=== PATIENT | male | born 1965 | race Caucasian/White ===

== ENCOUNTER → 2017-05-06 | Outpatient (CLI) | payer OTHER ==
--- NOTE | 2017-05-06 21:33 | MR ---
MR right hip HISTORY: Right hip pain Correlation to plain film 03/30/2017, 04/20/2017 Multiplanar multisequence images of pelvis and small [id number] images obtained through the right hip MRI findings correlate with plain film showing serpiginous linear right femoral head low signal on T1 and T2-weighted sequences at the level of the sclerotic line seen on plain film, intermediate signal on T1, high signal on T2-weighted sequences involves the proximal femur to include intertrochanteric region to the femoral head. There is a right hip joint effusion. Articular cartilage signal is mildl y irregular the medial aspect. IMPRESSION: Osteonecrosis right femoral head with mild collapse. Joint effusion. Bone marrow edema is present.
== END | disposition home or self-care (01) ==
LOC: RADMRIMAIN 14:38
PROVIDERS: ATTEND Orthopaedic Surgery
DX: M87.851 Other osteonecrosis, right femur (principal); M25.451 Effusion, right hip; M89.8X8 Other specified disorders of bone, other site

== ENCOUNTER → 2017-09-06 | Outpatient (CLI) | payer OTHER ==
--- NOTE | 2017-09-06 16:09 | MR ---
EXAMINATION TYPE: MR knee RT wo con DATE OF EXAM: 09/06/2017 COMPARISON: Right knee x-ray March 30, 2017. HISTORY: Rt knee pain TECHNIQUE: Multiplanar, multisequence images of the knee is performed without IV contrast. FINDINGS: LATERAL MENISCUS: Anterior and posterior horns are intact without tear. MEDIAL MENISCUS: Anterior horn is intact without tear. Oblique increased signal posterior horn of lat eral meniscus appears to extend to the central inferior surface on sagittal image 6. CRUCIATE LIGAMENTS: The anterior and posterior cruciate ligaments are intact and unremarkable. COLLATERAL LIGAMENTS: The medial collateral ligament and lateral collateral ligament complex are inta ct. Mild fluid signal surrounds medial collateral ligament. EXTENSOR MECHANISM: Visualized quadriceps and patellar tendons are intact. EFFUSION: There is small to moderate-sized suprapatellar joint effusion. POPLITEAL CYST: No popliteal/martin cyst. TRICOMPARTMENT SPACES: There is mild tricompartment joint space loss. No significant spurring is seen . CARTILAGE: There is no significant chondromalacia patella. There is mild fissuring of articular carti alf medial tibial femoral space coronal image 19. Mild diffuse cartilaginous loss lateral tibiofemor al compartment is seen. BONE MARROW SIGNAL: No focal abnormal marrow signal is appreciated. OTHER: No additional significant abnormality is appreciated. IMPRESSION: 1. Oblique full-thickness tear posterior horn of medial meniscus. 2. Mild MCL sprain injury. 3. Background mild tricompartment degenerative changes as detailed above. 4. Small to moderate-sized suprapatellar joint effusion.
== END | disposition home or self-care (01) ==
LOC: RADMRIMAIN 15:13
PROVIDERS: ATTEND Orthopaedic Surgery
DX: S83.241A Other tear of medial meniscus, current injury, right knee, initial encounter (principal); S83.411A Sprain of medial collateral ligament of right knee, initial encounter; M17.11 Unilateral primary osteoarthritis, right knee

== ENCOUNTER → 2018-01-02 | Outpatient (CLI) | payer OTHER ==
--- NOTE | 2018-01-02 10:32 | XR ---
EXAMINATION TYPE: XR ribs LT w pa chest xray DATE OF EXAM: 01/02/2018 COMPARISON: NONE HISTORY: Pain TECHNIQUE: Single view of the chest views of the ribs are submitted. FINDINGS: The lungs demonstrate diffuse granulomatous change. No Evidence for pneumothorax. No evide nce for focal contusion. Mediastinal structures are midline. Evaluation of the ribs demonstrate non displaced fractures of left ribs 5 through 9. IMPRESSION: 1. Fractures of left ribs 5 through 9. No evidence for pneumothorax. 2. Remote granulomatous disease.
== END | disposition home or self-care (01) ==
LOC: RADXRYALE 09:52
PROVIDERS: ATTEND Family Medicine
DX: S22.42XA Multiple fractures of ribs, left side, initial encounter for closed fracture (principal)

== ENCOUNTER → 2018-01-04 | Outpatient (CLI) | payer OTHER ==
--- NOTE | 2018-01-05 00:38 | CT ---
EXAMINATION TYPE: CT chest w con DATE OF EXAM: 01/04/2018 COMPARISON: 04/09/2014 HISTORY: 52 year-old male shortness of breath, fell 5 days ago. Pain lt upper ribs, multiple rib frac tures. TECHNIQUE: Contiguous axial scanning of the chest after the administration of 100 mL of Isovue 300. Coronal/sagittal reconstructions performed. CT DLP: 661mGycm. Automatic exposure control utilized for a dose reduction. FINDINGS: Heart normal size without pericardial effusion. Coronary vessel calcifications are present. Aorta normal caliber with conventional arch vessel branching anatomy. Numerous scattered small mediastinal lymph nodes are unchanged. Partially calcified precarinal lymph node is stable in size at 1.1 cm but with increasing calcification in the interval. Partially calcifi ed subcarinal lymph node. Innumerable calcified pulmonary nodules are demonstrated. There is mild susy trilobular emphysema and patchy atelectasis or scarring at the peripheral right base. Trace left pleu ral effusion. Pdug-am-[id number] diffuse bronchial wall thickening. Low-attenuation of the liver compatible with fatty infiltration. Visualized upper abdomen otherwise s hows moderate stool burden. Bones: Nondisplaced to mildly displaced fractures of the left lateral fifth, sixth, seventh, ninth, a nd 10th ribs. Especially along the lateral fourth intercostal space, there is moderate soft tissue th ickening with a 8 mm focus of vascular blush, reference axial image 32. Mild endplate spondylosis mid to lower thoracic spine. IMPRESSION: 1. Innumerable calcified pulmonary nodules, increased from 2014 suggest prior granulomatous disease, healed varicella pneumonia, or healed fungal infection. 2. COPD with mild emphysema. Trace left pleural effusion. 3. Nondisplaced to mildly displaced fractures of the left lateral fifth, sixth, seventh, ninth, and 1 0th ribs. There is prominent soft tissue swelling and hematoma in the left fourth intercostal space w ith a small 8mm vascular blush located within the intercostal space suggesting a small area of active bleeding. 4. Hepatic steatosis.
== END | disposition home or self-care (01) ==
LOC: RADCTMAIN 19:12
PROVIDERS: ATTEND Family Medicine
DX: J43.9 Emphysema, unspecified (principal); S22.42XA Multiple fractures of ribs, left side, initial encounter for closed fracture; R91.8 Other nonspecific abnormal finding of lung field
CPT/HCPCS: 71260; Q9967

== ENCOUNTER → 2018-07-11 | Outpatient (CLI) | payer OTHER | END | disposition home or self-care (01) | LOC: LABPAT 13:50 | PROVIDERS: ATTEND Orthopaedic Surgery | DX: Z01.812 Encounter for preprocedural laboratory examination (principal) | CPT/HCPCS: 87070 ==

== ENCOUNTER → 2018-07-20 | Outpatient (CLI) | payer OTHER ==
[2018-07-20 13:56] LABS: Potassium 4.8 mmol/L (3.5-5.1)
[2018-07-20 14:02] LABS: Anisocytosis Slight; Basophils # (A) 0.1 k/uL (0-0.2); Basophils % (A) 1 %; Eosinophils # (A) 0.2 k/uL (0-0.7); Eosinophils % (A) 3 %; HGB 12.8 gm/dL (13.0-17.5); Hypochromasia Slight; Lymphocytes # (A) 1.9 k/uL (1.0-4.8); Lymphocytes % (A) 20 %; MCH 27.6 pg (25.0-35.0); MCHC 30.5 g/dL (31.0-37.0); MCV 90.4 fL (80.0-100.0); Mean Platelet Volume 6.8; Monocytes # (A) 0.7 k/uL (0-1.0); Monocytes % (A) 8 %; Neutrophils # (A) 6.1 k/uL (1.3-7.7); Neutrophils % (A) 66 %; Platelet Count 310 k/uL (150-450); RBC 4.65 m/uL (4.30-5.90); RDW 17.5 % (11.5-15.5); WBC 9.3 k/uL (3.8-10.6)
[2018-07-20 14:19] LABS: INR 0.9 (<1.2); Prothrombin Time 9.9 sec (9.0-12.0)
== END | disposition home or self-care (01) ==
LOC: LABPAT 13:11
PROVIDERS: ATTEND Orthopaedic Surgery
DX: Z01.812 Encounter for preprocedural laboratory examination (principal); M16.11 Unilateral primary osteoarthritis, right hip; I48.91 Unspecified atrial fibrillation; E87.8 Other disorders of electrolyte and fluid balance, not elsewhere classified
CPT/HCPCS: 36415; 80051; 85025; 85610

== ENCOUNTER → 2018-08-29 | Outpatient (CLI) | payer OTHER ==
[2018-08-29 15:41] LABS: Anisocytosis Slight; HCT 40.8 % (39.0-53.0); HGB 12.8 gm/dL (13.0-17.5); Hypochromasia Moderate; MCHC 31.2 g/dL (31.0-37.0); MCV 89.7 fL (80.0-100.0); Mean Platelet Volume 7.1; Platelet Count 389 k/uL (150-450); RBC 4.55 m/uL (4.30-5.90); RDW 18.1 % (11.5-15.5); WBC 8.8 k/uL (3.8-10.6)
[2018-08-29 15:43] LABS: INR 0.9 (<1.2); Prothrombin Time 10.1 sec (9.0-12.0)
[2018-08-29 17:30] LABS: Band Neutrophils % 2 %; Eosinophils # (M) 0.44 k/uL (0-0.7); Lymphocytes # (M) 2.99 k/uL (1.0-4.8); Monocytes # (M) 0.26 k/uL (0-1.0); Neutrophils % (M) 56 %; Nucleated Red Blood Cells 0 /100 WBC (0-0); Total Cells Counted 100
[2018-08-29 17:31] LABS: Poikilocytosis (M) Present; Polychromasia Present; Target Cells Present
[2018-08-29 18:57] LABS: Anion Gap 7.7 mmol/L (4.00-12.00); Carbon Dioxide 23.3 mmol/L (21.6-31.8); Potassium 4.3 mmol/L (3.5-5.5)
== END | disposition home or self-care (01) ==
LOC: LABWHC1 14:34
PROVIDERS: ATTEND Orthopaedic Surgery
DX: Z01.812 Encounter for preprocedural laboratory examination (principal); M16.11 Unilateral primary osteoarthritis, right hip
CPT/HCPCS: 36415; 80051; 85025; 85610; 85730

== ENCOUNTER → 2018-09-01 | Outpatient (CLI) | payer OTHER | END | disposition home or self-care (01) | LOC: LABWHC1 12:58 | PROVIDERS: ATTEND Orthopaedic Surgery | DX: Z53.1 Procedure and treatment not carried out because of patient's decision for reasons of belief and group pressure (principal) ==

== ENCOUNTER 2018-09-04 07:30 | Inpatient (IN) | payer OTHER ==
[2018-08-30 13:46] VITALS: BMI 29.2
--- NOTE | 2018-09-03 18:57 | HP ---
HISTORY AND PHYSICAL REASON FOR ADMISSION: Surgery is scheduled for 09/04/2018 HISTORY OF PRESENT ILLNESS: Renzo Purvis is a 53-year-old patient seen with symptomatic right hip avascular necrosis/osteoarthritis. We discussed options. He elected to proceed with right total hip arthroplasty. Consent was obtained. Preoperative medical clearance had been obtained from Dr. Rice. PAST MEDICAL HISTORY: Hypertension, hyperlipidemia, asthma, COPD. PAST SURGICAL HISTORY: Right knee arthroscopy. DAILY MEDICATIONS: Atorvastatin, Atrovent, Diltiazem, omeprazole. ALLERGIES: None. SOCIAL HISTORY: He smokes 1/4 pack cigarettes daily. PHYSICAL EXAMINATION: Physical evaluation of the right hip: There is diffuse tenderness, very limited range of motion with severe pain. Positive hip impingement sign. Straight leg raise negative. Right lower extremity approximately 1 inch shorter than the left. Distal neurovascular exam is intact. Radiographs of the right hip reveal osteoarthritic changes, evidence of avascular necrosis of the femoral head. IMPRESSION: 1. Right hip avascular necrosis/osteoarthritis. 2. Hypertension. 3. Chronic obstructive pulmonary disease. 4. Tobacco use. PLAN: Right total hip arthroplasty. Surgery is scheduled for 09/04/2018. MMODL / IJN: [id number] /
[~2018-09-04 07:30] MED LIST: HYDROmorphone 0.5 MG/0.5 ML SYRINGE IVP PRN; LACTATED RINGERS 1,000 ML IV SCH; LIDOCAINE 1% 20 ML VIAL (10MG/ML) FOR IV START INTRADERMA PRN; TRANEXAMIC ACID 1,000 MG in SODIUM CHLORIDE 0.9% 100 ML IVPB ONE; ceFAZolin IN SWFI 2 GM/20 ML SYRINGE IVP ONE
[2018-09-04] MEDS: ACETAMINOPHEN TAB 500 MG TAB PO ONE ×2 (11:03→16:31)
[2018-09-04] MEDS: MELOXICAM 7.5 MG TAB PO ONE ×2 (11:03→16:31)
[2018-09-04] MEDS: ONDANSETRON 4 MG/2 ML VIAL IVP ONE ×2 (11:47→16:32)
[2018-09-04] MEDS ORDERED: ROPIVACAINE 246.25 MG, EPINEPHrine 0.5 MG, KETOROLAC 30 MG, WATER FOR INJECTION,STERILE... MISCELLANE ONE ×4 (12:13)
[2018-09-04] MEDS ORDERED: PROPOFOL 10 MG/ML 20 ML VIAL IV ONE (12:51)
[2018-09-04] MEDS ORDERED: TRANEXAMIC ACID 1,000 MG/10 ML VIAL ONE (12:51)
[2018-09-04] MEDS ORDERED: PHENYLEPHRINE-0.9% NACL SYG 1 MG/10 ML SYRINGE ONE (12:51)
[2018-09-04] MEDS ORDERED: SODIUM CHLORIDE 0.9% 100 ML BAG ONE (12:51)
[2018-09-04] MEDS ORDERED: MIDAZOLAM 2 MG/2 ML VIAL ONE (12:51)
[2018-09-04] MEDS ORDERED: ceFAZolin 3,000 MG in SODIUM CHLORIDE 0.9% IRRIGATIO 3,000 ML IRRIGATION ONE (13:40)
[2018-09-04] MEDS ORDERED: traMADol 50 MG TAB PO PRN (15:01)
[2018-09-04] MEDS ORDERED: NALOXONE 0.4 MG/ML 1 ML VIAL IV PRN (15:01)
[2018-09-04] MEDS ORDERED: HYDROcodone/APAP 7.5-325MG 1 EACH TAB PO PRN (15:01)
[2018-09-04] MEDS ORDERED: ONDANSETRON 4 MG/2 ML VIAL IVP PRN (15:01)
[2018-09-04] MEDS ORDERED: HYDROmorphone 0.5 MG/0.5 ML SYRINGE IVP PRN ×2 (15:01)
[2018-09-04] MEDS ORDERED: HYDROmorphone 1 MG/ML 1 ML SYRINGE IVP PRN (15:01)
--- NOTE | 2018-09-04 15:01 | P.OP ---
Date of Procedure: 09/04/18 Preoperative Diagnosis: Right hip avascular necrosis/osteoarthritis Postoperative Diagnosis: Same Procedure(s) Performed: Direct anterior right total hip arthroplasty Implants: 1. Depuy Corail KA with collar size 14 press-fit femoral stem 2. Depuy pinnacle 58 mm press-fit acetabular shell 3. Depuy pinnacle polyethylene acetabular liner +4 neutral 58 mm OD 36 mm ID 4. Biolox delta ceramic femoral head +1.5 36 mm Anesthesia: local, spinal Surgeon: Bob Rock [facility] Chair #1: Sam Montes Estimated Blood Loss (ml): 100 Pathology: other (Femoral head) Condition: stable Disposition: PACU Indications for Procedure: 53-year-old patient seen with symptomatic right hip avascular necrosis/osteoarthritis. After we discussed treatment options, he elected to proceed with total hip arthroplasty. Operative Findings: See description of procedure Description of Procedure: The patient was taken to the operative suite. Patient underwent a spinal anesthetic by the department of anesthesia. Patient was then transferred to the [place] table. Patient was given preoperative IV antibiotics and TXA. Both lower extremities were placed in standard leg spars. The hip was then prepped and draped in the normal sterile orthopedic fashion. A standard anterior incision was made beginning 3 cm lateral and 1 cm distal to the ASIS extending 10 cm. Dissection was then carried down through the subcutaneous soft tissues down to the fascia overlying the tensor fascia mikey. An incision was now made through the fascia. Careful dissection was taken down exposing the tensor fascia mikey muscle. A Cobra retractor was now placed along the medial femoral neck and a second one along the lateral femoral neck. The venous circumflex vessels were now identified, cauterized and clipped. We identified the anterior hip capsule. An incision was made through the hip capsule along the lateral border. I performed a partial anterior capsulectomy. Retractors were now placed around the femoral neck itself. A femoral neck cut was now made with a sagittal saw. It was completed with an osteotome at the lateral neck area. The femoral head was now removed without difficulty. There was obvious significant avascular necrosis of the femoral head as well as osteoarthritic changes. The extremity was now rotated to 45 of external rotation. It was locked in position. Residual labrum was now debrided out. Serial reaming was performed of the acetabulum while Joey PINEDA assisted holding an anterior retractor for exposure. Once we reached the appropriate size and a trial was position and fit nicely. The appropriate size was now chosen opened and made available. It was introduced into the acetabulum without difficulty. The C-arm/fluoroscopy was now brought into the operative field. We made sure we had a true AP pelvic view. We now under direct C-arm/fluoroscopy introduced into the acetabular component with appropriate version and inclination. I held the cup in appropriate position well Joey PINEDA used a mallet to seat the acetabular component. I noted the component now to be well seated and stable. Acetabular cup introduce her was removed. The C-arm was pulled back. An appropriate liner was introduced and clicked into position. It was felt to be stable. At this point retractors were removed. The extremity was now placed into 120 external rotation with no traction. The leg was now dropped to the ground and adducted. Appropriate retractors were now positioned along the proximal femur. We also placed our femoral look into position. Additional capsular releasing was performed to gain access to the proximal femur. We now used a box osteotome. A canal finder was now utilized. Serial broaching was now performed with the assistance of Joey PINEDA tapping the broaches down with a mallet while held the broach in appropriate rotation and position. This was done until we reached the appropriate size with good overall rotational stability. Appropriate calcar planing was performed. A trial head/neck was placed into position. The hip was now reduced. The C-arm/fluoroscopy was brought back into the operative field. A spot film was obtained of the nonoperative hip. A spot film was obtained of the trial components. Overlays were performed, we noted good overall alignment and positioning for determining leg length. The C- arm/fluoroscopy was pulled back. Retractors were repositioned and the hip was dislocated. The leg was again taken down to the ground and adducted. Appropriate retractors were repositioned as well as the femoral hook. All trial components were removed. The femoral implant was opened along with the femoral head. The femoral implant was introduced on the appropriate handle into our pre-broached area. I held the component position well Joey PINEDA used a mallet to seat the femoral component. The femoral component was now noted to be well seated and stable.. The femoral head was introduced with good positioning and fixation noted. Retractors were now removed. The hip was now reduced. There appeared be good positioning of the hip confirmed on intraoperative fluoroscopy. Spot films were obtained to document this. A second gram of TXA was given. The deep and superficial soft tissues were infiltrated with local analgesic. Bipolar cautery had been utilized intermittently through the procedure for hemostasis. The wound was irrigated copiously with pulse lavage mechanical irrigation. The fascia was repaired with Vicryl suture. The subcutaneous soft tissues were repaired in layers with Vicryl suture. The skin was approximated with pernio/Dermabond. Sterile dressings were applied. Patient was then awakened, transferred to a bed and taken to recovery in stable con dition. Joey PINEDA assisted with the complex procedure.
[2018-09-04] MEDS ORDERED: IV FLUID CONTINUATION 1,000 ML IV ONE ×2 (15:18)
--- NOTE | 2018-09-04 15:56 | XR ---
Limited right hip HISTORY: Hip arthroplasty Intraoperative C-arm image documents the procedure.
--- NOTE | 2018-09-04 15:57 | FL ---
Fluoroscopy HISTORY: Hip arthroplasty 34 seconds fluoroscopy time supplied to the referring clinician. 1 intraoperative C-arm images docum ent the procedure. See dictated report from orthopedic surgery.
[2018-09-04] MEDS: LACTATED RINGERS 1,000 ML IV SCH (18:20)
[2018-09-04] MEDS ORDERED: SENNOSIDES-DOCUSATE SODIUM 1 EACH TAB PO SCH (21:00)
[2018-09-04] MEDS ORDERED: CYCLOBENZAPRINE 10 MG TAB PO PRN (21:18)
[2018-09-04] MEDS ORDERED: LORazepam 2 MG/ML INJ IV PRN ×3 (21:18)
[2018-09-04] MEDS ORDERED: IPRATROPIUM-ALBUTEROL 3 ML NEB INHALATION PRN (21:18)
[2018-09-04] MEDS ORDERED: THIAMINE 100 MG/ML 2 ML VIAL IM STA (21:18)
[2018-09-04] MEDS ORDERED: cloNIDine HCL 0.1 MG TAB PO PRN (21:19)
[2018-09-04] MEDS ORDERED: DILTIAZEM CD 120 MG CAP.ER.24H PO SCH (21:30)
[2018-09-04] MEDS: THIAMINE 100 MG TAB PO SCH (22:11)
[2018-09-04] MEDS: NICOTINE 14MG/24HR PATCH TRANSDERM SCH (22:57)
[2018-09-04] MEDS: HYDROcodone/APAP 7.5-325MG 1 EACH TAB PO PRN (22:59)
[2018-09-04] MEDS: ceFAZolin IN SWFI 2 GM/20 ML SYRINGE IVP SCH (23:00)
--- NOTE | 2018-09-04 23:14 | CONS ---
CONSULTATION REASON FOR CONSULTATION: Advice regarding atrial fibrillation and other medical issues requested by Dr. Rock. HISTORY OF PRESENT ILLNESS: This 53-year-old gentleman with a past medical history of multiple medical problems including COPD, DVT, GERD, hypertension, hyperlipidemia, history of liver disease with liver cirrhosis, hemorrhoids, anxiety being followed by Dr. Zander Rice in the outpatient setting. The patient underwent right total knee joint arthroplasty. There is no history of fever, rigors. No history of headache, loss of consciousness or seizures. Patient reports the patient drinks about at least 4 drinks of alcohol per day. PAST MEDICAL HISTORY: History of atrial fibrillation, COPD, DVT, GERD, hyperlipidemia, history of liver cirrhosis, colonoscopy, anxiety. MEDICATIONS: Prior to admission home medications are: 1. Vistaril 50 mg q.h.s. and 25 mg q.a.m. 2. Prilosec 20 mg a.c. b.i.d. 3. Atrovent 2 puffs q.6h p.r.n. 4. Gabapentin 800 mg q.h.s. 5. 1200 mg p.o. daily. 6. Diltiazem 120 mg p.o. q.h.s. 7. Flexeril 10 mg t.i.d. p.r.n. 8. Lipitor 40 mg p.o. daily. ALLERGIES: CIPRO, PENICILLIN, BACTRIM. FAMILY HISTORY: History of cancer in the family. SOCIAL HISTORY: History of smoking, and alcohol. REVIEW OF SYSTEMS: ENT: No diminished vision. No diminished hearing. CARDIOVASCULAR: No angina or palpitations. RESPIRATION: Occasional cough. GI no nausea or vomiting. : No dysuria. NERVOUS SYSTEM: No numbness or weakness. ALLERGY/IMMUNOLOGY: No asthma or hayfever. MUSCULOSKELETAL: As mentioned earlier. HEMATOLOGY/ONCOLOGY: No history of anemia. ENDOCRINE: No history of diabetes or hypothyroidism. CONSTITUTIONAL: As mentioned earlier. DERMATOLOGY: Negative. RHEUMATOLOGY: Negative. PSYCHIATRY: As mentioned earlier. PHYSICAL EXAMINATION: Alert and oriented x3, pulse 97, blood pressure 130/83, respirations 16, temperature 98.2, pulse ox 94% on room air. HEENT is conjunctivae normal. Oral mucosa moist. NECK is no jugular venous distention. No carotid bruit. No lymph node enlargement. CARDIOVASCULAR: S1-S2. No S3, no S4. RESPIRATORY: Breath sounds diminished in the bases. Bilateral scattered rhonchi and crackles. Expiratory wheezing also present. ABDOMEN: Soft, nontender. LEGS: Status post right hip surgery. NERVOUS SYSTEM: Higher functions as mentioned earlier. Moves all four extremities. No focal deficits. LYMPHATICS: No lymph nodes palpable in the neck, axillae or groin. SKIN: No ulcer. No rash. No bleeding. JOINTS: As mentioned earlier. LABS: Which are done prior to admission include a hemoglobin is 12.8 and platelets normal and chemistry was sodium 134. AST/ALT was 15 and 51. Vitamin D was 9.9 2016. ASSESSMENT: 1. Status post right total hip joint arthroplasty. 2. History of ETOH. 3. History of chronic obstructive pulmonary disease. 4. Atrial fibrillation. 5. History of deep vein thrombosis. 6. Gastroesophageal reflux disease. 7. Hyperlipidemia. 8. History of liver disease and liver cirrhosis. 9. History of hemorrhoids. 10.History of anxiety. 11.History of continued ongoing nicotine dependence. 12.History of THC. RECOMMENDATIONS AND DISCUSSION: In this 53-year-old gentleman who presented with multiple complex medical issues, we will monitor the patient closely, continue the current medications, monitoring, management and symptomatic treatment. I would recommend DVT prophylaxis. I would also recommend [facility] protocol for alcohol withdrawal. Resume the home medications. Monitor blood pressure closely. Otherwise, incentive spirometry. I would also recommend a course of bronchodilators also. We will follow the patient closely with you and the patient may be asked to follow up with primary physician closely after discharge. Thank you, Dr. Rock for asking us to participate in the care of this patient. BRENDAL / MITRA: [id number] / ALEXANDER
[2018-09-05] MEDS: LACTATED RINGERS 1,000 ML IV SCH (01:40)
[2018-09-05] MEDS: HYDROcodone/APAP 7.5-325MG 1 EACH TAB PO PRN (04:15)
[2018-09-05] MEDS: ceFAZolin IN SWFI 2 GM/20 ML SYRINGE IVP SCH (04:15)
[2018-09-05] MEDS ORDERED: PANTOPRAZOLE 40 MG TABLET PO SCH (07:30)
[2018-09-05 07:48] VITALS: BP 138/82; RESP 18; TEMP 98.2
[2018-09-05] MEDS: THIAMINE 100 MG TAB PO SCH (07:59)
[2018-09-05] MEDS: NICOTINE 14MG/24HR PATCH TRANSDERM SCH (08:01)
[2018-09-05 08:18] LABS: Anisocytosis Slight; Basophils # (A) 0.1 k/uL (0-0.2); Basophils % (A) 1 %; Eosinophils # (A) 0.2 k/uL (0-0.7); Eosinophils % (A) 2 %; HCT 36.7 % (39.0-53.0); HGB 11.2 gm/dL (13.0-17.5); Hypochromasia Marked; Lymphocytes # (A) 1.1 k/uL (1.0-4.8); Lymphocytes % (A) 14 %; MCH 27.8 pg (25.0-35.0); MCHC 30.4 g/dL (31.0-37.0); MCV 91.2 fL (80.0-100.0); Mean Platelet Volume 7.3; Monocytes # (A) 0.6 k/uL (0-1.0); Monocytes % (A) 8 %; Neutrophils # (A) 5.6 k/uL (1.3-7.7); Neutrophils % (A) 73 %; Platelet Count 308 k/uL (150-450); RBC 4.03 m/uL (4.30-5.90); RDW 16.8 % (11.5-15.5); WBC 7.7 k/uL (3.8-10.6)
[2018-09-05] MEDS ORDERED: ATORVASTATIN 40 MG TAB PO SCH (09:00)
[2018-09-05] MEDS ORDERED: ENOXAPARIN 40 MG/0.4 ML SYRINGE SQ SCH (09:00)
[2018-09-05] MEDS ORDERED: MELOXICAM 7.5 MG TAB PO SCH (09:00)
[2018-09-05] MEDS ORDERED: hydrOXYzine PAMOATE 25 MG CAP PO SCH ×2 (09:00→21:00)
[2018-09-05] MEDS ORDERED: GABAPENTIN 400 MG CAP PO SCH (09:00)
[2018-09-05] MEDS: IPRATROPIUM-ALBUTEROL 3 ML NEB INHALATION SCH ×2 (09:12→13:23)
[2018-09-05 09:37] VITALS: PULSE 93
--- NOTE | 2018-09-05 13:01 | P.PN ---
Subjective Progress Note Date: 09/05/18 Principal diagnosis: Status post direct anterior right total hip arthroplasty Patient evaluated at bedside, is doing very well. No chest pain or shortness of breath. No acute pain involving the hip. No issues with therapy. Objective - Vital Signs Vital signs: Vital Signs Temp 98.2 F 09/05/18 07:00 Pulse 90 09/05/18 09:22 Resp 18 09/05/18 08:07 BP 138/82 09/05/18 07:00 Pulse Ox 99 09/05/18 07:00 Intake & Output 09/04/18 09/05/18 09/05/18 18:59 06:59 18:59 Intake Total 1126 180 Output Total 100 1050 Balance 1026 -870 Intake: IV 1126 Oral 180 Output: Urine 1050 Estimated Blood Loss 100 Other: Voiding Method Urinal # Voids 1 - Exam Right lower extremity: Incision is clean, dry, and intact. The exofin fusion tape is in good condition. There is minimal soft tissue swelling and ecchymosis surrounding the medial and lateral aspects of the incision. Calf is soft, no tenderness with palpation. Plantar flexion, dorsiflexion, EHL, FHL are intact. Sensory exam to light touch throughout the extremity is intact, dorsal pedis pulses 2+. - Labs CBC & Chem 7: 09/05/18 07:23 Labs: Abnormal Lab Results - Last 24 Hours (Table) 09/05/18 Range/Units 07:23 RBC 4.03 L (4.30-5.90) m/uL Hgb 11.2 L (13.0-17.5) gm/dL Hct 36.7 L (39.0-53.0) % MCHC 30.4 L (31.0-37.0) g/dL RDW 16.8 H (11.5-15.5) % Assessment and Plan Plan: Assessment: 1. Postop day 1 status post right anterior right total hip arthroplasty Plan: Pain control, we'll discharge home on oral medication GI and DVT prophylaxis, aspirin 81 mg twice a day Wound care instructions discussed Home physical therapy and nursing after discharge Medical recommendations Patient will be discharged home today Time with Patient: Less than 30
--- NOTE | 2018-09-05 13:04 | P.DS ---
Providers Date of admission: 09/04/18 10:48 Expected date of discharge: 09/05/18 Attending physician: Bob Rock Consults: 09/04/18 15:01 Consult Physician Routine Consulting Provider: Michelle iWld Consult Reason/Comments: Medical management Do you want consulting provider notified?: Yes [facility] [place] [facility] Course: Date of admission: 09/04/2018 Date of discharge: 09/05/2018 Admission diagnosis: Status post direct anterior right total hip arthroplasty Discharge diagnosis: Same Attending physician: Dr. Rock Surgical procedures: Direct anterior right total hip arthroplasty Brief history: Patient is a 53-year-old male with a history of avascular necrosis/arthritis right hip. At this point patient has failed conservative treatment measures and has opted to proceed with a elective elective direct anterior right total hip arthroplasty. Hospital course: Details of patient's surgery can be found in operative report. Patient tolerated the procedure well and was subsequently transported to orthopedic floor. Patient's orthopeidc and medical care was provided daily. Patient had daily laboratory tests performed for evaluation of overall blood counts. Patient had daily physical therapy to include strengthening range of motion as well as education with walker ambulation. Patient was treated with Lovenox for their postoperative DVT prophylaxis during their inpatient stay. Patient was noted to have a relatively uneventful postoperative course. Patient reported satisfactory pain control with oral pain medications by postoperative day 0. Patient showed satisfactory progress with physical therapy. Patient moved steadily through the program and had no difficulty meeting the goals by postoperative day 1. Given patient's otherwise satisfactory course and having met physical therapy goals, plan is to discharge patient home on postoperative day 1. Discharge condition/disposition: Patient will be discharged home in stable condition. Discharge medications: Instructions are given on resumption of patient's normal daily medications per primary care recommendation, in addition patient will be prescribed Bosler 7.5 mg/325 mg, aspirin 81 mg. Discharge instructions: 1. Wound care and infection precautions, keep incision dry and covered while showering, no lotions, creams, moisturizers. No soaking, tubs, pools, hottubs. Do not scrub over the incision. 2. Weight-bear as tolerated with walker / cane until follow-up. 3. Ice and elevate when necessary. Do not exceed 20 minutes per hour with ice pack. 4. Utilize compression sleeve until seen at first follow up appointment. 5. Visiting nursing care. 6. Home physical therapy. 7. Pain meds and anticoagulants per prescription. 8. Pain medication has potential to cause constipation. Increase oral fluid and fiber intake. Contact primary care provider if you have not had a bowel movement within 48 hours after discharge 9. No anti-inflammatory medication until discussed at first post operative visit, this including Motrin, Aleve, Mobic, Diclofenac. 10. Follow up in office at 2 weeks postop with Joey Montes PA-C 11. Follow up with your primary care doctor 7-10 days after discharge. 12. Contact [facility] with any questions, . Procedures: Direct anterior right total hip arthroplasty Patient Condition at Discharge: Good Plan - Discharge Summary Discharge Rx Participant: Yes New Discharge Prescriptions: New Aspirin [Adult Low Dose Aspirin EC] 81 mg PO BID #60 tablet. HYDROcodone/APAP 7.5-325MG [Bosler 7.5] 1 - 2 each PO Q6HR PRN #40 tab PRN Reason: Pain No Action hydrOXYzine PAMOATE [Vistaril] 25 mg PO QAM Gabapentin 1,200 mg PO DAILY Cyclobenzaprine [Flexeril] 10 mg PO TID PRN PRN Reason: Spasms Ipratropium [place] [Atrovent Hfa] 2 puff INHALATION RT-Q6H PRN PRN Reason: Shortness Of Breath Diltiazem HCl [Diltiazem 24Hr CD] 120 mg PO HS Omeprazole [PriLOSEC] 20 mg PO AC-BID Atorvastatin [Lipitor] 40 mg PO DAILY hydrOXYzine PAMOATE [Vistaril] 50 mg PO HS Gabapentin 1,800 mg PO HS Discharge Medication List Cyclobenzaprine [Flexeril] 10 mg PO TID PRN 09/04/13 [History] Gabapentin 1,200 mg PO DAILY 09/04/13 [History] Ipratropium [place] [Atrovent Hfa] 2 puff INHALATION RT-Q6H PRN 09/04/13 [History] hydrOXYzine PAMOATE [Vistaril] 25 mg PO QAM 09/04/13 [History] Diltiazem HCl [Diltiazem 24Hr CD] 120 mg PO HS 10/17/17 [History] Atorvastatin [Lipitor] 40 mg PO DAILY 06/26/18 [History] Omeprazole [PriLOSEC] 20 mg PO AC-BID 10/18/17 [History] hydrOXYzine PAMOATE [Vistaril] 50 mg PO HS 07/19/18 [History] Gabapentin 1,800 mg PO HS 08/30/18 [History] Aspirin [Adult Low Dose Aspirin EC] 81 mg PO BID #60 tablet. 09/05/18 [Rx] HYDROcodone/APAP 7.5-325MG [Bosler 7.5] 1 - 2 each PO Q6HR PRN #40 tab 09/05/18 [Rx] Follow up Appointment(s)/Referral(s): [facility], [NON-STAFF] - Sam Montes PAC [PHYSICIAN CASER] - 09/20/18 1:50 pm Zander Rice DO [Primary Care Provider] - 09/12/18 1:20 pm (With [place]) Patient Instructions/Handouts: Anterior Hip Replacement (DC) Activity/Diet/Wound Care/Special Instructions: Orthopedic Discharge Instructions: 1. Wound care and infection precautions, keep incision dry and covered while showering, no lotions, creams, moisturizers. No soaking, pools, hot tubs. Do not scrub over incision. 2. Weight-bear as tolerated with walker / cane until follow-up. 3. Ice and elevate when necessary. 4. Utilize compression sleeve until seen at first follow up appointment. 5. Pain meds and anticoagulants per prescription. 6. Pain medication has potential to cause constipation. Increase oral fluid and fiber intake. Contact primary care provider if you have not had a bowel movement within 48 hours after discharge. 7. No anti-inflammatory medication until discussed at first post operative visit, this including Motrin, Aleve, Mobic, Diclofenac. 8. Follow up in office at 2 weeks postop with Joey Montes PA-C 9. Follow up with your primary care doctor 7-10 days after discharge. 10. Contact [facility] with any questions, . Discharge Disposition: HOME WITH HOME HEALTH SERVICES
[2018-09-05] MEDS ORDERED: GABAPENTIN 300 MG CAP PO SCH (21:00)
--- NOTE | 2018-09-07 00:05 | PN ---
PROGRESS NOTE DATE OF SERVICE: 09/05/2018 This 53-year-old gentleman presented was admitted to the hospital after right total hip joint arthroplasty. Improving significantly. No chest pain. No palpitations. No fever. EXAM: Alert and oreinted times three. Pulse is 90. Blood pressure 138/82, respiration 18, temperature 98.2, pulse ox 98% on room air. HEENT: Conjunctivae normal. NECK: No JVD. CARDIOVASCULAR: S1, S2. RESPIRATIONS: Breath sounds diminished in the bases. A few scattered rhonchi. Abdomen soft, nontender. central nervous system: No focal deficits. LABS: WBC 7.7, hemoglobin 11.2. ASSESSMENT: 1. Status post right total hip joint arthroplasty. 2. History of ETOH. 3. History of chronic obstructive pulmonary disease. 4. Atrial fibrillation. 5. History of deep vein thrombosis. 6. Gastroesophageal reflux disease. 7. Hyperlipidemia. 8. History of liver disease and liver cirrhosis. 9. History of hemorrhoids. 10.History of anxiety. 11.History of continued ongoing nicotine dependence. 12.History of THC use. RECOMMENDATIONS AND MANAGEMENT: Current management and medications. Otherwise, at this time, I recommend continue with home medications. Closely follow with primary physician in the outpatient setting. . MMODL / IJN: [id number] /
== END 2018-09-05 14:32 | disposition home health service (06) | DRG 470 ==
LOC: 2ORMAIN 10:48 → 4SSUR 14:55
PROVIDERS: ADMIT Orthopaedic Surgery; ATTEND Orthopaedic Surgery
PROC: 0SR904A Replacement of Right Hip Joint with Ceramic on Polyethylene Synthetic Substitute, Uncemented, Open Approach (ICD-10-PCS; principal; 2018-09-04 12:40)
DX: M16.11 Unilateral primary osteoarthritis, right hip (principal); M87.9 Osteonecrosis, unspecified; I48.2 Chronic atrial fibrillation; M89.751 Major osseous defect, right pelvic region and thigh; E78.2 Mixed hyperlipidemia; I10 Essential (primary) hypertension; J44.9 Chronic obstructive pulmonary disease, unspecified; F41.9 Anxiety disorder, unspecified; K64.9 Unspecified hemorrhoids; F17.210 Nicotine dependence, cigarettes, uncomplicated; K21.9 Gastro-esophageal reflux disease without esophagitis; K74.60 Unspecified cirrhosis of liver; Z79.899 Other long term (current) drug therapy; Z96.651 Presence of right artificial knee joint; Z86.718 Personal history of other venous thrombosis and embolism; Z88.1 Allergy status to other antibiotic agents; Z88.0 Allergy status to penicillin; Z88.2 Allergy status to sulfonamides; Z80.9 Family history of malignant neoplasm, unspecified
CPT/HCPCS: 73501; 85025; 86850; 86900; 86901; 94640

== ENCOUNTER 2018-09-20 16:21 | Emergency (ER) | payer OTHER ==
--- NOTE | 2018-09-20 16:43 | US ---
EXAMINATION TYPE: US venous doppler duplex LE RT DATE OF EXAM: 09/20/2018 4:13 PM COMPARISON: NONE CLINICAL HISTORY: M79.661 Pain, R22.41 Swelling. pain and swelling in right leg 2 weeks post total hi p, h/o dvt in rt leg 2011 SIDE PERFORMED: right TECHNIQUE: The lower extremity deep venous system is examined utilizing real time linear array sonog leatha with graded compression, doppler sonography and color-flow sonography. VESSELS IMAGED: External Iliac Vein (EIV) Common Femoral Vein Deep Femoral Vein Greater Saphenous Vein * Femoral Vein Popliteal Vein Small Saphenous Vein * Proximal Calf Veins (* superficial vessels) DESCRIPTION: Grayscale, color doppler, spectral doppler imaging performed of the deep veins of the lo wer extremities. There is normal flow, compressibility, and vascular waveforms throughout the deep v enous system from the external iliac vein contiguously through the mid popliteal vein. However, the d istalmost popliteal vein and proximal posterior tibial vein show filling defects with only minimal Do ppler flow, consistent with near occlusive thrombus. *Tech impression called to office, referred him to our EC. IMPRESSION: Positive for venous thrombosis of the distal most popliteal vein and proximal posterior tibial vein. This impression was called to the ordering clinician's office, who referred the patient to the [facility] Emergency Department.
[2018-09-20 16:46] VITALS: RESP 18
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
[2018-09-20] MEDS ORDERED: SODIUM CHLORIDE 0.9% 500 ML 500 ML IV ONE (18:30)
[2018-09-20 18:52] LABS: Anisocytosis Slight; Basophils # (A) 0.1 k/uL (0-0.2); Basophils % (A) 1 %; Eosinophils # (A) 0.4 k/uL (0-0.7); Eosinophils % (A) 4 %; HCT 34.7 % (39.0-53.0); HGB 10.7 gm/dL (13.0-17.5); Hypochromasia Marked; Lymphocytes # (A) 1.7 k/uL (1.0-4.8); Lymphocytes % (A) 19 %; MCH 26.9 pg (25.0-35.0); MCV 86.9 fL (80.0-100.0); Mean Platelet Volume 7.6; Monocytes # (A) 0.8 k/uL (0-1.0); Monocytes % (A) 9 %; Neutrophils # (A) 5.8 k/uL (1.3-7.7); Neutrophils % (A) 64 %; Platelet Count 590 k/uL (150-450); Poikilocytosis Slight; RBC 3.99 m/uL (4.30-5.90); RDW 16.7 % (11.5-15.5); WBC 9.1 k/uL (3.8-10.6)
[2018-09-20 19:00] LABS: ALT 25 U/L (21-72); AST 31 U/L (17-59); Albumin 3.8 g/dL (3.5-5.0); Alkaline Phosphatase 98 U/L (38-126); Anion Gap 6 mmol/L; Blood Urea Nitrogen 10 mg/dL (9-20); Calcium 9.8 mg/dL (8.4-10.2); Carbon Dioxide 29 mmol/L (22-30); Chloride 104 mmol/L (98-107); Glucose 92 mg/dL (74-99); Potassium 4.8 mmol/L (3.5-5.1); Sodium 139 mmol/L (137-145); Total Bilirubin 0.4 mg/dL (0.2-1.3)
[2018-09-20 19:07] LABS: INR 0.9 (<1.2); Prothrombin Time 9.7 sec (9.0-12.0)
[2018-09-20 19:16] LABS: Partial Thromboplastin Time 21.9 sec (22.0-30.0)
--- NOTE | 2018-09-20 19:28 | CT ---
EXAMINATION TYPE: CT chest angio for PE with contrast and with 3-D reconstruction renderings DATE OF EXAM: 09/20/2018 COMPARISON: CT 01/04/2018 HISTORY: 2 weeks post op total hip, right leg swelling and redness CT DLP: 479.3 mGycm Automated exposure control for dose reduction was used. CONTRAST: CT Chest for pulmonary embolism performed with with IV Contrast, patient injected with 100 mL of Isovue 370. 3-D reconstructions. FINDINGS: LUNGS/PLEURAL SPACES/AIRWAYS: There is no pulmonary edema or atelectasis or pneumonia. There is redem onstration of the innumerable 1 mm, 2 mm and 3 mm pulmonary calcifications symmetrically in all lobes of the right and left lung. There is no pleural effusion or pneumothorax seen. The tracheobronchial tree is patent. MEDIASTINUM: There is mild/moderate enhancement of the pulmonary artery and its branches, without CT evidence for pulmonary embolism. There is no cardiomegaly or pericardial effusion, but prominent cor onary calcifications noted. No acute aortic findings. No adenopathy. OTHER: Bilateral remote rib fractures noted. IMPRESSION: No acute process.
[2018-09-20 20:16] VITALS: BP 133/80; PULSE 102; TEMP 98
== END 2018-09-20 20:16 | disposition home or self-care (01) ==
LOC: EC 16:21
DX: I82.431 Acute embolism and thrombosis of right popliteal vein (principal); I82.441 Acute embolism and thrombosis of right tibial vein; R00.0 Tachycardia, unspecified; R91.8 Other nonspecific abnormal finding of lung field; R06.2 Wheezing; I48.91 Unspecified atrial fibrillation; J44.9 Chronic obstructive pulmonary disease, unspecified; K21.9 Gastro-esophageal reflux disease without esophagitis; E78.5 Hyperlipidemia, unspecified; M19.90 Unspecified osteoarthritis, unspecified site; F41.9 Anxiety disorder, unspecified; F17.200 Nicotine dependence, unspecified, uncomplicated; Z88.0 Allergy status to penicillin; Z88.1 Allergy status to other antibiotic agents; Z88.2 Allergy status to sulfonamides; Z88.5 Allergy status to narcotic agent; Z79.899 Other long term (current) drug therapy; Z96.641 Presence of right artificial hip joint
CPT/HCPCS: 99284; 96360; 36415; 80053; 85025; 85610; 85730; 93971; 71275; Q9967

== ENCOUNTER 2019-03-04 15:21 | Inpatient (IN) | payer OTHER ==
[2019-03-04] MEDS ORDERED: SODIUM CHLORIDE 0.9% 1,000 ML IV STA (15:46)
[2019-03-04 16:38] LABS: ALT 66 U/L (21-72); AST 60 U/L (17-59); African American GFR (CKD) >90 (>60 ml/min/1.73 sqM); Albumin 3.9 g/dL (3.5-5.0); Alkaline Phosphatase 131 U/L (38-126); Anion Gap 11 mmol/L; Blood Urea Nitrogen 11 mg/dL (9-20); Calcium 9.2 mg/dL (8.4-10.2); Carbon Dioxide 24 mmol/L (22-30); Chloride 100 mmol/L (98-107); Glucose 88 mg/dL (74-99); Magnesium 1.3 mg/dL (1.6-2.3); Potassium 4.9 mmol/L (3.5-5.1); Sodium 135 mmol/L (137-145); Total Bilirubin 0.9 mg/dL (0.2-1.3); Total Protein 7.5 g/dL (6.3-8.2)
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
[2019-03-04 16:43] LABS: Partial Thromboplastin Time 23.5 sec (22.0-30.0); Prothrombin Time 11.1 sec (9.0-12.0)
[2019-03-04 16:55] LABS: Alcohol 109 mg/dL
--- NOTE | 2019-03-04 16:55 | CT ---
EXAMINATION TYPE: CT brain elena faustin DATE OF EXAM: 03/04/2019 COMPARISON: None HISTORY: Syncope w/fall, weakness, anemia. CT DLP: 1723.9 mGycm, Automated exposure control for dose reduction was used. CONTRAST: Patient injected with 0 mL of Isovue 300. CT of the brain is performed utilizing 3 mm thick sections through the posterior fossa and 3 mm thick sections through the remaining calvarium. Study is performed within 24 hours of arrival to the hospital. No abnormal hyperdensity is present to suggest an acute intracranial hemorrhage. No mass lesion is evident. No acute infarcts are evident. Very subtle periventricular white matter hypodensity may be present, likely on the basis of chronic white matter ischemic change. Ventricles and sulci are appropriate for the patient age. There is some minimal mucosal thickening within ethmoid air cells. Remaining paranasal sinuses and ma stoid air cells are clear. IMPRESSIONS: 1. Essentially normal CT brain. Some very subtle periventricular white matter changes may be present. CT cervical spine. COMPARISON: None CT of the cervical spine is performed in the axial plane at 2 mm thick sections. Reconstructed image s in the coronal, and sagittal plane are reviewed on the computer. No acute fractures are evident. There is mild kyphosis through the cervical spine. This can be positional. Disc heights are preserved. Vertebral body heights are preserved. No spinal canal stenosis is evident. No neural foraminal stenosis is evident. IMPRESSIONS: 1. No acute osseous abnormality cervical spine
[2019-03-04 16:59] LABS: Anisocytosis Slight; HCT 26.4 % (39.0-53.0); HGB 7.2 gm/dL (13.0-17.5); Hypochromasia Marked; MCH 21.2 pg (25.0-35.0); MCHC 27.4 g/dL (31.0-37.0); MCV 77.3 fL (80.0-100.0); Mean Platelet Volume 5.9; Microcytosis Slight; Platelet Count 397 k/uL (150-450); Poikilocytosis Slight; RBC 3.41 m/uL (4.30-5.90); RDW 19.3 % (11.5-15.5)
--- NOTE | 2019-03-04 17:11 | CT ---
EXAMINATION TYPE: CT chest abdomen pelvis w con DATE OF EXAM: 03/04/2019 INDICATION: Syncope w/fall, weakness, anemia. COMPARISON: CTA 09/20/2018 CT DLP: 2018.8 mGycm CONTRAST: Performed without Oral Contrast and with IV Contrast, patient injected with 100 mL of Isovue 300. TECHNIQUE: Axial images at 5 mm thick sections. Reconstructed images in the coronal plane. Delayed images through the kidneys. FINDINGS: CT CHEST: Portion of the thyroid visualized is normal. Numerous nodules scattered throughout the bilateral lungs. Majority appear calcified. There are some additional nodules which are noncalcified cannot be classified as a granuloma. Reference lesions include a 0.5 cm posterior left apex peripheral nodule. Series 401 image 15. There is an area of thickening measuring 1.1 cm in the lingula. Series 401 image 47. Multiple small lymph nodes are within the mediastinum. The ascending aorta diameter at the level of the main pulmonary artery is 3.4 cm. The main pulmonary artery diameter at the bifurcation is 3.6 cm. Correlate for pulmonary hypertension. There is mild co ronary artery calcification present. There multiple calcified granuloma within the bilateral lung fie lds CT ABDOMEN: Liver: There is moderate fatty infiltration throughout the liver. No discrete masses are evident. Spleen: Normal Pancreas: Normal Adrenal glands: The adrenal glands are normal. Gallbladder: Normal Kidneys: No masses are evident. No hydronephrosis is present. No cysts are present. Delayed images were obtained through the kidneys, which remain unremarkable. Aorta: Vascular calcification is within the aorta. Inferior vena cava: Normal. CT PELVIS: In the subcutaneous tissues posterior to the lumbar spine there is increased density diffu sely. Swelling and subcutaneous hemorrhage could be considered within the differential. Loops of bowel within the abdomen and pelvis are normal. Studies performed without oral contrast limiting bowel evaluation There is a small amount of free fluid within the pelvis. This is abnormal in a male. This measures ap proximately 8 Hounsfield units more typical for fluid. Hemorrhage is considered less likely. There is a periumbilical fat-containing hernia. Appendix: Normal as visualized. Urinary bladder: Normal. Genitourinary structures: Prostate appears normal Osseous structures: No suspicious lytic or sclerotic lesions. There is a right hip prosthesis. Pelvis appears intact without evidence of fractures. Vertebral body heights are preserved. Alignment appear s normal. There appear to be old nonunion fractures of the right lateral ribs including 6, 7 and 8. Left anteri or and lateral rib fractures are present 5,6,7 old rib fracture of the ninth lateral rib is likely pr esent. Nonunion of the 10th lateral rib is evident IMPRESSIONS: 1. There may be subcutaneous edema or bruising along the posterior subcutaneous tissues at the level lumbar spine. 2. Acute displaced fractures are not identified. There appear to be multiple bilateral nondisplaced i ncompletely union old fractures of the ribs discussed above. No pneumothorax is evident. 3. Extensive punctate calcified granuloma within the bilateral lung moore. There are some nodules wh ich are noncalcified in these cannot be classified as benign. Correlate with the patient's history, t hese were present on the CTA of 09/20/2018. 4. Small amount of free fluid within the pelvis is nonspecific. However, this is considered abnormal in a male. Volume appears low.
[2019-03-04] MEDS ORDERED: DILTIAZEM DRIP BOLUS FROM BAG 1 MG SOLN IV ONE (17:22)
[2019-03-04] MEDS ORDERED: DILTIAZEM 125 MG in SODIUM CHLORIDE 0.9% 100 ML IV SCH ×2 (17:30→18:45)
[2019-03-04 17:33] LABS: Band Neutrophils % 2 %; Eosinophils # (M) 0.14 k/uL (0-0.7); Neutrophils % (M) 63 %; Nucleated Red Blood Cells 3 /100 WBC (0-0); Total Cells Counted 200
[2019-03-04 17:34] LABS: Anisocytosis (M) Present; Hypochromasia (M) Present; Lymphocytes # (M) 1.29 k/uL (1.0-4.8); Monocytes # (M) 1.02 k/uL (0-1.0); Ovalocytes Present; Polychromasia Present; Target Cells Present; Tear Drop Cells Present; WBC 6.8 k/uL (3.8-10.6)
[2019-03-04] MEDS: MAGNESIUM SULFATE-D5W PMX 1 GM in DEXTROSE/WATER 1 100ML.BAG IVPB SCH ×2 (18:14→19:32)
[2019-03-04 18:22] LABS: T4, Free (Free Thyroxine) 0.68 ng/dL (0.78-2.19)
[2019-03-04] MEDS ORDERED: NALOXONE 0.4 MG/ML 1 ML VIAL IV PRN (19:02)
[2019-03-04] MEDS ORDERED: THIAMINE 100 MG/ML 2 ML VIAL IM STA (19:11)
[2019-03-04] MEDS ORDERED: LORazepam 2 MG/ML INJ IV PRN ×3 (19:11)
[2019-03-04] MEDS: SODIUM CHLORIDE 0.9% 1,000 ML IV SCH (19:37)
--- NOTE | 2019-03-04 20:45 | US ---
EXAMINATION TYPE: US venous doppler duplex LE DATE OF EXAM: 03/04/2019 8:34 PM COMPARISON: US Right leg CLINICAL HISTORY: hx DVT, tachycardia. SOB, Swelling, h/o DVT right leg, pt currently not on blood th inners SIDE PERFORMED: Bilateral TECHNIQUE: The lower extremity deep venous system is examined utilizing real time linear array sonog leatha with graded compression, doppler sonography and color-flow sonography. VESSELS IMAGED: External Iliac Vein (EIV) Common Femoral Vein Deep Femoral Vein Greater Saphenous Vein * Femoral Vein Popliteal Vein Small Saphenous Vein * Proximal Calf Veins (* superficial vessels) Right Leg: Negative for acute DVT, probable non-occluding chronic thrombus within right pop veins an d proximal calf veins Left Leg: Negative for DVT, difficult to visualize distal femoral vein due to extensive swelling/mir ma IMPRESSION: 1. There is nonoccluding thrombus within the right lower extremity popliteal vein and proximal calf v eins this appears to correspond to the previous ultrasound dated 09/20/2018. 2. There is limitation on visualization of the left lower extremity venous system due to extensive so ft tissue swelling
[2019-03-04] MEDS: IPRATROPIUM-ALBUTEROL 3 ML NEB INHALATION SCH (21:14)
--- NOTE | 2019-03-04 22:01 | NM ---
EXAMINATION TYPE: NM pul vent and perfuse DATE OF EXAM: 03/04/2019 COMPARISON: NONE HISTORY: Tachycardia history of DVT TECHNIQUE: Utilizing inhalation of 69.6 mCi Tc 99m DTPA aerosol and intravenous injection of 5.1 mCi of Tc 99m MAA, ventilation and perfusion images are acquired post injection in multiple projections. FINDINGS: Some mild central deposition of radiotracer is present on ventilation suggesting some underlying COPD . No suspicious moderate or large mismatched defects are evident. IMPRESSION: Low probability for pulmonary embolism.
[2019-03-04 22:22] VITALS: BMI 31.4
[2019-03-04] MEDS ORDERED: CYCLOBENZAPRINE 10 MG TAB PO PRN (23:04)
[2019-03-04] MEDS: PANTOPRAZOLE 40 MG/10 ML VIAL IVP SCH (23:16)
[2019-03-04] MEDS: GABAPENTIN 400 MG CAP PO SCH (23:16)
[2019-03-04 23:17] LABS: Anisocytosis Slight; HCT 24.8 % (39.0-53.0); Hypochromasia Marked; MCH 21.6 pg (25.0-35.0); MCHC 27.6 g/dL (31.0-37.0); MCV 78.3 fL (80.0-100.0); Mean Platelet Volume 5.8; Microcytosis Slight; Platelet Count 393 k/uL (150-450); Poikilocytosis Slight; RBC 3.17 m/uL (4.30-5.90); RDW 19.3 % (11.5-15.5)
[2019-03-04] MEDS: NICOTINE 21MG/24HR PATCH TRANSDERM SCH (23:17)
[2019-03-04 23:23] LABS: HGB 6.9 gm/dL (13.0-17.5)
[2019-03-05] MEDS: IPRATROPIUM-ALBUTEROL 3 ML NEB INHALATION SCH ×7 (00:31→23:52)
[2019-03-05] MEDS: DILTIAZEM 125 MG in SODIUM CHLORIDE 0.9% 100 ML IV SCH ×2 (01:24→17:34)
[2019-03-05] MEDS: THIAMINE 100 MG TAB PO SCH ×2 (06:19→17:35)
[2019-03-05] MEDS: SODIUM CHLORIDE 0.9% 1,000 ML IV SCH (06:20)
[2019-03-05 08:52] LABS: Anisocytosis Slight; Basophils # (A) 0.1 k/uL (0-0.2); Basophils % (A) 1 %; Eosinophils # (A) 0.1 k/uL (0-0.7); Eosinophils % (A) 2 %; HCT 27.2 % (39.0-53.0); HGB 7.6 gm/dL (13.0-17.5); Hypochromasia Marked; Lymphocytes # (A) 0.9 k/uL (1.0-4.8); Lymphocytes % (A) 13 %; MCH 22.1 pg (25.0-35.0); MCHC 27.8 g/dL (31.0-37.0); MCV 79.5 fL (80.0-100.0); Mean Platelet Volume 6.1; Microcytosis Slight; Monocytes # (A) 0.7 k/uL (0-1.0); Monocytes % (A) 11 %; Neutrophils # (A) 4.7 k/uL (1.3-7.7); Neutrophils % (A) 70 %; Platelet Count 346 k/uL (150-450); Poikilocytosis Moderate; RBC 3.42 m/uL (4.30-5.90); RDW 19.1 % (11.5-15.5); WBC 6.7 k/uL (3.8-10.6)
[2019-03-05 08:54] LABS: African American GFR (CKD) >90 (>60 ml/min/1.73 sqM); Anion Gap 6 mmol/L; Blood Urea Nitrogen 11 mg/dL (9-20); Calcium 8.8 mg/dL (8.4-10.2); Carbon Dioxide 26 mmol/L (22-30); Chloride 103 mmol/L (98-107); Glucose 129 mg/dL (74-99); Sodium 135 mmol/L (137-145)
[2019-03-05 09:04] LABS: Magnesium 1.7 mg/dL (1.6-2.3); Potassium 5.4 mmol/L (3.5-5.1)
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
[2019-03-05] MEDS: ATORVASTATIN 40 MG TAB PO SCH (10:09)
[2019-03-05] MEDS: GABAPENTIN 400 MG CAP PO SCH ×2 (10:09→21:07)
[2019-03-05] MEDS: NICOTINE 21MG/24HR PATCH TRANSDERM SCH (10:10)
[2019-03-05] MEDS: PANTOPRAZOLE 40 MG/10 ML VIAL IVP SCH ×2 (10:10→21:08)
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
[2019-03-05] MEDS: FUROSEMIDE 10 MG/ML 2 ML VIAL IV SCH ×2 (11:40→21:07)
[2019-03-05] MEDS: METOPROLOL TARTRATE 50 MG TAB PO SCH ×2 (11:40→21:07)
[2019-03-05] MEDS: DILTIAZEM CD 240 MG CAP.ER.24H PO SCH (11:48)
--- NOTE | 2019-03-05 12:01 | ECHOF ---
Referral Reason:atrial flutter MEASUREMENTS -------- HEIGHT: 182.9 cm WEIGHT: 110.7 kg BP: IVSd: 0.9 cm (0.6 - 1.1) LVIDd: 5.2 cm (3.9 - 5.3) LVPWd: 0.8 cm (0.6 - 1.1) IVSs: 1.4 cm LVIDs: 3.7 cm LVPWs: 1.5 cm RVIDd: 4.1 cm (< 3.3) LAESV Index (A-L): 33.74 ml/m Ao Diam: 2.5 cm (2.0 - 3.7) LA Diam: 3.4 cm (2.7 - 3.8) AV Cusp: 1.5 cm (1.5 - 2.6) EPSS: 1.2 cm MV E Dorian: 1.52 m/s MV DecT: 218 ms MV A Dorian: 0.60 m/s MV E/A Ratio: 2.54 AR PHT: 597 ms RAP: 5.00 mmHg RVSP: 49.47 mmHg %FS: 29.19 % EDV(Teich): 210.07 ml EF(Teich): 54.91 % ESV(Teich): 94.71 ml IVSd: 0.76 cm (0.6 - 1.1) IVSs: 0.90 cm LVIDd: 6.42 cm (3.9 - 5.3) LVIDs: 4.55 cm LVPWd: 0.69 cm (0.6 - 1.1) LVPWs: 1.63 cm MV EF SLOPE: 62.33 mm/s (70 - 150) MV EXCURSION: 8.68 mm (> 18.000) SV(Teich): 115.36 ml TAPSE: 24.21 mm FINDINGS -------- The rhythm appears to be atrial flutter. This was a technically adequate study. The left ventricular size is normal. Left ventricular wall thickness is normal. Overall left vent ricular systolic function is low-normal with, an EF between 50 - 55 %. The right ventricle is moderately enlarged. LA is moderately dilated 34-39 ml/m2 The right atrial size is normal. Aortic valve is trileaflet and is mildly thickened. There is mild aortic regurgitation. The mitral valve is normal. The mitral valve leaflets are mildly thickened. Moderate mitral regur gitation is present. The tricuspid valve appears structurally normal. [id number] tricuspid regurgitation present. There is moderate pulmonary hypertension. The right ventricular systolic pressure, as measured by Doppler, is 49.47mmHg. There is no pulmonic regurgitation present. The aortic root size is normal. IVC Not well visulized. There is no pericardial effusion. CONCLUSIONS -------- 1. The rhythm appears to be atrial flutter. 2. This was a technically adequate study. 3. The left ventricular size is normal. 4. Left ventricular wall thickness is normal. 5. Overall left ventricular systolic function is low-normal with, an EF between 50 - 55 %. 6. The right ventricle is moderately enlarged. 7. LA is moderately dilated 34-39 ml/m2 8. The right atrial size is normal. 9. Aortic valve is trileaflet and is mildly thickened. 10. There is mild aortic regurgitation. 11. The mitral valve is normal. 12. The mitral valve leaflets are mildly thickened. 13. Moderate mitral regurgitation is present. 14. The tricuspid valve appears structurally normal. 15. [id number] tricuspid regurgitation present. 16. There is moderate pulmonary hypertension. 17. The right ventricular systolic pressure, as measured by Doppler, is 49.47mmHg. 18. There is no pulmonic regurgitation present. 19. The aortic root size is normal. 20. IVC Not well visulized. 21. There is no pericardial effusion. [employer] PRINTER: Lizett Arreaga RDCS
[2019-03-05 16:27] LABS: Anisocytosis Slight; HCT 27.9 % (39.0-53.0); HGB 7.8 gm/dL (13.0-17.5); Hypochromasia Marked; MCH 22.4 pg (25.0-35.0); MCV 80.1 fL (80.0-100.0); Mean Platelet Volume 6.4; Microcytosis Slight; Platelet Count 437 k/uL (150-450); Poikilocytosis Moderate; RBC 3.49 m/uL (4.30-5.90); WBC 7.8 k/uL (3.8-10.6)
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
[2019-03-05] MEDS: HEPARIN SODIUM,PORCINE 5,000 UNIT/ML 1 ML VIAL SQ SCH ×2 (17:35→23:39)
[2019-03-05] MEDS: BUDESONIDE 0.5 MG/2 ML NEBU INHALATION SCH (20:40)
[2019-03-06 01:50] LABS: % Iron Saturation 4.28 (15.00-50.00)
[2019-03-06] MEDS: IPRATROPIUM-ALBUTEROL 3 ML NEB INHALATION SCH ×6 (04:17→23:07)
[2019-03-06] MEDS: THIAMINE 100 MG TAB PO SCH ×2 (06:07→17:26)
[2019-03-06 06:22] LABS: Anisocytosis Slight; HCT 26.3 % (39.0-53.0); HGB 7.3 gm/dL (13.0-17.5); Hypochromasia Marked; MCH 22.3 pg (25.0-35.0); MCHC 27.8 g/dL (31.0-37.0); MCV 80.3 fL (80.0-100.0); Mean Platelet Volume 6.3; Microcytosis Slight; Platelet Count 376 k/uL (150-450); Poikilocytosis Moderate; RBC 3.27 m/uL (4.30-5.90); RDW 18.8 % (11.5-15.5)
[2019-03-06 06:34] LABS: African American GFR (CKD) >90 (>60 ml/min/1.73 sqM); Anion Gap 4 mmol/L; Blood Urea Nitrogen 15 mg/dL (9-20); Calcium 9.1 mg/dL (8.4-10.2); Carbon Dioxide 30 mmol/L (22-30); Chloride 102 mmol/L (98-107); Glucose 81 mg/dL (74-99); Potassium 4.5 mmol/L (3.5-5.1); Sodium 136 mmol/L (137-145)
[2019-03-06] MEDS: BUDESONIDE 0.5 MG/2 ML NEBU INHALATION SCH ×2 (08:07→19:08)
[2019-03-06] MEDS: NICOTINE 21MG/24HR PATCH TRANSDERM SCH (08:39)
[2019-03-06] MEDS: PANTOPRAZOLE 40 MG/10 ML VIAL IVP SCH (08:39)
[2019-03-06] MEDS: FUROSEMIDE 10 MG/ML 2 ML VIAL IV SCH (08:40)
[2019-03-06] MEDS: HEPARIN SODIUM,PORCINE 5,000 UNIT/ML 1 ML VIAL SQ SCH ×3 (08:42→20:58)
[2019-03-06] MEDS: GABAPENTIN 400 MG CAP PO SCH ×2 (08:43→20:58)
[2019-03-06] MEDS: DILTIAZEM CD 240 MG CAP.ER.24H PO SCH (08:43)
[2019-03-06] MEDS: METOPROLOL TARTRATE 50 MG TAB PO SCH ×2 (08:43→20:58)
[2019-03-06] MEDS: ATORVASTATIN 40 MG TAB PO SCH (08:43)
--- NOTE | 2019-03-06 08:51 | P.PN ---
Subjective Progress Note Date: 03/06/19 Principal diagnosis: Paroxysmal atrial fibrillation This is a pleasant 53-year-old gentleman with a past medical history significant for paroxysmal atrial fibrillation, chronic anemia, alcohol use, and history of smoking, was admitted to the hospital with generalized weakness and was found to be severe lead anemic as well as in atrial flutter with RVR. On follow-up with him today, he is feeling overall better. The hemoglobin continues to be about 7. He received one unit of packed RBC. He continues to be in atrial flutter with controlled heart rate. The blood pressure has been marginally low but it above 90 mmHg. He is not a candidate to receive oral anticoagulation at this point until we rule out any GI bleeding. The echo revealed normal LV function with mild valvular abnormalities. Objective - Vital Signs Vital signs: Vital Signs Temp 97.7 F 03/06/19 04:00 Pulse 88 03/06/19 08:24 Resp 20 03/06/19 04:00 BP 98/61 03/06/19 04:00 Pulse Ox 96 03/06/19 04:00 Intake & Output 03/05/19 03/06/19 03/06/19 18:59 06:59 18:59 Intake Total 1118 240 240 Output Total 400 200 Balance 718 40 240 Weight 113.1 kg Intake: Oral 1118 240 240 Output: Urine 400 200 Other: Voiding Method Urinal Toilet Urinal # Voids 2 - Constitutional General appearance: Present: no acute distress - Respiratory Respiratory: bilateral: diminished - Cardiovascular Rhythm: irregularly irregular Heart sounds: normal: S1, S2 - Labs CBC & Chem 7: 03/06/19 05:36 03/06/19 05:36 Labs: Abnormal Lab Results - Last 24 Hours (Table) 03/05/19 03/05/19 03/05/19 Range/Units 08:06 08:06 16:07 RBC 3.42 L 3.49 L (4.30-5.90) m/uL Hgb 7.6 L 7.8 L (13.0-17.5) gm/dL Hct 27.2 L 27.9 L (39.0-53.0) % MCV 79.5 L (80.0-100.0) fL MCH 22.1 L 22.4 L (25.0-35.0) pg MCHC 27.8 L 28.0 L (31.0-37.0) g/dL RDW 19.1 H 19.0 H (11.5-15.5) % Lymphocytes # 0.9 L (1.0-4.8) k/uL Sodium 135 L (137-145) mmol/L Potassium 5.4 H (3.5-5.1) mmol/L Glucose 129 H (74-99) mg/dL Iron (65-175) ug/dL % Saturation (15.00-50.00) 03/05/19 03/06/19 03/06/19 Range/Units 16:07 05:36 05:36 RBC 3.27 L (4.30-5.90) m/uL Hgb 7.3 L (13.0-17.5) gm/dL Hct 26.3 L (39.0-53.0) % MCV (80.0-100.0) fL MCH 22.3 L (25.0-35.0) pg MCHC 27.8 L (31.0-37.0) g/dL RDW 18.8 H (11.5-15.5) % Lymphocytes # (1.0-4.8) k/uL Sodium 136 L (137-145) mmol/L Potassium (3.5-5.1) mmol/L Glucose (74-99) mg/dL Iron 17 L (65-175) ug/dL % Saturation 4.28 L (15.00-50.00) Assessment and Plan Assessment: Assessment #1 atrial flutter was controlled heart rate #2 anemia of unknown etiology at this point #3 history of alcohol abuse #4 history of smoking #5 multiple comorbid conditions Plan #1 continue the current medical regimen #2 the echo was reviewed and showed normal LV function #3 follow-up with the patient
--- NOTE | 2019-03-06 10:19 | P.PN ---
Subjective 51-year-old male was admitted for new-onset atrial flutter and fibrillation, patient may have had persistent A. fib. Patient is rate controlled at this time patient is on now Cardizem and lower metoprolol. Patient blood pressure is low may be probably we need to increase his metoprolol and Discontinue Cardizem as his blood pressure is low. Patient is on Lasix for pedal edema and ascites, we'll switch the Lasix to oral because of his low blood pressure patient still has some edema in the legs which improved compared to yesterday continues to have significant ascites from cirrhosis alcoholic. Patient can use to drink alcohol is not having any withdrawals patient is on alcohol withdrawal protocol at this time. Patient has multiple other medical issues including that clot in the leg which is recent but it's nonocclusive and patient had a recent GI bleed and severely anemic because of which the patient was not started on any anti-correlation patient had DVT years ago. Hematology evaluate the patient. Patient doesn't have any signs or symptoms of acute GI bleed there is no benefit in consulting gastroenterology here in the hospital gastroenterology consultation will be discontinued. But patient will benefit from follow-up as an outpatient. Patient's ferritin level is extremely low and patient will be given a IV iron supplementation and patient will need oral iron supplementation. His anemia is multifactorial including alcoholism and iron deficiency anemia. Patient is feeling much better still remains on 3 L of oxygen will obtain PT and OT consultation patient does have COPD wheezing improved patient may end up needing oxygen upon discharge and we may need placement to subacute rehabilitation. Constitutional: Denied any fatigue denied any fever. Cardio vascular: denied any chest pain, palpitations Gastrointestinal denied any nausea vomiting Pulmonary: Denied any shortness of breath cough Neurologic denied any new focal deficits All inpatient medications were reviewed and appropriate changes in these medications as dictated in the interval history and assessment and plan. Objective - Vital Signs Vital signs: Vital Signs Temp 96.9 F L 03/06/19 08:30 Pulse 73 03/06/19 08:30 Resp 18 03/06/19 08:30 BP 98/54 03/06/19 08:30 Pulse Ox 99 03/06/19 08:30 Intake & Output 03/05/19 03/06/19 03/06/19 18:59 06:59 18:59 Intake Total 1118 240 240 Output Total 400 200 300 Balance 718 40 -60 Weight 113.1 kg Intake: Oral 1118 240 240 Output: Urine 400 200 300 Other: Voiding Method Urinal Toilet Urinal # Voids 2 1 # Bowel Movements 0 - Exam PHYSICAL EXAMINATION: GENERAL: The patient is alert and oriented x3, not in any acute distress. Well developed, well nourished. HEENT: Pupils are round and equally reacting to light. EOMI. No scleral icterus. No conjunctival pallor. Normocephalic, atraumatic. No pharyngeal erythema. No th yromegaly. CARDIOVASCULAR: S1 and S2 present. No murmurs, rubs, or gallops. Tachycardic regular rhythm no JVD PULMONARY: Wheezing improved compared to yesterday still has some wheeze ABDOMEN: Soft, nontender, distended with positive sift shifting dullness, normoactive bowel sounds. No palpable organomegaly. MUSCULOSKELETAL: No joint swelling or deformity. EXTREMITIES: No cyanosis, clubbing, extensive bilateral non- pitting pedal edema which improved NEUROLOGICAL: Gross neurological examination did not reveal any focal deficits. SKIN: No rashes. - Labs CBC & Chem 7: 03/06/19 05:36 03/06/19 05:36 Labs: Abnormal Lab Results - Last 24 Hours (Table) 03/05/19 03/05/19 03/06/19 Range/Units 16:07 16:07 05:36 RBC 3.49 L (4.30-5.90) m/uL Hgb 7.8 L (13.0-17.5) gm/dL Hct 27.9 L (39.0-53.0) % MCH 22.4 L (25.0-35.0) pg MCHC 28.0 L (31.0-37.0) g/dL RDW 19.0 H (11.5-15.5) % Sodium 136 L (137-145) mmol/L Iron 17 L (65-175) ug/dL % Saturation 4.28 L (15.00-50.00) 03/06/19 Range/Units 05:36 RBC 3.27 L (4.30-5.90) m/uL Hgb 7.3 L (13.0-17.5) gm/dL Hct 26.3 L (39.0-53.0) % MCH 22.3 L (25.0-35.0) pg MCHC 27.8 L (31.0-37.0) g/dL RDW 18.8 H (11.5-15.5) % Sodium (137-145) mmol/L Iron (65-175) ug/dL % Saturation (15.00-50.00) Assessment and Plan Plan: -Anemia without any signs or symptoms of acute blood loss patient had a recent blood loss contributed to an deficiency and may have combined iron deficiency and B12 folate deficiency as well because of his low MCV a lot of B12 and folate as well as ferritin levels. Peripheral levels are extremely low IV and transfusion as mentioned above -Atrial flutter with rapid ventricular rate: Presently rate controlled still in A. fib patient is on oral Cardizem and the metoprolol. -COPD: With mild acute exacerbation patient was started on inhaled steroids and inhalational treatments. Improving -Probably alcoholic cirrhosis leading to volume overload and pedal edema along with ascites patient will be switched to oral Lasix because of her low blood pressure still volume overloaded -Recent light lower limb DVT not on anticoagulation as patient thrombosis nonocclusive didn't have a PE patient had a recent GI bleed chest on aspirin -Recent right hip replacement complicated by right lower limb DVT. -Alcohol withdrawal: Patient had history of withdrawal in the past and drinks about 4-5 beers a day does have alcoholic cirrhosis patient was counseled regarding this and the patient will be on alcohol withdrawal protocol with Ativan. No withdrawal so far patient is severely deconditioned. OT consultat ion -Nicotine abuse: Counseling was provided -Hyperkalemia secondary to hemolysis -Mild hyponatremia probably hypovolemic hyponatremia from cirrhosis expected to improve with Lasix -Hyperlipidemia -DVT prophylaxis with subcutaneous heparin 3 times a day
[2019-03-06] MEDS: SODIUM FERRIC GLUCONAT-SUCROSE 125 MG in SODIUM CHLORIDE 0.9% 100 ML IVPB SCH (10:22)
--- NOTE | 2019-03-06 11:38 | P.PN ---
Subjective Progress Note Date: 03/06/19 Principal diagnosis: Iron deficient anemia, non-occlusive RLE DVT In f/u today pt has c/o cough, no hemoptysis or bleeding to report, his legs bother him because they are "tight", tolerating diet, no acute pain to report. Objective - Vital Signs Vital signs: Vital Signs Temp 96.9 F L 03/06/19 08:30 Pulse 73 03/06/19 08:30 Resp 18 03/06/19 08:30 BP 98/54 03/06/19 08:30 Pulse Ox 99 03/06/19 08:30 Intake & Output 03/05/19 03/06/19 03/06/19 18:59 06:59 18:59 Intake Total 1118 240 240 Output Total 400 200 300 Balance 718 40 -60 Weight 113.1 kg Intake: Oral 1118 240 240 Output: Urine 400 200 300 Other: Voiding Method Urinal Toilet Urinal # Voids 2 1 # Bowel Movements 0 - Constitutional General appearance: Present: average body habitus, cooperative, no acute distress - EENT Eyes: Present: anicteric sclerae, EOMI, poor dentition ENT: Present: hearing grossly normal - Respiratory Respiratory: bilateral: rhonchi (expiratory) - Cardiovascular Heart sounds: normal: S1, S2 - Peripheral edema leg Peripheral Edema: bilateral: 2+, Pitting - Gastrointestinal General gastrointestinal: Present: distended, normal bowel sounds, soft - Neurologic Neurologic: Present: CNII-XII intact - Musculoskeletal Musculoskeletal: Present: strength equal bilaterally - Psychiatric Psychiatric: Present: A&O x's 3, appropriate affect, intact judgment & insight - Labs CBC & Chem 7: 03/06/19 05:36 03/06/19 05:36 Labs: Abnormal Lab Results - Last 24 Hours (Table) 03/05/19 03/05/19 03/06/19 Range/Units 16:07 16:07 05:36 RBC 3.49 L (4.30-5.90) m/uL Hgb 7.8 L (13.0-17.5) gm/dL Hct 27.9 L (39.0-53.0) % MCH 22.4 L (25.0-35.0) pg MCHC 28.0 L (31.0-37.0) g/dL RDW 19.0 H (11.5-15.5) % Sodium 136 L (137-145) mmol/L Iron 17 L (65-175) ug/dL % Saturation 4.28 L (15.00-50.00) 03/06/19 Range/Units 05:36 RBC 3.27 L (4.30-5.90) m/uL Hgb 7.3 L (13.0-17.5) gm/dL Hct 26.3 L (39.0-53.0) % MCH 22.3 L (25.0-35.0) pg MCHC 27.8 L (31.0-37.0) g/dL RDW 18.8 H (11.5-15.5) % Sodium (137-145) mmol/L Iron (65-175) ug/dL % Saturation (15.00-50.00) Assessment and Plan (1) Microcytic hypochromic anemia Narrative/Plan: Suspect acute blood loss and, to a degree, chronic as well. EtOH abuse-likely poor oral intake and marrow damage. Anemia workup showing iron deficiency, parenteral iron was ordered. Patient states a history and EGD and colonoscopy, we will attempt to find these reports. GI consulted, may need new endoscopy to evaluate for varices. Current Visit: Yes Status: Acute Priority: Medium Code(s): D50.9 - IRON DEFICIENCY ANEMIA, UNSPECIFIED SNOMED Code(s): 38052292 (2) DVT (deep venous thrombosis) Narrative/Plan: Most recent Doppler of the right lower extremity reporting chronic blood clot, nonocclusive. Patient has a remote history of blood clot in right lower extremity status post thrombectomy and anticoagulation for nearly 5-1/2 years. Back in August 2018, status post right hip replacement, patient was found to have RLE popliteal/proximal calf vein thrombus. Pt states today the he WAS prescribed anticoagulation back in August, then HE stopped it and started 81 asa then stopped that due to BRBPR. Pt has a brother recently diagnosed with PE, unsure of the circumstances. Due to acute bleeding and recent bleeding on asa no anticoagulation can be recommended at this time. Current circumstances (lower leg DVT, no PE) IVC filter not suggested at this time. GI work up to see if there is a correctable source of bleeding. Hypercoaguable work up outpt. Current Visit: Yes Status: Acute Priority: Medium Code(s): I82.409 - ACUTE EMBOLISM AND THOMBOS UNSP DEEP VN UNSP LOWER EXTREMITY SNOMED Code(s): 915825386
[2019-03-06 11:52] LABS: Ferritin 23.3 ng/mL (22.0-322.0)
[2019-03-06] MEDS: FUROSEMIDE 20 MG TAB PO SCH (15:15)
[2019-03-06] MEDS: PANTOPRAZOLE 40 MG TABLET PO SCH (17:26)
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
[2019-03-07] MEDS: IPRATROPIUM-ALBUTEROL 3 ML NEB INHALATION SCH ×3 (03:29→12:01)
[2019-03-07] MEDS: PANTOPRAZOLE 40 MG TABLET PO SCH (05:11)
[2019-03-07] MEDS: THIAMINE 100 MG TAB PO SCH (05:11)
[2019-03-07 06:32] LABS: Calcium 9.1 mg/dL (8.4-10.2); Potassium 4.6 mmol/L (3.5-5.1)
[2019-03-07 07:36] VITALS: BP 97/54; RESP 18; TEMP 98
[2019-03-07] MEDS: HEPARIN SODIUM,PORCINE 5,000 UNIT/ML 1 ML VIAL SQ SCH (07:37)
[2019-03-07] MEDS: GABAPENTIN 400 MG CAP PO SCH (07:38)
[2019-03-07] MEDS: DILTIAZEM CD 240 MG CAP.ER.24H PO SCH (07:38)
[2019-03-07] MEDS: METOPROLOL TARTRATE 50 MG TAB PO SCH (07:38)
[2019-03-07] MEDS: FUROSEMIDE 20 MG TAB PO SCH (07:38)
[2019-03-07] MEDS: NICOTINE 21MG/24HR PATCH TRANSDERM SCH (07:38)
[2019-03-07] MEDS: ATORVASTATIN 40 MG TAB PO SCH (07:38)
[2019-03-07 07:56] LABS: Methylmalonic Acid 0.37 umol/L (<0.40)
[2019-03-07 08:31] LABS: Anisocytosis Slight; HCT 25.5 % (39.0-53.0); HGB 7.1 gm/dL (13.0-17.5); Hypochromasia Marked; MCH 21.8 pg (25.0-35.0); MCHC 27.7 g/dL (31.0-37.0); Mean Platelet Volume 6.9; Microcytosis Slight; Platelet Count 379 k/uL (150-450); Poikilocytosis Moderate; RBC 3.23 m/uL (4.30-5.90); WBC 6.9 k/uL (3.8-10.6)
[2019-03-07] MEDS: BUDESONIDE 0.5 MG/2 ML NEBU INHALATION SCH (08:35)
[2019-03-07 08:52] VITALS: PULSE 76
[2019-03-07 08:52] LABS: Basophils # (M) 0.07 k/uL (0-0.2); Eosinophils # (M) 0.55 k/uL (0-0.7); Lymphocytes # (M) 1.38 k/uL (1.0-4.8); Monocytes # (M) 0.41 k/uL (0-1.0); Neutrophils % (M) 65 %; Nucleated Red Blood Cells 0 /100 WBC (0-0); Total Cells Counted 100
[2019-03-07 08:53] LABS: Polychromasia Present
[2019-03-07] MEDS: SODIUM FERRIC GLUCONAT-SUCROSE 125 MG in SODIUM CHLORIDE 0.9% 100 ML IVPB SCH (10:00)
--- NOTE | 2019-03-07 10:11 | P.PN ---
Subjective Progress Note Date: 03/07/19 Principal diagnosis: Iron deficient anemia, non-occlusive RLE DVT needing anticoagulation, Hx of BRBPR In f/u today pt cough is better, no hemoptysis or bleeding to report, his legs are less "tight" today, tolerating diet, no acute pain to report. Objective - Vital Signs Vital signs: Vital Signs Temp 98.0 F 03/07/19 07:35 Pulse 76 03/07/19 08:52 Resp 18 03/07/19 08:00 BP 97/54 03/07/19 07:35 Pulse Ox 90 L 03/07/19 07:35 Intake & Output 03/06/19 03/07/19 03/07/19 18:59 06:59 18:59 Intake Total 562 Output Total 300 200 Balance 262 -200 Weight 114.2 kg Intake: Intake, IV Titration 100 Amount Sodium Ferric Gluconat- 100 Sucrose 125 mg In Sodium Chloride 0.9% 100 ml @ 100 mls/hr IVPB DAILY [facility] Rx#:[id number] Oral 462 Output: Urine 300 200 Other: Voiding Method Toilet Urinal # Voids 1 1 1 # Bowel Movements 0 - Constitutional General appearance: Present: average body habitus, cooperative, no acute distress - EENT Eyes: Present: anicteric sclerae, EOMI - Respiratory Respiratory: bilateral: diminished, wheezing - Cardiovascular Heart sounds: normal: S1, S2 - Peripheral edema leg Peripheral Edema: right: 1+, left: Trace - Gastrointestinal General gastrointestinal: Present: distended, soft - Neurologic Neurologic Comment(s): generalized upper extremity tremor Neurologic: Present: CNII-XII intact - Musculoskeletal Musculoskeletal: Present: strength equal bilaterally - Psychiatric Psychiatric: Present: A&O x's 3, appropriate affect, intact judgment & insight - Labs CBC & Chem 7: 03/07/19 05:29 03/07/19 05:29 Labs: Abnormal Lab Results - Last 24 Hours (Table) 03/05/19 03/07/19 Range/Units 16:07 05:29 RBC 3.23 L (4.30-5.90) m/uL Hgb 7.1 L (13.0-17.5) gm/dL Hct 25.5 L (39.0-53.0) % MCV 79.0 L (80.0-100.0) fL MCH 21.8 L (25.0-35.0) pg MCHC 27.7 L (31.0-37.0) g/dL RDW 20.0 H (11.5-15.5) % RBC Folate 1,169 H (280 - 791) ng/mL Assessment and Plan (1) Microcytic hypochromic anemia Narrative/Plan: Suspect acute blood loss and, to a degree, chronic as well. EtOH abuse-likely poor oral intake and marrow damage. Anemia workup showing iron deficiency, parenteral iron was ordered. GI consulted, with plans for endoscopy Current Visit: Yes Status: Acute Priority: Medium Code(s): D50.9 - IRON DEFICIENCY ANEMIA, UNSPECIFIED SNOMED Code(s): 96875090 (2) DVT (deep venous thrombosis) Narrative/Plan: Most recent Doppler of the right lower extremity reporting chronic blood clot, nonocclusive. Patient has a remote history of blood clot in right lower extremity status post thrombectomy and anticoagulation for nearly 5-1/2 years. Back in August 2018, status post right hip replacement, patient was found to have RLE popliteal/proximal calf vein thrombus. Pt states today the he WAS prescribed anticoagulation back in August, then HE stopped it and started 81 asa, then stopped that due to BRBPR. Pt has a brother recently diagnosed with PE, unsure of the circumstances. Dr. Rubio has reviewed case and due to acute bleeding and recent bleeding on asa no anticoagulation can be safely be recommended at this time. Current circumstances (lower leg DVT, no PE) IVC filter not suggested at this time. He agrees with GI work up to see if there is a correctable source of bleeding. If correctable source found then trial of anticoagulation will be considered with close monitoring of Hgb and for bleeding. If stable on anticoagulation, would continue for 3-6 months then recheck doppler prior to considering discontinuation. Hypercoaguable work up is planned outpt. Current Visit: Yes Status: Acute Priority: Medium Code(s): I82.409 - ACUTE EMBOLISM AND THOMBOS UNSP DEEP VN UNSP LOWER EXTREMITY SNOMED Code(s): 751937954 Plan: Doctor attests: I performed a history and physical examination of this patient, developed impression and plan of care, discussed with dictator. I agree with dictators note, documented as a scribe.
--- NOTE | 2019-03-07 10:29 | P.PN ---
Subjective Progress Note Date: 03/07/19 Principal diagnosis: Paroxysmal atrial fibrillation This is a pleasant 53-year-old gentleman with a past medical history significant for paroxysmal atrial fibrillation, chronic anemia, alcohol use, and history of smoking, was admitted to the hospital with generalized weakness and was found to be severe lead anemic as well as in atrial flutter with RVR. The patient was seen today March 072018, overall he is feeling better. He remains in atrial flutter was controlled heart rate. We are holding all kind of anticoagulation on him regarding the atrial fibrillation because of possible GI bleeding and anemia. Hemoglobin this morning is 7.1. The echo showed normal FUNCTION without any significant valvular abnormalities. He scheduled to undergo an upper and lower endoscopy tomorrow morning. Objective - Vital Signs Vital signs: Vital Signs Temp 98.0 F 03/07/19 07:35 Pulse 76 03/07/19 08:52 Resp 18 03/07/19 08:00 BP 97/54 03/07/19 07:35 Pulse Ox 90 L 03/07/19 07:35 Intake & Output 03/06/19 03/07/19 03/07/19 18:59 06:59 18:59 Intake Total 562 Output Total 300 200 Balance 262 -200 Weight 114.2 kg Intake: Intake, IV Titration 100 Amount Sodium Ferric Gluconat- 100 Sucrose 125 mg In Sodium Chloride 0.9% 100 ml @ 100 mls/hr IVPB DAILY [facility] Rx#:[id number] Oral 462 Output: Urine 300 200 Other: Voiding Method Toilet Urinal # Voids 1 1 1 # Bowel Movements 0 - Constitutional General appearance: Present: no acute distress - Respiratory Respiratory: bilateral: diminished - Cardiovascular Rhythm: regular Heart sounds: normal: S1, S2 - Labs CBC & Chem 7: 03/07/19 05:29 03/07/19 05:29 Labs: Abnormal Lab Results - Last 24 Hours (Table) 03/05/19 03/07/19 Range/Units 16:07 05:29 RBC 3.23 L (4.30-5.90) m/uL Hgb 7.1 L (13.0-17.5) gm/dL Hct 25.5 L (39.0-53.0) % MCV 79.0 L (80.0-100.0) fL MCH 21.8 L (25.0-35.0) pg MCHC 27.7 L (31.0-37.0) g/dL RDW 20.0 H (11.5-15.5) % RBC Folate 1,169 H (280 - 791) ng/mL Assessment and Plan Assessment: Assessment #1 atrial flutter was controlled heart rate #2 anemia of unknown etiology at this point #3 history of alcohol abuse #4 history of smoking #5 multiple comorbid conditions Plan #1 continue the current medical regimen #2 the echo was reviewed and showed normal LV function #3 follow-up with the patient. He is going to have an upper and lower endoscopy.
--- NOTE | 2019-03-07 10:51 | P.DS ---
Providers Date of admission: 03/04/19 19:07 Attending physician: Domingo Sosa MD Consults: 03/04/19 19:03 Consult Physician Urgent Consulting Provider: [facility] Consult Reason/Comments: aflutter with rvr Do you want consulting provider notified?: Yes 03/05/19 10:06 Consult Physician Routine Consulting Provider: Baltazar Rubio Consult Reason/Comments: anemia, dvt Do you want consulting provider notified?: Yes 03/05/19 16:20 Consult Physician Routine Consulting Provider: Jamin Dias Consult Reason/Comments: iron deficient anemia, ? bleeding varices Do you want consulting provider notified?: Yes, Notify in am Primary care physician[facility] Course: 51-year-old male was admitted for new-onset atrial flutter and fibrillation, patient may have had persistent A. fib. Patient is rate controlled at this time patient is on now Cardizem and lower metoprolol. Patient blood pressure is low may be probably we need to increase his metoprolol and Discontinue Cardizem as his blood pressure is low. Patient is on Lasix for pedal edema and ascites, we'll switch the Lasix to oral because of his low blood pressure patient still has some edema in the legs which improved compared to yesterday continues to have significant ascites from cirrhosis alcoholic. Patient can use to drink alcohol is not having any withdrawals patient is on alcohol withdrawal protocol at this time. Patient has multiple other medical issues including that clot in the leg which is recent but it's nonocclusive and patient had a recent GI bleed and severely anemic because of which the patient was not started on any anti- correlation patient had DVT years ago. Hematology evaluate the patient. Patient doesn't have any signs or symptoms of acute GI bleed there is no benefit in consulting gastroenterology here in the hospital gastroenterology consultation will be discontinued. But patient will benefit from follow-up as an outpatient. Patient's ferritin level is extremely low and patient will be given a IV iron supplementation and patient will need oral iron supplementation. His anemia is multifactorial including alcoholism and iron deficiency anemia. Patient is feeling much better still remains on 3 L of oxygen will obtain PT and OT consultation patient does have COPD wheezing improved patient may end up needing oxygen upon discharge and we may need placement to subacute rehabilitation. 03/07/2019 Patient is still wheezing a little bit collaborated the patient. Patient is saturating okay without oxygen patient will be discharged today as patient was started on oral steroids and will monitor him 1 more night and possibility of discharge tomorrow. Patient heart rate is well controlled will resume his home dose of Cardizem discontinue the Cardizem here continue with metoprolol. Patient will be discharged on 1 mg twice a day I do not believe patient will need inpatient GI endoscopy and this is not warranted here that is there is no evidence of acute GI bleed clinically patient will not be started on any anti- correlation PHYSICAL EXAMINATION: GENERAL: The patient is alert and oriented x3, not in any acute distress. Well developed, well nourished. HEENT: Pupils are round and equally reacting to light. EOMI. No scleral icterus. No conjunctival pallor. Normocephalic, atraumatic. No pharyngeal erythema. No thyromegaly. CARDIOVASCULAR: S1 and S2 present. No murmurs, rubs, or gallops. Tachycardic regular rhythm no JVD PULMONARY: Wheezing improved compared to yesterday still has some wheeze ABDOMEN: Soft, nontender, distended with positive sift shifting dullness, normoactive bowel sounds. No palpable organomegaly. MUSCULOSKELETAL: No joint swelling or deformity. EXTREMITIES: No cyanosis, clubbing, extensive bilateral non- pitting pedal edema which improved NEUROLOGICAL: Gross neurological examination did not reveal any focal deficits. SKIN: No rashes. Assessment and Plan Plan: -Anemia without any signs or symptoms of acute blood loss patient had a recent blood loss contributed to an deficiency and may have combined iron deficiency , B12 levels are within normal limits patient has severe and deficiency anemia -Atrial flutter with rapid ventricular rate: Presently rate controlled still in A. fib patient is on oral Cardizem and the metoprolol. -COPD: With mild acute exacerbation patient was started on inhaled steroids and inhalational treatments. Improving patient will be discharged on weaning dose of steroids -Probably alcoholic cirrhosis leading to volume overload and pedal edema along with ascites patient will be switched to oral Lasix because of her low blood pressure still volume overloaded -Recent light lower limb DVT not on anticoagulation as patient thrombosis nonocclusive didn't have a PE patient had a recent GI bleed chest on aspirin -Recent right hip replacement complicated by right lower limb DVT. -Alcohol withdrawal: Patient had history of withdrawal in the past and drinks about 4-5 beers a day does have alcoholic cirrhosis patient was counseled regarding this and the patient will be on alcohol withdrawal protocol with Ativan. No withdrawal so far patient is severely deconditioned. OT consultation -Nicotine abuse: Counseling was provided -Hyperkalemia secondary to hemolysis -Mild hyponatremia probably hypovolemic hyponatremia from cirrhosis expected to improve with Lasix -Hyperlipidemia -DVT prophylaxis with subcutaneous heparin 3 times a day Patient Condition at Discharge: Serious Plan - Discharge Summary Discharge Rx Participant: No New Discharge Prescriptions: New Furosemide [Lasix] 20 mg PO BID@0900,1600 #60 tab predniSONE 10 mg PO DAILY #30 tab Budesonide-Formot 160-4.5 Mcg [Symbicort 160-4.5 Mcg Inhaler] 2 puff INHALATION BID #1 inhaler Thiamine [Vitamin B-1] 100 mg PO BID-W/MEALS #30 tab Tiotropium [place] [Spiriva] 1 cap INHALATION DAILY #1 device Albuterol Inhaler [Ventolin Hfa Inhaler] 1 - 2 puff INHALATION Q6HR PRN #1 inhaler PRN Reason: Shortness Of Breath Or Wheezing Metoprolol Tartrate [Lopressor] 50 mg PO BID #60 tab Ferrous Sulfate [Feosol] 325 mg PO BID #60 tab Continue hydrOXYzine PAMOATE [Vistaril] 25 mg PO QAM Gabapentin 1,200 mg PO BID Cyclobenzaprine [Flexeril] 10 mg PO BID Ipratropium [place] [Atrovent Hfa] 2 puff INHALATION RT-Q6H PRN PRN Reason: Shortness Of Breath Diltiazem HCl [Diltiazem 24Hr CD] 120 mg PO HS Omeprazole [PriLOSEC] 20 mg PO AC-BID Atorvastatin [Lipitor] 40 mg PO DAILY hydrOXYzine PAMOATE [Vistaril] 50 mg PO HS Calcium Carbonate [Calcium] 600 mg PO DAILY Discharge Medication List Cyclobenzaprine [Flexeril] 10 mg PO BID 09/04/13 [History] Gabapentin 1,200 mg PO BID 09/04/13 [History] Ipratropium [place] [Atrovent Hfa] 2 puff INHALATION RT-Q6H PRN 09/04/13 [History] hydrOXYzine PAMOATE [Vistaril] 25 mg PO QAM 09/04/13 [History] Diltiazem HCl [Diltiazem 24Hr CD] 120 mg PO HS 10/17/17 [History] Atorvastatin [Lipitor] 40 mg PO DAILY 10/18/17 [History] Omeprazole [PriLOSEC] 20 mg PO AC-BID 10/18/17 [History] hydrOXYzine PAMOATE [Vistaril] 50 mg PO HS 07/19/18 [History] Calcium Carbonate [Calcium] 600 mg PO DAILY 03/04/19 [History] Albuterol Inhaler [Ventolin Hfa Inhaler] 1 - 2 puff INHALATION Q6HR PRN #1 inhaler 03/07/19 [Rx] Budesonide-Formot 160-4.5 Mcg [Symbicort 160-4.5 Mcg Inhaler] 2 puff INHALATION BID #1 inhaler 03/07/19 [Rx] Ferrous Sulfate [Feosol] 325 mg PO BID #60 tab 03/07/19 [Rx] Furosemide [Lasix] 20 mg PO BID@0900,1600 #60 tab 03/07/19 [Rx] Metoprolol Tartrate [Lopressor] 50 mg PO BID #60 tab 03/07/19 [Rx] Thiamine [Vitamin B-1] 100 mg PO BID-W/MEALS #30 tab 03/07/19 [Rx] Tiotropium [place] [Spiriva] 1 cap INHALATION DAILY #1 device 03/07/19 [Rx] predniSONE 10 mg PO DAILY #30 tab 03/07/19 [Rx] Follow up Appointment(s)/Referral(s): Zander Rice DO [Primary Care Provider] - 3 Days Discharge Disposition: HOME SELF-CARE
--- NOTE | 2019-03-07 11:40 | XR ---
EXAMINATION TYPE: XR chest 1V DATE OF EXAM: 03/07/2019 COMPARISON: CT of 09/20/2018 HISTORY: Shortness of breath TECHNIQUE: Single frontal view of the chest is obtained. FINDINGS: There are innumerable bilateral pulmonary nodules demonstrated to be calcified on the CT da najma 09/20/2018. There is no focal air space opacity, pleural effusion, or pneumothorax seen. The card iac silhouette size is within normal limits. The osseous structures are intact. IMPRESSION: Innumerable calcified micronodules that can be seen in prior healed varicella pneumonia or tuberculosis. No new focal consolidation or acute process seen.
--- NOTE | 2019-03-07 18:42 | PN ---
PROGRESS NOTE DATE OF DICTATION: 03/07/2019 Patient is a 53-year-old white male with history of alcoholic cirrhosis of the liver who was admitted to the hospital because of anemia. He was noted to have a hemoglobin of 7.3 g/dL and platelets of 376,000. He also was noted to have mild elevation of serum transaminases with ALT and AST in the range of 60s. He was seen by Dr. Dias yesterday, who had recommended an EGD and colonoscopy as a part of evaluation of anemia. Patient wanted to think overnight and this morning states that he wants to consider this on an outpatient basis. He wants to go home today. He denies any complaints. PHYSICAL EXAMINATION: He appears comfortable. No apparent distress. Vital signs are stable. Blood pressure 132/86, pulse rate 88 per minute and afebrile. She appears comfortable. No apparent distress. HEENT examination unremarkable. Conjunctivae pink. Sclerae anicteric. Oral cavity no lesions. NECK: No JVD or lymph node enlargement. CHEST: Clear to auscultation. HEART: Regular rate and rhythm. ABDOMEN: Soft. Bowel sounds are positive. No organomegaly. EXTREMITIES: No pedal edema. SKIN: No rashes. NEUROLOGIC: Alert and oriented x3. No focal deficits. LABS: Labs from today show WBC 6.9, hemoglobin 7.1 after one unit of blood transfusion, and platelets are 376. Serum iron was 17 and TIBC 397, iron saturation 4% and ferritin was 23. IMPRESSION: 1. Iron deficiency anemia with a hemoglobin of 7.1 g/dL, status post one unit of blood transfusion. Patient clinically has no active ongoing bleeding. He mentioned that he did have an EGD and colonoscopy a few years ago but does not recall any details. Most likely we are dealing with upper GI blood loss as the source of anemia. 2. History of alcoholism and alcoholic cirrhosis of the liver. 3. History of atrial fibrillation. 4. Hypertension. 5. Hypercholesteremia. 6. Gastroesophageal reflux disease. RECOMMENDATIONS: Once again discussed with the patient regarding importance of endoscopic workup in regards to ongoing anemia. He wants to go home today and wants to follow up with Dr. Dias in a couple of weeks and discuss with him on an outpatient basis. He was advised to continue with omeprazole 20 mg daily, iron supplements 1 tablet twice daily and have hemoglobin and hematocrit monitored on an outpatient basis. He will be seen by Dr. Dias in 2 weeks following discharge from the hospital. Thank you for this consultation. MMODL / IJN: [id number] /
== END 2019-03-07 13:05 | disposition home health service (06) | DRG 812 ==
LOC: EC 15:21 → 3SCARD 19:07
PROVIDERS: ADMIT Internal Medicine; ATTEND Internal Medicine
PROC: 30233N1 Transfusion of Nonautologous Red Blood Cells into Peripheral Vein, Percutaneous Approach (ICD-10-PCS; principal; 2019-03-05)
DX: D50.9 Iron deficiency anemia, unspecified (principal); I48.20 Chronic atrial fibrillation, unspecified; E87.1 Hypo-osmolality and hyponatremia; F10.239 Alcohol dependence with withdrawal, unspecified; J44.1 Chronic obstructive pulmonary disease with (acute) exacerbation; I48.3 Typical atrial flutter; I48.0 Paroxysmal atrial fibrillation; D53.9 Nutritional anemia, unspecified; D63.8 Anemia in other chronic diseases classified elsewhere; E03.9 Hypothyroidism, unspecified; E78.00 Pure hypercholesterolemia, unspecified; E78.5 Hyperlipidemia, unspecified; E83.42 Hypomagnesemia; E86.1 Hypovolemia; E87.5 Hyperkalemia; E87.70 Fluid overload, unspecified; F17.200 Nicotine dependence, unspecified, uncomplicated; F41.9 Anxiety disorder, unspecified; I10 Essential (primary) hypertension; I27.21 Secondary pulmonary arterial hypertension; K70.31 Alcoholic cirrhosis of liver with ascites; K21.9 Gastro-esophageal reflux disease without esophagitis; Z86.718 Personal history of other venous thrombosis and embolism; Z91.14 Patient's other noncompliance with medication regimen; Z79.51 Long term (current) use of inhaled steroids; Z79.899 Other long term (current) drug therapy; Z96.641 Presence of right artificial hip joint; Z88.1 Allergy status to other antibiotic agents; Z88.5 Allergy status to narcotic agent; Z88.0 Allergy status to penicillin; Z88.2 Allergy status to sulfonamides; Z71.6 Tobacco abuse counseling
CPT/HCPCS: 36415; 70450; 71045; 72125; 74177; 78582; 80048; 80053; 80320; 82272; 82607; 82728; 82747; 83540; 83550; 83605; 83690; 83735; 83921; 84439; 84443; 84484; 85025; 85027; 85610; 85730; 86850; 86900; 86901; 86920; 93306; 93970; 94640; 94760; 96360; 96361; 96365; 96366; 96368; 96376; 99291

== ENCOUNTER 2019-03-15 18:51 | Observation (INO) | payer OTHER ==
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
[2019-03-15] MEDS ORDERED: DILTIAZEM DRIP BOLUS FROM BAG 1 MG SOLN IV ONE (19:25)
[2019-03-15] MEDS: DILTIAZEM 125 MG in SODIUM CHLORIDE 0.9% 100 ML IV SCH (19:48)
[2019-03-15 19:55] LABS: ALT 41 U/L (21-72); AST 36 U/L (17-59); African American GFR (CKD) >90 (>60 ml/min/1.73 sqM); Albumin 3.5 g/dL (3.5-5.0); Alcohol 39 mg/dL; Alkaline Phosphatase 84 U/L (38-126); Anion Gap 9 mmol/L; Blood Urea Nitrogen 10 mg/dL (9-20); Calcium 8.9 mg/dL (8.4-10.2); Carbon Dioxide 27 mmol/L (22-30); Chloride 104 mmol/L (98-107); Creatine Kinase 45 U/L (55-170); Glucose 86 mg/dL (74-99); Magnesium 1.1 mg/dL (1.6-2.3); Non-African American GFR(CKD) >90 (>60 ml/min/1.73 sqM); Sodium 140 mmol/L (137-145); Total Bilirubin 0.6 mg/dL (0.2-1.3)
--- NOTE | 2019-03-15 19:59 | XR ---
EXAMINATION TYPE: XR chest 2V DATE OF EXAM: 03/15/2019 COMPARISON: 03/07/2019 HISTORY: Dysrhythmia TECHNIQUE: Frontal and lateral views of the chest are obtained. FINDINGS: Heart is normal. There is extensive nodular calcific density throughout the lungs with nod ules that measure up to 5 mm. There is mild pleural thickening on the left lateral chest wall. There are no hilar masses. Mediastinum is normal. There are chest leads. IMPRESSION: Extensive calcific nodular infiltrate in the lungs could relate to pneumoconiosis or danna coidosis. This appears unchanged compared to last exam. There is increasing pleural thickening on the left lateral chest wall probably not changed allowing for different technique compared to last exam.
[2019-03-15 20:02] LABS: Partial Thromboplastin Time 23.6 sec (22.0-30.0); Prothrombin Time 10.8 sec (9.0-12.0)
[2019-03-15 20:14] LABS: Anisocytosis Moderate; HCT 29.6 % (39.0-53.0); HGB 8.3 gm/dL (13.0-17.5); Hypochromasia Marked; MCH 22.9 pg (25.0-35.0); MCHC 28.1 g/dL (31.0-37.0); MCV 81.5 fL (80.0-100.0); Mean Platelet Volume 6.8; Microcytosis Slight; Platelet Count 354 k/uL (150-450); Poikilocytosis Slight; RBC 3.63 m/uL (4.30-5.90); RDW 22.1 % (11.5-15.5)
[2019-03-15 20:47] LABS: Eosinophils # (M) 0.18 k/uL (0-0.7); Lymphocytes # (M) 1.74 k/uL (1.0-4.8); Monocytes # (M) 0.48 k/uL (0-1.0); Neutrophils # (M) 3.66 k/uL (1.3-7.7); Neutrophils % (M) 61 %; Nucleated Red Blood Cells 1 /100 WBC (0-0); Total Cells Counted 200
[2019-03-15 20:48] LABS: Poikilocytosis (M) Present; Polychromasia Present; Target Cells Present
[2019-03-15 20:50] LABS: Large Platelets Present
[2019-03-15] MEDS ORDERED: NALOXONE 0.4 MG/ML 1 ML VIAL IV PRN (21:05)
[2019-03-15] MEDS ORDERED: NICOTINE 21MG/24HR PATCH TRANSDERM STA (21:06)
[2019-03-15] MEDS ORDERED: LORazepam 2 MG/ML INJ IV PRN ×3 (21:07)
[2019-03-15] MEDS ORDERED: ALBUTEROL INHALER 60 PUFF/8 GM INHALER INHALATION PRN (21:07)
[2019-03-15] MEDS ORDERED: THIAMINE 100 MG/ML 2 ML VIAL IM STA (21:07)
[2019-03-15] MEDS ORDERED: IPRATROPIUM 0.5 MG/2.5 ML NEBU INHALATION PRN (21:07)
[2019-03-15] MEDS: THIAMINE 100 MG TAB PO SCH (21:10)
[2019-03-15] MEDS ORDERED: DILTIAZEM 125 MG in SODIUM CHLORIDE 0.9% 100 ML IV SCH (21:15)
[2019-03-15] MEDS ORDERED: IPRATROPIUM-ALBUTEROL 3 ML NEB INHALATION PRN (21:27)
[2019-03-15] MEDS: MAGNESIUM SULFATE-D5W PMX 1 GM in DEXTROSE/WATER 1 100ML.BAG IVPB SCH ×2 (21:43→23:42)
[2019-03-15] MEDS: SODIUM CHLORIDE 0.9% 1,000 ML IV SCH (21:50)
[2019-03-15 22:58] LABS: Glucose,Whole Blood 165 mg/dL (75-99)
[2019-03-15 23:21] VITALS: BMI 28.8
[2019-03-16 05:28] LABS: African American GFR (CKD) >90 (>60 ml/min/1.73 sqM); Anion Gap 4 mmol/L; Blood Urea Nitrogen 10 mg/dL (9-20); Calcium 9.1 mg/dL (8.4-10.2); Carbon Dioxide 30 mmol/L (22-30); Chloride 104 mmol/L (98-107); Glucose 100 mg/dL (74-99); Magnesium 1.5 mg/dL (1.6-2.3); Non-African American GFR(CKD) >90 (>60 ml/min/1.73 sqM); Potassium 4.3 mmol/L (3.5-5.1); Sodium 138 mmol/L (137-145)
[2019-03-16] MEDS: MAGNESIUM SULFATE-D5W PMX 1 GM in DEXTROSE/WATER 1 100ML.BAG IVPB SCH ×2 (05:53→07:02)
[2019-03-16] MEDS: THIAMINE 100 MG TAB PO SCH ×2 (05:54→17:34)
[2019-03-16] MEDS: PANTOPRAZOLE 40 MG TABLET PO SCH ×2 (05:54→17:34)
[2019-03-16] MEDS: DILTIAZEM 125 MG in SODIUM CHLORIDE 0.9% 100 ML IV SCH (06:04)
[2019-03-16 06:28] LABS: Anisocytosis Moderate; HCT 28.4 % (39.0-53.0); Hypochromasia Marked; MCH 23.7 pg (25.0-35.0); MCHC 28.2 g/dL (31.0-37.0); MCV 84.1 fL (80.0-100.0); Mean Platelet Volume 5.8; Microcytosis Slight; Platelet Count 336 k/uL (150-450); Poikilocytosis Slight; RBC 3.37 m/uL (4.30-5.90); WBC 7.3 k/uL (3.8-10.6)
[2019-03-16] MEDS ORDERED: THIAMINE 100 MG TAB PO SCH (07:30)
[2019-03-16] MEDS: IPRATROPIUM 0.5 MG/2.5 ML NEBU INHALATION SCH ×4 (07:31→18:47)
[2019-03-16] MEDS: SYMBICORT 160-4.5 MCG INHALER INHALATION SCH ×2 (07:31→18:46)
[2019-03-16] MEDS ORDERED: IPRATROPIUM 0.5 MG/2.5 ML NEBU INHALATION SCH (08:00)
[2019-03-16 08:46] LABS: Basophils # (M) 0.07 k/uL (0-0.2); Eosinophils # (M) 0.15 k/uL (0-0.7); Lymphocytes # (M) 1.24 k/uL (1.0-4.8); Monocytes # (M) 0.51 k/uL (0-1.0); Neutrophils # (M) 5.33 k/uL (1.3-7.7); Neutrophils % (M) 73 %; Nucleated Red Blood Cells 0 /100 WBC (0-0); Total Cells Counted 100
[2019-03-16 08:47] LABS: Mixed Population RBC Present
[2019-03-16] MEDS: ATORVASTATIN 40 MG TAB PO SCH (09:36)
[2019-03-16] MEDS: CALCIUM CARBONATE 500 MG CHEWABLE PO SCH (09:36)
[2019-03-16] MEDS: FUROSEMIDE 20 MG TAB PO SCH ×2 (09:37→17:34)
[2019-03-16] MEDS: GABAPENTIN 400 MG CAP PO SCH ×2 (09:37→20:07)
[2019-03-16] MEDS: hydrOXYzine PAMOATE 25 MG CAP PO SCH (09:37)
[2019-03-16] MEDS: CYCLOBENZAPRINE 10 MG TAB PO SCH ×2 (09:37→20:08)
[2019-03-16] MEDS: FERROUS SULFATE 325 MG TAB PO SCH ×2 (09:37→20:08)
[2019-03-16] MEDS: METOPROLOL TARTRATE 50 MG TAB PO SCH ×2 (09:38→20:07)
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
[2019-03-16] MEDS ORDERED: hydrOXYzine PAMOATE 25 MG CAP PO SCH (21:00)
[2019-03-16] MEDS ORDERED: DILTIAZEM CD 120 MG CAP.ER.24H PO SCH (21:00)
[2019-03-16] MEDS: SODIUM CHLORIDE 0.9% 1,000 ML IV SCH (23:32)
[2019-03-17] MEDS: PANTOPRAZOLE 40 MG TABLET PO SCH (06:39)
[2019-03-17] MEDS: THIAMINE 100 MG TAB PO SCH (06:39)
[2019-03-17] MEDS: SYMBICORT 160-4.5 MCG INHALER INHALATION SCH (07:56)
[2019-03-17] MEDS: IPRATROPIUM 0.5 MG/2.5 ML NEBU INHALATION SCH ×2 (07:56→11:30)
[2019-03-17] MEDS: hydrOXYzine PAMOATE 25 MG CAP PO SCH (08:59)
[2019-03-17] MEDS: FUROSEMIDE 20 MG TAB PO SCH (09:00)
[2019-03-17] MEDS: FERROUS SULFATE 325 MG TAB PO SCH (09:00)
[2019-03-17] MEDS: GABAPENTIN 400 MG CAP PO SCH (09:00)
[2019-03-17] MEDS: CALCIUM CARBONATE 500 MG CHEWABLE PO SCH (09:00)
[2019-03-17] MEDS: METOPROLOL TARTRATE 50 MG TAB PO SCH (09:00)
[2019-03-17] MEDS: ATORVASTATIN 40 MG TAB PO SCH (09:01)
[2019-03-17] MEDS: CYCLOBENZAPRINE 10 MG TAB PO SCH (09:01)
[2019-03-17] MEDS ORDERED: NICOTINE 14MG/24HR PATCH TRANSDERM SCH (09:30)
[2019-03-17 10:36] VITALS: BP 114/86; RESP 18; TEMP 97.8
--- NOTE | 2019-03-17 10:39 | P.DS ---
Providers Date of admission: 03/15/19 21:09 Attending physician: Misty Bull Consults: 03/15/19 21:06 Consult Physician Routine Consulting Provider: Dudley Choe Consult Reason/Comments: Rapid atrial fibrillation Do you want consulting provider notified?: Yes Primary care physician: [facility] Course: 53-year-old gentleman who requested to see as a consult for further evaluation off atrial fibrillation. The patient is known to or service before. He just was discharged from the hospital last week after he was admitted with atrial fibrillation with RVR. He does have a past medical history significant for alcohol abuse, chronic anemia, as well as long-standing persistent atrial fibrillation. He was felt that he is not a good candidate for oral anticoagulation because of his anemia. He was discharged in stable medical condition and subsequently he was seen by his primary care physician in the office where a blood test was performed and he was told that the hemoglobin was below 7 and the patient need to go to the hospital. In the hospital the hemoglobin was above 8. When he presented he was in atrial fibrillation with heart rate around 100 beats per minutes where the patient was subsequently started on Cardizem drip and was admitted to the intensive care unit. The patient was seen and evaluated this morning. He is on small dose of Cardizem drip. Also he is on metoprolol tartrate 50 mg by mouth twice a day. I am going to wean him from the Cardizem drip and restart him back on Cardizem by mouth. During his last admission an echocardiogram was performed and revealed an EF of 50-55% with mild MR and mild TR. TSH during the last admission was performed as well. Please note that the patient does have significant history of alcohol abuse and also history of liver cirrhosis. At the last admission his hemoglobin was below 7 and received one unit of packed RBC. During this admission hemoglobin remained above 8. He is asymptomatic from the cardiovascular standpoint overview. As a matter fact the patient can be transferred out of the intensive care. 03/17/2019 Patient is chronic A. fib but rate controlled but his heart rate still goes up upon ambulation to around 1:30. We can probably increase the dose of beta angel or Cardizem, if cleared by cardiology patient will be discharged patient doesn't want to stay in the hospital wanted to be discharged tomorrow today his lungs sound better today. Will be discharged on Symbicort will not need any systemic steroids. PHYSICAL EXAMINATION: GENERAL: The patient is alert and oriented x3, not in any acute distress. Well developed, well nourished. HEENT: Pupils are round and equally reacting to light. EOMI. No scleral icterus. No conjunctival pallor. Normocephalic, atraumatic. No pharyngeal erythema. No thyromegaly. CARDIOVASCULAR: S1 and S2 present. No murmurs, rubs, or gallops. irregular rhythm and rate controlled PULMONARY: Chest is clear to auscultation, no wheezing or crackles. ABDOMEN: Soft, nontender, nondistended, normoactive bowel sounds. No palpable organomegaly. MUSCULOSKELETAL: No joint swelling or deformity. EXTREMITIES: No cyanosis, clubbing, or pedal edema. NEUROLOGICAL: Gross neurological examination did not reveal any focal deficits. SKIN: No rashes. Assessment and Plan Plan: -Atrial fibrillation with rapid ventricular rate: Patient it is better controlled now is probably due to hypoxia. -Anemia chronic chronic iron deficiency most probably patient is on iron supplementation here. No signs or symptoms of acute GI bleed. -COPD with mild acute exacerbation do not believe patient will need systemic steroids nicotine cessation counseling was provided patient will be started on inhaled steroids -Possible alcoholic cirrhosis Patient is trying to cut down alcohol but did have couple occasions of drinking since his last discharge about 10 days ago. Patient was counseled regarding this as well. -Nodular /sarcoid-like lesions on the chest x-ray which are old and for which patient will follow with pulmonology as an outpatient -Hyperlipidemia Patient Condition at Discharge: Fair Plan - Discharge Summary Discharge Rx Participant: No New Discharge Prescriptions: New Budesonide-Formot 160-4.5 Mcg [Symbicort 160-4.5 Mcg Inhaler] 2 puff INHALATION BID #1 inhaler Continue Gabapentin 1,200 mg PO BID Cyclobenzaprine [Flexeril] 10 mg PO BID Ipratropium [place] [Atrovent Hfa] 2 puff INHALATION RT-Q6H PRN PRN Reason: Shortness Of Breath Diltiazem HCl [Diltiazem 24Hr CD] 120 mg PO DAILY Omeprazole [PriLOSEC] 20 mg PO AC-BID Atorvastatin [Lipitor] 40 mg PO DAILY Calcium Carbonate [Calcium] 600 mg PO DAILY Furosemide [Lasix] 20 mg PO BID@0900,1600 #60 tab Thiamine [Vitamin B-1] 100 mg PO BID-W/MEALS #30 tab Metoprolol Tartrate [Lopressor] 50 mg PO BID #60 tab Ferrous Sulfate [Feosol] 325 mg PO BID #60 tab Albuterol Sulfate [Ventolin HFA] 1 - 2 puff INHALATION RT-Q6H PRN PRN Reason: Shortness Of Breath Discontinued hydrOXYzine PAMOATE [Vistaril] 25 mg PO QAM hydrOXYzine PAMOATE [Vistaril] 50 mg PO HS predniSONE See Taper PO DAILY Discharge Medication List Cyclobenzaprine [Flexeril] 10 mg PO BID 09/04/13 [History] Gabapentin 1,200 mg PO BID 09/04/13 [History] Ipratropium [place] [Atrovent Hfa] 2 puff INHALATION RT-Q6H PRN 09/04/13 [History] Diltiazem HCl [Diltiazem 24Hr CD] 120 mg PO DAILY 10/17/17 [History] Atorvastatin [Lipitor] 40 mg PO DAILY 10/18/17 [History] Omeprazole [PriLOSEC] 20 mg PO AC-BID 10/18/17 [History] Calcium Carbonate [Calcium] 600 mg PO DAILY 03/04/19 [History] Ferrous Sulfate [Feosol] 325 mg PO BID #60 tab 03/07/19 [Rx] Furosemide [Lasix] 20 mg PO BID@0900,1600 #60 tab 03/07/19 [Rx] Metoprolol Tartrate [Lopressor] 50 mg PO BID #60 tab 03/07/19 [Rx] Thiamine [Vitamin B-1] 100 mg PO BID-W/MEALS #30 tab 03/07/19 [Rx] Albuterol Sulfate [Ventolin HFA] 1 - 2 puff INHALATION RT-Q6H PRN 03/15/19 [History] Budesonide-Formot 160-4.5 Mcg [Symbicort 160-4.5 Mcg Inhaler] 2 puff INHALATION BID #1 inhaler 03/17/19 [Rx] Follow up Appointment(s)/Referral(s): [facility], [NON-STAFF] - As Needed Zander Rice DO [Primary Care Provider] - 1-2 days
[2019-03-17] MEDS ORDERED: MAGNESIUM SULFATE-D5W PMX 1 GM in DEXTROSE/WATER 1 100ML.BAG IVPB ONE (11:30)
[2019-03-17 11:32] VITALS: PULSE 76
--- NOTE | 2019-03-17 15:47 | PN ---
PROGRESS NOTE Mr. Purvis is a 53-year-old male with a history of chronic alcohol intake, chronic tobacco use and chronic obstructive lung disease; history of atrial fibrillation, not anticoagulated because of the alcoholism and the anemia. He is feeling well today, ambulating without difficulty. His breathing is stable. He is denying any symptoms of chest pain. He denies any dizziness or palpitation. He continues to be at this time on budesonide, Flexeril, diltiazem CD 120 mg daily, iron, furosemide 20 mg twice a day, magnesium, metoprolol tartrate 50 mg twice a day. PHYSICAL EXAMINATION: Blood pressure 114/80 with a heart in 70s. LUNGS: With decreased air exchange and scattered wheezes. HEART: Irregular, regular. S1, S2. No S3. No rub. ABDOMEN: Soft, nontender. EXTREMITIES: No significant edema. LAB DATA: Yesterday revealed hemoglobin of 8. IMPRESSION: 1. Atrial fibrillation, chronic with controlled ventricular response at this time and not anticoagulated because of anemia and alcoholism. 2. History of chronic obstructive lung disease. 3. History of alcohol abuse with liver cirrhosis. RECOMMENDATION: From the cardiac standpoint, the patient is stable. We will continue present therapy. I would expect he should be able to be discharged home. MMODL / IJN: [id number] /
== END 2019-03-17 14:04 | disposition home or self-care (01) ==
LOC: EC 18:51 → 2SICU 21:05 → INTOOBSV 21:05 → 2SICU 21:09 → UNDOADMIN 21:09 → 2SICU 22:15 → 3SCARD 03-16 22:24 → 2SICU 03-16 22:24 → UNDODISIN 03-17 14:04
PROVIDERS: ADMIT Internal Medicine; ATTEND Internal Medicine
DX: I48.11 Longstanding persistent atrial fibrillation (principal); J44.1 Chronic obstructive pulmonary disease with (acute) exacerbation; F17.200 Nicotine dependence, unspecified, uncomplicated; E83.42 Hypomagnesemia; F10.20 Alcohol dependence, uncomplicated; E66.3 Overweight; D63.8 Anemia in other chronic diseases classified elsewhere; D50.9 Iron deficiency anemia, unspecified; D86.9 Sarcoidosis, unspecified; E78.5 Hyperlipidemia, unspecified; M19.90 Unspecified osteoarthritis, unspecified site; F41.9 Anxiety disorder, unspecified; Z96.641 Presence of right artificial hip joint; K74.60 Unspecified cirrhosis of liver; Z79.51 Long term (current) use of inhaled steroids; Z79.899 Other long term (current) drug therapy; Z98.890 Other specified postprocedural states; Z80.9 Family history of malignant neoplasm, unspecified; Z82.49 Family history of ischemic heart disease and other diseases of the circulatory system; Z71.6 Tobacco abuse counseling; Z88.1 Allergy status to other antibiotic agents; Z88.5 Allergy status to narcotic agent; Z88.0 Allergy status to penicillin; Z88.2 Allergy status to sulfonamides
CPT/HCPCS: 96366 ×3; 96368 ×2; 96376; 96365; 96372; 99285; 36415; 94640 ×4; 93005; 86900; 86901; 80053; 80048; 82550; 83735 ×3; 84484; 85025 ×2; 85610; 85730; 86850; 71046; G0378 ×4; G0480; S4990; J3411; J3475 ×2; 80320

== ENCOUNTER 2019-05-02 14:23 | Inpatient (IN) | payer OTHER ==
[2019-05-02] MEDS ORDERED: THIAMINE 100 MG in SODIUM CHLORIDE 0.9% 50 ML IVPB STA (14:41)
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
[2019-05-02 15:13] LABS: INR 1.1 (<1.2); Partial Thromboplastin Time 22.9 sec (22.0-30.0); Prothrombin Time 11.2 sec (9.0-12.0)
[2019-05-02 15:14] LABS: Ammonia <9 umol/L (<30); Anisocytosis Marked; Basophils # (A) 0.1 k/uL (0-0.2); Basophils % (A) 1 %; Eosinophils # (A) 0.1 k/uL (0-0.7); Eosinophils % (A) 1 %; HCT 40.8 % (39.0-53.0); Hypochromasia Marked; Lactic Acid, Venous 1.5 mmol/L (0.7-2.0); Lymphocytes # (A) 1.5 k/uL (1.0-4.8); Lymphocytes % (A) 16 %; MCH 26.6 pg (25.0-35.0); MCHC 28.9 g/dL (31.0-37.0); Macrocytosis Slight; Mean Platelet Volume 7.2; Microcytosis Slight; Monocytes # (A) 0.6 k/uL (0-1.0); Monocytes % (A) 6 %; Neutrophils # (A) 7.3 k/uL (1.3-7.7); Neutrophils % (A) 74 %; Platelet Count 370 k/uL (150-450); RBC 4.43 m/uL (4.30-5.90); RDW 24.6 % (11.5-15.5); WBC 9.9 k/uL (3.8-10.6)
[2019-05-02 15:16] LABS: ALT 30 U/L (4-49); AST 36 U/L (17-59); African American GFR (CKD) >90 (>60 ml/min/1.73 sqM); Albumin 4.2 g/dL (3.5-5.0); Alkaline Phosphatase 117 U/L (38-126); Amylase 33 U/L (30-110); Anion Gap 11 mmol/L; Blood Urea Nitrogen 14 mg/dL (9-20); Calcium 9.4 mg/dL (8.4-10.2); Carbon Dioxide 27 mmol/L (22-30); Chloride 97 mmol/L (98-107); Glucose 106 mg/dL (74-99); Non-African American GFR(CKD) >90 (>60 ml/min/1.73 sqM); Potassium 4.2 mmol/L (3.5-5.1); Sodium 135 mmol/L (137-145); Total Protein 8.2 g/dL (6.3-8.2)
[2019-05-02 15:18] LABS: HGB 11.8 gm/dL (13.0-17.5); MCV 92.3 fL (80.0-100.0)
[2019-05-02 15:19] LABS: Alcohol 167 mg/dL
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
--- NOTE | 2019-05-02 15:52 | XR ---
EXAMINATION TYPE: XR chest 2V DATE OF EXAM: 05/02/2019 COMPARISON: 03/15/2019 INDICATION: Previous abnormal chest, abdominal pain TECHNIQUE: Frontal and lateral views of the chest are obtained. FINDINGS: The heart size is normal. The pulmonary vasculature is normal. There is diffuse nodularity present throughout the bilateral lung moore. Findings appear stable from comparison. IMPRESSION: 1. Diffuse stable appearing nodularity through the bilateral lung moore. 2. No acute changes.
[2019-05-02 16:03] LABS: Poikilocytosis (M) Present; Polychromasia Present; Target Cells Present
[2019-05-02] MEDS ORDERED: DILTIAZEM DRIP BOLUS FROM BAG 1 MG SOLN IV ONE (16:19)
[2019-05-02] MEDS ORDERED: THIAMINE 100 MG/ML 2 ML VIAL IM STA (16:25)
[2019-05-02] MEDS ORDERED: LORazepam 2 MG/ML INJ IV PRN (16:25)
[2019-05-02] MEDS ORDERED: NALOXONE 0.4 MG/ML 1 ML VIAL IV PRN (16:30)
[2019-05-02] MEDS ORDERED: MAGNESIUM SULFATE-D5W PMX 1 GM in DEXTROSE/WATER 1 100ML.BAG IVPB ONE (16:37)
[2019-05-02] MEDS: DILTIAZEM 125 MG in SODIUM CHLORIDE 0.9% 100 ML IV SCH (17:10)
[2019-05-02] MEDS: LORazepam 2 MG/ML INJ IV PRN ×2 (18:42→21:56)
[2019-05-02] MEDS ORDERED: NON FORMULARY DRUG (Ipratropium Bromide [Atrovent Hfa] 2 PUFF) INHALATION PRN (20:10)
[2019-05-02] MEDS ORDERED: HYDROmorphone 0.5 MG/0.5 ML SYRINGE IVP PRN (20:12)
[2019-05-02] MEDS: PANTOPRAZOLE 40 MG/10 ML VIAL IVP SCH (21:01)
[2019-05-02] MEDS: HYDROcodone/APAP 5-325MG 1 EACH TAB PO PRN (21:02)
[2019-05-02 21:21] LABS: Appearance,Urine Clear (Clear); Bilirubin,Urine Negative (Negative); Blood,Urine Negative (Negative); Color,Urine Yellow; Glucose,Urine (UA) Negative (Negative); Ketones,Urine Negative (Negative); Leukocyte Esterase,Urine Negative (Negative); Nitrite,Urine Negative (Negative); Protein,Urine Trace (Negative); Specific Gravity,Urine 1.021 (1.001-1.035)
[2019-05-02] MEDS: GABAPENTIN 400 MG CAP PO SCH (21:59)
[2019-05-02] MEDS: FUROSEMIDE 10 MG/ML 4 ML VIAL IV SCH (21:59)
[2019-05-02] MEDS: hydrOXYzine PAMOATE 25 MG CAP PO SCH (21:59)
[2019-05-02] MEDS: METOPROLOL TARTRATE 50 MG TAB PO SCH (22:00)
[2019-05-02] MEDS: CYCLOBENZAPRINE 10 MG TAB PO SCH (22:00)
[2019-05-02] MEDS: SPIRONOLACTONE 25 MG TAB PO SCH (22:05)
[2019-05-02] MEDS: FERROUS SULFATE 325 MG TAB PO SCH (22:05)
--- NOTE | 2019-05-02 22:22 | HP ---
HISTORY AND PHYSICAL CHIEF COMPLAINTS: Dizziness and palpitation and weakness and fall. HISTORY OF PRESENT ILLNESS: This 54-year-old gentleman with a past medical history of multiple medical problems including atrial fibrillation, history of COPD, DVT, GERD, hypertension, history of liver disease, history of liver cirrhosis, hemorrhoids, joint replacements, being followed by Dr. Zander Rice in the outpatient setting, also had significant history of alcohol. The patient apparently lives by himself and the patient was most recently admitted a month ago with features of atrial fibrillation and anemia, COPD and other multiple medical issues. The patient called one of his sisters and said that the patient is weak and patient also fallen and the family came and checked on him and the patient is found to be dishevelled and with multiple bruises. Patient taken to [facility] and admitted to the hospital for further evaluation and treatment. Serum alcohol was found to be 167. An EKG was done at the time of admission showed which showed atrial flutter with 2:1 AV block and the patient admitted for further evaluation and treatment. The patient also had a workup including CT scan of the cervical spine and head as a part of the workup and showed no acute abnormality at this time. Currently the patient is mildly confused and able to provide only sketchy history. Most of the history taken from my discussion with staff, and discussion with the ER physician and discussion with 2 sisters at bedside also at this time. PAST MEDICAL HISTORY: History of atrial fibrillation, history of COPD, DVT, GERD, hyperlipidemia, history of liver disease, history of joint replacements and anxiety. MEDICATIONS: Home medications are: 1. Hydroxyzine 50 mg q.h.s., 25 mg q.a.m. 2. Vitamin B1 100 mg p.o. b.i.d.. 3. Prilosec 20 mg p.o. b.i.d. 4. Lopressor 50 mg p.o. b.i.d. 5. Atrovent 2 puffs q.6h p.r.n. 6. Gabapentin 1200 mg p.o. b.i.d. 7. Lasix 20 mg p.o. b.i.d. 8. Iron sulfate 320 mg p.o. b.i.d. 9. Diltiazem CD 120 mg p.o. daily. 10.Flexeril 10 mg p.o. t.i.d. 11.Lipitor 40 mg p.o. daily. 12.Ventolin HFA 1-2 puffs q.6h p.r.n. ALLERGIES: CIPRO, FENTANYL, PENICILLIN, BACTRIM. FAMILY HISTORY: Of cancer in the family. SOCIAL HISTORY: History of smoking. Occasional alcohol intake. REVIEW OF SYSTEMS: ENT diminished vision. Diminished hearing. CARDIOVASCULAR system as mentioned earlier. RESPIRATORY: As mentioned earlier. GASTROINTESTINAL: The patient also had significant abdominal distention. no dysuria. NERVOUS SYSTEM: No numbness or weakness. ALLERGY/IMMUNOLOGY: No asthma or hayfever. MUSCULOSKELETAL as mentioned earlier. HEMATOLOGY/ONCOLOGY: No history of anemia. ENDOCRINE no history of diabetes or hypothyroidism. CONSTITUTIONAL: As mentioned earlier. DERMATOLOGY mentioned earlier. RHEUMATOLOGY negative. PSYCHIATRY as mentioned. PHYSICAL EXAMINATION: Alert and oriented x3. Pulse is 133, irregular. Blood pressure is 139/ 112, respiration 18, temperature is normal. Pulse ox 94% on 2 L. HEENT: Conjunctivae normal. Oral mucosa moist. NECK is no jugular venous distention. No carotid bruit. No lymph node enlargement. Otherwise, the neck is full. Jugular venous distention also present. Cardiovascular system irregular. No S3, no S4. Ejection systolic murmur. Respiration: Breath sounds diminished in the bases. A few scattered rhonchi and crackles. ABDOMEN: Soft, obese. Ascites present. Tense. Legs: Bilateral leg edema and bilateral leg cellulitis also present. NERVOUS SYSTEM: Higher functions as mentioned earlier. Moves all 4 limbs. Mild diffuse weakness. Diffuse tremors also present. SKIN: Multiple abrasions present. JOINTS: No active deforming arthropathy. LYMPHATICS: No lymph nodes palpable in the neck, axillae or groin. LABS: WBC 9.2, hemoglobin 11.2. Sodium 135, potassium 4.2. ASSESSMENT: 1. Acute alcohol intoxication, possibly alcohol withdrawal and delirium tremens. 2. Atrial flutter with fast ventricular rate with 2-1 varying block. 3. Change in mental status, metabolic encephalopathy, multifactorial. 4. Hyponatremia. 5. Anemia, normocytic anemia of chronic disease. 6. Falls and multiple abrasions. 7. History of atrial fibrillation. 8. History of chronic obstructive pulmonary disease. 9. History of deep vein thrombosis. 10.History of gastroesophageal reflux disease. 11.History of liver disease. 12.History of liver cirrhosis secondary to alcohol. 13.History of joint replacement. 14.Degenerative joint disease. 15.History of deep vein thrombosis. 16.History of anxiety. 17.History of continued ongoing nicotine dependence. 18.History of THC. 19.FULL CODE. RECOMMENDATIONS AND DISCUSSION: In this 54-year-old gentleman who presented with multiple complex medical issues, we will monitor the patient closely, continue the current medications, management and symptomatic treatment. Otherwise, I recommend CIWA protocol. Cardizem drip has been given at 5 mg/hour after bolus of 5. I would recommend to continue the Cardizem. Cardiology consultation. Resume the home medications. Alcohol cessation advised. Monitor blood pressure closely. I would also add clonidine to the current regimen. Otherwise, overall prognosis extremely guarded because of multiple complex medical conditions. Further recommendations to follow. AA meetings and alcohol rehab was also suggested to the sisters and the patient. They will talk with social worker aide and Case Management. Further evaluation. Otherwise, overall prognosis is guarded because of multiple complex medical issues. Further recommendations to follow. A copy of this dictation being forwarded to Dr. Rice who is the primary physician. All charts are reviewed. MMODL / IJN: [id number] /
[2019-05-03] MEDS: LORazepam 2 MG/ML INJ IV PRN (02:44)
[2019-05-03] MEDS: THIAMINE 100 MG TAB PO SCH ×2 (06:32→16:03)
[2019-05-03 06:47] LABS: Anisocytosis Moderate; Basophils # (A) 0.1 k/uL (0-0.2); Basophils % (A) 1 %; Eosinophils # (A) 0.1 k/uL (0-0.7); Eosinophils % (A) 1 %; HCT 39.3 % (39.0-53.0); HGB 11.3 gm/dL (13.0-17.5); Hypochromasia Marked; Lymphocytes # (A) 0.9 k/uL (1.0-4.8); Lymphocytes % (A) 10 %; MCH 27.1 pg (25.0-35.0); MCHC 28.7 g/dL (31.0-37.0); MCV 94.5 fL (80.0-100.0); Macrocytosis Moderate; Mean Platelet Volume 6.9; Monocytes # (A) 0.6 k/uL (0-1.0); Monocytes % (A) 7 %; Neutrophils # (A) 7.2 k/uL (1.3-7.7); Neutrophils % (A) 80 %; Platelet Count 338 k/uL (150-450); RBC 4.16 m/uL (4.30-5.90); RDW 23.8 % (11.5-15.5); WBC 9.1 k/uL (3.8-10.6)
[2019-05-03 07:15] LABS: African American GFR (CKD) >90 (>60 ml/min/1.73 sqM); Anion Gap 8 mmol/L; Blood Urea Nitrogen 12 mg/dL (9-20); Carbon Dioxide 28 mmol/L (22-30); Chloride 99 mmol/L (98-107); Glucose 103 mg/dL (74-99); Non-African American GFR(CKD) >90 (>60 ml/min/1.73 sqM); Sodium 135 mmol/L (137-145)
[2019-05-03] MEDS ORDERED: THIAMINE 100 MG TAB PO SCH (07:30)
[2019-05-03] MEDS ORDERED: NON FORMULARY DRUG (Omeprazole 20 MG) PO SCH (07:30)
[2019-05-03 07:51] LABS: Potassium 4.8 mmol/L (3.5-5.1)
[2019-05-03 07:52] LABS: Magnesium 1.4 mg/dL (1.6-2.3)
[2019-05-03] MEDS: FERROUS SULFATE 325 MG TAB PO SCH ×2 (08:20→20:15)
[2019-05-03] MEDS: ATORVASTATIN 40 MG TAB PO SCH (08:20)
[2019-05-03] MEDS: hydrOXYzine PAMOATE 25 MG CAP PO SCH ×2 (08:20→20:16)
[2019-05-03] MEDS: FUROSEMIDE 10 MG/ML 4 ML VIAL IV SCH (08:20)
[2019-05-03] MEDS: METOPROLOL TARTRATE 50 MG TAB PO SCH ×2 (08:20→20:15)
[2019-05-03] MEDS: CYCLOBENZAPRINE 10 MG TAB PO SCH ×3 (08:20→20:16)
[2019-05-03] MEDS: SPIRONOLACTONE 25 MG TAB PO SCH ×2 (08:20→20:16)
[2019-05-03] MEDS: GABAPENTIN 400 MG CAP PO SCH ×2 (08:20→20:16)
[2019-05-03] MEDS: PANTOPRAZOLE 40 MG/10 ML VIAL IVP SCH (08:21)
--- NOTE | 2019-05-03 09:26 | US ---
EXAMINATION TYPE: US abdomen limited DATE OF EXAM: 05/03/2019 COMPARISON: NONE CLINICAL HISTORY: assess for fluid pocket please. TECHNIQUE/FINDINGS: Grayscale ultrasound imaging was performed of the 4 quadrants of the abdomen to a ssess for ascites only. No ascites visualized on today's exam. IMPRESSION: No sonographic evidence of intra-abdominal ascites.
[2019-05-03] MEDS ORDERED: Magnesium Replacement Protocol 1 EACH MISC MISCELLANE PRN ×2 (10:11→12:01)
[2019-05-03] MEDS ORDERED: DILTIAZEM DRIP BOLUS FROM BAG 1 MG SOLN IV ONE (10:13)
[2019-05-03] MEDS: MAGNESIUM SULFATE-D5W PMX 1 GM in DEXTROSE/WATER 1 100ML.BAG IVPB SCH ×3 (10:18→14:52)
[2019-05-03] MEDS: IPRATROPIUM-ALBUTEROL 3 ML NEB INHALATION PRN (11:42)
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
[2019-05-03] MEDS: VERAPAMIL 80 MG TAB PO SCH ×3 (13:04→20:20)
[2019-05-03] MEDS: HYDROcodone/APAP 5-325MG 1 EACH TAB PO PRN ×3 (13:07→23:02)
[2019-05-03] MEDS: DILTIAZEM 125 MG in SODIUM CHLORIDE 0.9% 100 ML IV SCH (17:27)
--- NOTE | 2019-05-03 18:26 | PN ---
PROGRESS NOTE DATE OF SERVICE: 05/03/2019 This 54-year-old gentleman who was admitted with dizziness and palpitation and weakness,s also had atrial flutter present on admission. Patient also alcohol intoxication. Patient also had significant abdominal distention. Abdominal ultrasound revealed no sonographic evidence of ascites. The patient had bilateral leg swelling and patient had diffuse erythema indicating cellulitis and as well as multiple ablations also. Patient on broad-spectrum IV antibiotics. Cardizem drip was initiated and increased to 10 mg per hour to rate control. PAST MEDICAL HISTORY: Reviewed. REVIEW OF SYSTEMS: CARDIOVASCULAR SYSTEM: No angina or palpitations. RESPIRATORY SYSTEM: As mentioned earlier. GI: As mentioned earlier. : No dysuria. NERVOUS SYSTEM: Mild diffuse weakness and tremors also present. CURRENT MEDICATIONS: 1. [place] 5 mg q.6h p.r.n. 2. DuoNeb q.i.d. and p.r.n. 3. Lipitor 40 mg. 5. Cefazolin 2 g IV q.h.s. 6. Flexeril 10 mg t.i.d. 7. Cardizem drip. 8. Iron sulfate 320 mg b.i.d. 9. Lasix 40 mg IV b.i.d. 10.Neurontin. 11.Dilaudid. 12.Vistaril. 13.Ativan. 14.Lopressor. 15.Protonix. 16.P.r.n. medication. 17.Isoptin 80 mg p.o. t.i.d. Doses reviewed. PHYSICAL EXAM: The patient is alert, oriented x3. Pulse is 108, irregular. Blood pressure is 140/70, respiration 18, temp 97.8, pulse ox 90% on 3 L. HEENT: Conjunctivae normal. Oral mucosa moist. NECK: No jugular venous distention. No lymph node enlargement. CARDIOVASCULAR: S1, S2. Tachycardia. RESPIRATORY: Diminished breath sounds at the bases. A few scattered rhonchi. No crackles. ABDOMEN: Soft, nontender. No mass palpable. LEGS: No edema, no swelling. NERVOUS SYSTEM: Higher functions mentioned earlier. Moves all four limbs. No focal deficits. LYMPHATICS: No lymph node in neck or axilla. SKIN: No rash. JOINTS: No active deforming arthropathy. Chest x-ray personally reviewed by me. Abdominal ultrasound reviewed. LABS: Labs are noted. Chest x-ray: Diffuse infiltrative lesions present. ASSESSMENT: 1. Acute alcohol intoxication, possible alcohol withdrawal and early delirium tremens. 2. Atrial flutter with fast ventricular rate with 2:1 and varying block. 3. Change in mental status, acute metabolic encephalopathy, multifactorial. 4. Hypoxia with acute hypoxic respiratory failure. 5. Bilateral nodular lesions in the chest x-ray, rather stable. 6. Hyponatremia. 7. Anemia, normocytic anemia of chronic disease. 8. Falls and multiple abrasions. 9. History of atrial fibrillation. 10.History of chronic obstructive pulmonary disease. 11.History of deep venous thrombosis. 12.History of gastroesophageal reflux disease. 13.History of liver disease. 14.History of liver cirrhosis secondary to alcohol. 15.History of joint replacement. 16.History of degenerative joint disease. 17.History of anxiety. 18.Continued ongoing nicotine dependence. 19.History of THC. 20.FULL CODE. RECOMMENDATIONS AND DISCUSSION: In this 54-year-old gentleman who presented with multiple complex medical issues, we will monitor the patient closely, continue the current medication, continue symptomatic treatment. I recommend continue with CIWA protocol. Continue the empiric antibiotic cefazolin 2 g IV q.8h. Follow the cultures. I would also recommend to follow the patient closely with Cardiology and Pulmonology also will be consulted because of the chest x-ray lesions. The patient did have a CT of the chest last year, will order CT of the chest. Otherwise, continue to monitor. workers' compensation hearings officer to evaluate for the potential alcohol rehab. Otherwise, prognosis guarded because of multiple complex medical issues. See orders for details. Further recommendations to follow. DVT prophylaxis also. MMODL / IJN: [id number] / [facility]
[2019-05-03] MEDS: HEPARIN SODIUM,PORCINE 5,000 UNIT/ML 1 ML VIAL SQ SCH (20:15)
[2019-05-03] MEDS: FUROSEMIDE 10 MG/ML 2 ML VIAL IV SCH (20:16)
[2019-05-04] MEDS: DILTIAZEM 125 MG in SODIUM CHLORIDE 0.9% 100 ML IV SCH (05:33)
[2019-05-04] MEDS: PANTOPRAZOLE 40 MG TABLET PO SCH (07:02)
[2019-05-04] MEDS: THIAMINE 100 MG TAB PO SCH ×2 (07:02→16:14)
[2019-05-04 07:06] LABS: Anisocytosis Marked; Basophils # (A) 0.1 k/uL (0-0.2); Basophils % (A) 1 %; Eosinophils # (A) 0.2 k/uL (0-0.7); Eosinophils % (A) 3 %; HCT 37.5 % (39.0-53.0); Hypochromasia Marked; Lymphocytes # (A) 0.9 k/uL (1.0-4.8); Lymphocytes % (A) 12 %; MCH 27.9 pg (25.0-35.0); MCHC 29.3 g/dL (31.0-37.0); MCV 95.2 fL (80.0-100.0); Macrocytosis Moderate; Mean Platelet Volume 7.1; Monocytes # (A) 0.5 k/uL (0-1.0); Monocytes % (A) 7 %; Neutrophils # (A) 5.7 k/uL (1.3-7.7); Neutrophils % (A) 75 %; Platelet Count 290 k/uL (150-450); RBC 3.94 m/uL (4.30-5.90); RDW 24.6 % (11.5-15.5); WBC 7.6 k/uL (3.8-10.6)
[2019-05-04 07:17] LABS: African American GFR (CKD) >90 (>60 ml/min/1.73 sqM); Anion Gap 7 mmol/L; Blood Urea Nitrogen 13 mg/dL (9-20); Calcium 9.1 mg/dL (8.4-10.2); Carbon Dioxide 32 mmol/L (22-30); Chloride 97 mmol/L (98-107); Glucose 106 mg/dL (74-99); Magnesium 1.9 mg/dL (1.6-2.3); Non-African American GFR(CKD) >90 (>60 ml/min/1.73 sqM); Potassium 4.3 mmol/L (3.5-5.1); Sodium 136 mmol/L (137-145)
[2019-05-04] MEDS: METOPROLOL TARTRATE 50 MG TAB PO SCH ×3 (07:44→21:25)
[2019-05-04] MEDS: HEPARIN SODIUM,PORCINE 5,000 UNIT/ML 1 ML VIAL SQ SCH ×2 (07:44→21:26)
[2019-05-04] MEDS: CYCLOBENZAPRINE 10 MG TAB PO SCH ×3 (07:44→21:25)
[2019-05-04] MEDS: FUROSEMIDE 10 MG/ML 2 ML VIAL IV SCH ×2 (07:44→21:26)
[2019-05-04] MEDS: ATORVASTATIN 40 MG TAB PO SCH (07:45)
[2019-05-04] MEDS: FERROUS SULFATE 325 MG TAB PO SCH ×2 (07:45→21:26)
[2019-05-04] MEDS: GABAPENTIN 400 MG CAP PO SCH ×2 (07:45→21:25)
[2019-05-04] MEDS: hydrOXYzine PAMOATE 25 MG CAP PO SCH ×2 (07:45→21:24)
[2019-05-04] MEDS: SPIRONOLACTONE 25 MG TAB PO SCH ×2 (07:45→21:25)
[2019-05-04] MEDS: BACITRACIN 500 UNIT/GM OINT 28.4 GM TUBE TOPICAL SCH (07:46)
[2019-05-04] MEDS: VERAPAMIL 80 MG TAB PO SCH ×3 (07:53→21:25)
--- NOTE | 2019-05-04 12:05 | PN ---
PROGRESS NOTE Mr. Purvis is a gentleman with cirrhosis of the liver, alcoholism, ascites. He also has atrial fibrillation, rapid ventricular rate. On the current medical regimen, his rate is better in the 90s. I am recommending a GI evaluation. Will decrease atorvastatin from 40-20 mg daily and increase metoprolol from 250 mg t.i.d. and based on clinical course we will make further recommendations. Physical exam revealed blood pressure 120/70, pulse rate is about 90, which is better irregular. JVD of 1 cm no carotid bruit S1-S2 heard normally short systolic murmur noted. Irregular rate and rhythm noted lungs reveal diminished breath sounds both bases. Abdomen revealed ascites and lower extremities reveal edema with diminished pulses. RECOMMENDATIONS: We will increase metoprolol to 50 mg t.i.d. and decrease atorvastatin to 20 mg daily and will seek GI evaluation. The patient has apparently quit drinking alcohol altogether. MMODL / IJN: [id number] /
--- NOTE | 2019-05-04 17:36 | P.PN ---
Subjective Progress Note Date: 05/04/19 54-year-old gentleman who has a known history of atrial fibrillation, COPD, DVT, GERD, hyperlipidemia, liver disease, liver cirrhosis, chronic EtOH abuse since he was a teenager; admitted to the hospital with atrial flutter and EtOH intoxication/withdrawal 05/04/2019 Patient is seen and evaluated in room at bedside; patient remains in atrial fibrillation with controlled heart rate in 90s; cardiology is following and recommending to increase metoprolol up to 50 mg 3 times a day and decrease atorvastatin to 20 mg daily; patient remains on CIWA protocol; does have history of alcoholic liver disease/ascites; we will consult GI for further recommendations Objective - Vital Signs Vital signs: Vital Signs Temp 98.1 F 05/04/19 11:15 Pulse 69 05/04/19 11:15 Resp 18 05/04/19 11:15 BP 111/82 05/04/19 11:15 Pulse Ox 92 L 05/04/19 11:15 Intake & Output 05/03/19 05/04/19 05/04/19 18:59 06:59 18:59 Intake Total 1669.00 50 Output Total 560 300 Balance 1109.00 -250 Weight 121 kg Intake: IV 70 cardizem 70 Intake, IV Titration 525.00 50 Amount Diltiazem 125 mg In 125.00 Sodium Chloride 0.9% 100 ml @ 10 MG/HR 10 mls/hr IV .[id number] [facility] Rx#: [id number] Magnesium Sulfate-D5w Pmx 300 1 gm In Dextrose/Water 1 100ml.bag @ 100 mls/hr IVPB Q1H [facility] Rx#: [id number] ceFAZolin 2 gm In Sodium 50 50 Chloride 0.9% 50 ml @ 100 mls/hr IVPB Q8HR [facility] Rx# :[id number] cefTRIAXone 1 gm In 50 Sodium Chloride 0.9% 50 ml @ 100 mls/hr IVPB HS [facility] Rx#:[id number] Oral 1074 Output: Urine 560 300 Other: Voiding Method Urinal Urinal Diaper Diaper # Voids 1 1 - Exam PHYSICAL EXAMINATION: GENERAL: The patient is alert and oriented x3, not in any acute distress. Well developed, well nourished. HEENT: Pupils are round and equally reacting to light. EOMI. No scleral icterus. No conjunctival pallor. Normocephalic, atraumatic. No pharyngeal erythema. No thyromegaly. CARDIOVASCULAR: S1 and S2 present. No murmurs, rubs, or gallops. PULMONARY: Chest is clear to auscultation, no wheezing or crackles. ABDOMEN: Soft, nontender, nondistended, normoactive bowel sounds. No palpable organomegaly. MUSCULOSKELETAL: No joint swelling or deformity. EXTREMITIES: No cyanosis, clubbing, or pedal edema. NEUROLOGICAL: Gross neurological examination did not reveal any focal deficits. SKIN: No rashes. - Labs CBC & Chem 7: 05/04/19 06:31 05/04/19 06:31 Labs: Abnormal Lab Results - Last 24 Hours (Table) 05/04/19 05/04/19 Range/Units 06:31 06:31 RBC 3.94 L (4.30-5.90) m/uL Hgb 11.0 L (13.0-17.5) gm/dL Hct 37.5 L (39.0-53.0) % MCHC 29.3 L (31.0-37.0) g/dL RDW 24.6 H (11.5-15.5) % Lymphocytes # 0.9 L (1.0-4.8) k/uL Sodium 136 L (137-145) mmol/L Chloride 97 L (98-107) mmol/L Carbon Dioxide 32 H (22-30) mmol/L Glucose 106 H (74-99) mg/dL Assessment and Plan Assessment: 1. EtOH intoxication/withdrawal 2. Atrial flutter with rapid ventricular response with 2-1 and varying block 3. Altered mental status/acute metabolic encephalopathy 4. Hypoxia/acute respiratory failure 5. Bilateral nodular lesions 6. Hyponatremia 7. Anemia possibly chronic disease 8. Foltx with multiple skin abrasions 9. COPD; not in exacerbation Patient remains on IV fluid hydration with CIWA protocol; patient is on empiric IV antibiotic therapy with cefazolin 2 g every 8 hours; blood cultures are obtained and pending; cardiology has seen patient and recommending to continue with IV Cardizem with plan to increase beta blockers in form of metoprolol up to 50 mg 3 times a day and decrease Lipitor; we will consult GI for further recommendations on alcoholic liver disease; pulmonary service to see patient for abnormal chest x-ray
--- NOTE | 2019-05-04 20:08 | CONS ---
CONSULTATION DATE OF DICTATION: May 04, 2019 REQUESTING PHYSICIAN: Dr. Zander Rice. REASON FOR CONSULTATION: Abdominal distention and history of alcoholic cirrhosis. HISTORY OF PRESENT ILLNESS: Patient is a 54-year-old pleasant white male with history of alcoholic cirrhosis of the liver diagnosed approximately 10 years ago, history of alcohol abuse, atrial fibrillation, and COPD, admitted to the hospital after he had a fall. He fell on his head and bruised his forehead. He became somewhat weak and tired and hence he was brought in to the emergency room by his family. He was subsequently noted to have an alcohol level of 167. He was admitted to the hospital for further evaluation. While in the hospital, patient was complaining of abdominal distention and hence we are consulted for possible ascites. The patient did have ultrasound of the abdomen done that did not show any evidence of fluid in the abdomen. He denies any abdominal pain. He reports no nausea or vomiting. No rectal bleeding or melena. He was seen on consultation a month ago for anemia. He was advised to have an outpatient EGD/colonoscopy. The last EGD colonoscopy according to the patient was about 5 years ago. He presently denies any rectal bleeding or melena. PAST MEDICAL HISTORY: Alcoholic cirrhosis of the liver, atrial fibrillation, COPD, DVT, GERD, hyperlipidemia, anxiety and depression. MEDICATIONS: At home, hydroxyzine, vitamin B1, Prilosec, Lopressor, Atrovent, gabapentin, Lasix, Diltiazem, Flexeril, Lipitor and Ventolin. ALLERGIES: TO CIPRO, FENTANYL, PENICILLIN, AND BACTRIM. FAMILY HISTORY: Some kind of cancer in father. SOCIAL HISTORY: Chronic smoker. Heavy alcohol abuse since age 13. REVIEW OF SYSTEMS: CARDIOPULMONARY: He denies any chest pain or shortness of breath. GENITOURINARY: No dysuria or hematuria. MUSCULOSKELETAL: Chronic back pain. NEUROLOGY unremarkable. PSYCHIATRIC: Anxiety and depression. ENT/vision unremarkable. CONSTITUTIONAL: No recent weight loss. No fever, chills, night sweats. HEMATOLOGY anemia. ENDOCRINE unremarkable. NEUROLOGY: Recent episode of fall following fatigue and weakness. CONSTITUTIONAL: No recent weight loss. No fever, chills, night sweats. PHYSICAL EXAMINATION: He appears comfortable. No apparent distress. VITAL SIGNS: Stable. Blood pressure is 131/86, pulse rate 69, temperature 98.1. HEENT examination unremarkable. Conjunctivae pink. Sclerae anicteric. Oral cavity no lesions. NECK: No JVD or lymph node enlargement. CHEST: Clear to auscultation. HEART: Regular rate and rhythm. ABDOMEN: Soft, it was slightly distended. It was obese, tympanic. No free fluid noted. EXTREMITIES no pedal edema. SKIN no rashes. NEUROLOGICAL: He is alert and oriented x3. No focal deficits. LABS: At the time of admission to the hospital: WBC 9.9, hemoglobin 11.8, platelets normal. Basic metabolic panel is within normal limits. AST, ALT, T-bilirubin and alkaline phosphatase are within normal limits. IMPRESSION: 1. Abdominal distention, but clinically no evidence of ascites. 2. Alcoholic cirrhosis of the liver which appears to be well compensated at the present time. 3. History of heavy alcohol abuse. 4. Normocytic anemia. RECOMMENDATIONS: Discussed with the patient abdominal ultrasound results. He was encouraged to abstain from alcohol. In regards to the mild anemia, most likely it is related to an underlying alcoholic liver cirrhosis. Clinically no evidence of active bleeding. I did recommend him to follow up in office following discharge from the hospital and we will schedule him for an outpatient EGD and colonoscopy. Thank you for this consultation. MMODL / IJN: [id number] /
[2019-05-05 06:19] LABS: Anisocytosis Moderate; HCT 41.1 % (39.0-53.0); HGB 11.5 gm/dL (13.0-17.5); Hypochromasia Marked; MCH 28.3 pg (25.0-35.0); MCHC 28.1 g/dL (31.0-37.0); Macrocytosis Marked; Mean Platelet Volume 7.2; Platelet Count 334 k/uL (150-450); RBC 4.08 m/uL (4.30-5.90); RDW 23.9 % (11.5-15.5)
[2019-05-05 06:20] LABS: MCV 100.7 fL (80.0-100.0)
[2019-05-05] MEDS: PANTOPRAZOLE 40 MG TABLET PO SCH (06:32)
[2019-05-05] MEDS: THIAMINE 100 MG TAB PO SCH ×2 (06:32→17:26)
[2019-05-05 06:47] LABS: African American GFR (CKD) >90 (>60 ml/min/1.73 sqM); Anion Gap 9 mmol/L; Blood Urea Nitrogen 19 mg/dL (9-20); Calcium 9.3 mg/dL (8.4-10.2); Carbon Dioxide 29 mmol/L (22-30); Chloride 95 mmol/L (98-107); Glucose 92 mg/dL (74-99); Non-African American GFR(CKD) 83 (>60 ml/min/1.73 sqM); Potassium 5.2 mmol/L (3.5-5.1); Sodium 133 mmol/L (137-145)
[2019-05-05] MEDS: FUROSEMIDE 10 MG/ML 2 ML VIAL IV SCH ×2 (08:32→20:15)
[2019-05-05] MEDS: FERROUS SULFATE 325 MG TAB PO SCH ×2 (08:33→20:13)
[2019-05-05] MEDS: METOPROLOL TARTRATE 50 MG TAB PO SCH ×3 (08:33→22:51)
[2019-05-05] MEDS: hydrOXYzine PAMOATE 25 MG CAP PO SCH ×2 (08:33→20:14)
[2019-05-05] MEDS: GABAPENTIN 400 MG CAP PO SCH ×2 (08:33→20:13)
[2019-05-05] MEDS: CYCLOBENZAPRINE 10 MG TAB PO SCH ×3 (08:33→22:51)
[2019-05-05] MEDS: VERAPAMIL 80 MG TAB PO SCH ×4 (08:33→22:51)
[2019-05-05] MEDS: HEPARIN SODIUM,PORCINE 5,000 UNIT/ML 1 ML VIAL SQ SCH ×2 (08:34→20:15)
[2019-05-05] MEDS: BACITRACIN 500 UNIT/GM OINT 28.4 GM TUBE TOPICAL SCH (08:34)
[2019-05-05] MEDS: ATORVASTATIN 20 MG TAB PO SCH (08:34)
[2019-05-05] MEDS ORDERED: VERAPAMIL 80 MG TAB PO STA (10:24)
[2019-05-05] MEDS: SPIRONOLACTONE 25 MG TAB PO SCH ×2 (10:33→20:14)
[2019-05-05] MEDS: MAGNESIUM SULFATE-D5W PMX 1 GM in DEXTROSE/WATER 1 100ML.BAG IVPB SCH ×2 (10:33→12:48)
[2019-05-05 10:53] LABS: Eosinophils # (M) 0.26 k/uL (0-0.7); Monocytes # (M) 0.77 k/uL (0-1.0); Neutrophils % (M) 77 %; Nucleated Red Blood Cells 1 /100 WBC (0-0); Total Cells Counted 200
[2019-05-05 10:54] LABS: Lymphocytes # (M) 1.02 k/uL (1.0-4.8); Neutrophils # (M) 6.55 k/uL (1.3-7.7); WBC 8.5 k/uL (3.8-10.6)
[2019-05-05 10:56] LABS: Polychromasia Present
[2019-05-05] MEDS: LORazepam 2 MG/ML INJ IV PRN (10:58)
--- NOTE | 2019-05-05 11:09 | P.PN ---
Subjective this is a pleasant 54-year-old male past medical history significant forcirrhosis of the liver, alcoholism, COPD, dyslipidemia and chronic nicotine dependence. He is currently being treated for new onset paroxysmal atrial fibrillation. Currently maintained on atorvastatin 20 mg daily, lasix 20 mg IV BID, metoprolol 50 mg TID, aldactone 50 mg BID and verapamil 80 mg TID. Laboratory data reviewed, WBC 8.6, hgb 11.5, plt 334, sodium 133, potassium 5.2, creatinine 1.01. He was seen by GI yesterday and outpatient endoscopy recommended. Blood pressure 116/83 heart rate 123. He denies chest pain, shortness of breath, dizziness or palpitations. Telemetry indicates ongoing atrial fibrillation with rate of 110-125. GENERAL: Well-appearing, well-nourished and in no acute distress. NECK: Supple without JVD or thyromegaly. LUNGS: Diminished bilaterally. Breath sounds clear to auscultation bilaterally. Respiration equal and unlabored. No wheezes, rales or rhonchi. HEART: Irregular rate and rhythm with systolic ejection murmur at the left sternal border, no rubs or gallops. S1 and S2 heard. EXTREMITIES: Normal range of motion, no edema. No clubbing or cyanosis. Peripheral pulses intact. ASSESSMENT Paroxysmal atrial fibrillation with rapid ventricular response, new onset Alcoholic cirrhosis COPD Dyslipidemia Chronic nicotine dependence PLAN Give additional dose of verpamil 80 mg now and increase to QID. If heart rate remains stable he may be discharged home. Nurse Practitioner note has been reviewed, I agree with a documented findings and plan of care. Patient was seen and examined. Objective - Vital Signs Vital signs: Vital Signs Temp 97.9 F 05/05/19 08:00 Pulse 123 H 05/05/19 08:00 Resp 20 05/05/19 08:00 BP 116/83 05/05/19 08:00 Pulse Ox 91 L 05/05/19 08:00 Intake & Output 05/04/19 05/05/19 05/05/19 18:59 06:59 18:59 Intake Total 420 290 Output Total 600 600 Balance -180 -310 Weight 121.1 kg Intake: Intake, IV Titration 50 Amount ceFAZolin 2 gm In Sodium 50 Chloride 0.9% 50 ml @ 100 mls/hr IVPB Q8HR [facility] Rx# :[id number] Oral 420 240 Output: Urine 600 600 Other: Voiding Method Urinal Urinal Diaper Diaper # Voids 1 - Labs CBC & Chem 7: 05/05/19 05:46 05/05/19 05:46 Labs: Abnormal Lab Results - Last 24 Hours (Table) 05/05/19 05/05/19 Range/Units 05:46 05:46 RBC 4.08 L (4.30-5.90) m/uL Hgb 11.5 L (13.0-17.5) gm/dL MCV 100.7 H D (80.0-100.0) fL MCHC 28.1 L (31.0-37.0) g/dL RDW 23.9 H (11.5-15.5) % Macrocytosis Marked A Sodium 133 L (137-145) mmol/L Potassium 5.2 H (3.5-5.1) mmol/L Chloride 95 L (98-107) mmol/L
--- NOTE | 2019-05-05 13:26 | PN ---
PROGRESS NOTE DATE OF SERVICE: May 05, 2019 The patient is a 54-year-old pleasant white male with a history of alcoholic cirrhosis of the liver diagnosed many years ago, admitted to the hospital with abdominal distention and recent fall. He did have ultrasound of the abdomen done yesterday that showed no evidence of ascites. He also has mild anemia with a stable hemoglobin of 11.5 gm/dL. He denies any abdominal pain. No nausea, vomiting. Tolerating breakfast well. PHYSICAL EXAMINATION: Appears comfortable, no apparent distress. VITAL SIGNS: Stable. Blood pressure 112/86, pulse rate 72, temperature 98.2. HEENT: Unremarkable. Conjunctivae pink. Sclerae anicteric. Oral cavity no lesions. NECK: No JVD or lymph node enlargement. CHEST: Clear clear to auscultation. HEART: Regular rate and rhythm. ABDOMEN: Obese. No free fluid noted. Nontender. Bowel sounds are positive. EXTREMITIES: No pedal edema SKIN: No rashes. NEUROLOGICAL: He is alert and oriented x3. No focal deficits. LABORATORY DATA: Labs from today: WBC 8.6, hemoglobin 11.5, platelets 334. Basic metabolic panel is within normal limits. IMPRESSION: 1. Alcoholic cirrhosis of the liver that appears to be well compensated. 2. Microcytic anemia. Clinically, no evidence of active bleeding. 3. Abdominal distention but no ascites on recent imaging studies. RECOMMENDATIONS: 1. Abstinence from alcohol. 2. Follow up in the office two weeks from now following discharge from the hospital and will consider an EGD and colonoscopy on an outpatient basis. 3. The patient can be discharged today from a GI point of view. Thank you for this consultation. MMODL / IJN: [id number] /
--- NOTE | 2019-05-05 14:08 | XR ---
EXAMINATION TYPE: XR chest 1V portable DATE OF EXAM: 05/05/2019 HISTORY: increased need for oxygen. REFERENCE: Previous study dated 05/02/2019. FINDINGS: There is a miliary pattern to the lungs. This is unchanged. Heart size is within normal lemos its. The study is mildly rotated. There is some platelike atelectasis in the left upper lobe. IMPRESSION: MILIARY PATTERN THROUGHOUT THE LUNGS MAY BE DUE TO OLD GRANULOMATOUS DISEASE. TUBERCULOSIS WOULD NEED TO BE EXCLUDED.
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
--- NOTE | 2019-05-05 16:14 | P.PN ---
Subjective Progress Note Date: 05/05/19 Principal diagnosis: Atrial fibrillation with RVR EtOH intoxication/withdrawal Dyspnea 54-year-old gentleman who has a known history of atrial fibrillation, COPD, DVT, GERD, hyperlipidemia, liver disease, liver cirrhosis, chronic EtOH abuse since he was a teenager; admitted to the hospital with atrial flutter and EtOH intoxication/withdrawal 05/04/2019 Patient is seen and evaluated in room at bedside; patient remains in atrial fibrillation with controlled heart rate in 90s; cardiology is following and recommending to increase metoprolol up to 50 mg 3 times a day and decrease atorvastatin to 20 mg daily; patient remains on CIWA protocol; does have history of alcoholic liver disease/ascites; we will consult GI for further recommendations 05/05/2019 Patient is seen and evaluated at bedside; was quite anxious and agitated earlier today with a CIWA score of 15; patient was given IV Ativan per protocol; I have started patient on Librium 20 mg by mouth 4 times a day along with CIWA protocol Cardiology has evaluated patient for paroxysmal atrial fibrillation; verapamil is increased to 80 mg 4 times a day; cardiology recommending discharge if heart rate remained stable Patient remains quite dyspneic requiring 5 L of oxygen; pulmonary has evaluated patient; chest x-ray with possible old granulomatous disease; recommending to titrate FiO2 to maintain O2 saturation greater than 90%; patient is started on bronchodilators and IV Solu-Medrol Patient has been evaluated by GI service and recommending follow-up as an outpatient for EtOH induced liver disease Objective - Vital Signs Vital signs: Vital Signs Temp 97.8 F 05/05/19 11:35 Pulse 95 05/05/19 11:35 Resp 20 05/05/19 11:35 BP 115/87 05/05/19 11:35 Pulse Ox 94 L 05/05/19 11:35 Intake & Output 05/04/19 05/05/19 05/05/19 18:59 06:59 18:59 Intake Total 420 290 Output Total 600 600 Balance -180 -310 Weight 121.1 kg Intake: Intake, IV Titration 50 Amount ceFAZolin 2 gm In Sodium 50 Chloride 0.9% 50 ml @ 100 mls/hr IVPB Q8HR [facility] Rx# :[id number] Oral 420 240 Output: Urine 600 600 Other: Voiding Method Urinal Urinal Urinal Diaper Diaper Diaper # Voids 1 - Exam PHYSICAL EXAMINATION: GENERAL: The patient is alert and oriented x3, not in any acute distress. Well developed, well nourished. HEENT: Pupils are round and equally reacting to light. EOMI. No scleral icterus. No conjunctival pallor. Normocephalic, atraumatic. No pharyngeal erythema. No thyromegaly. CARDIOVASCULAR: S1 and S2 present. No murmurs, rubs, or gallops. PULMONARY: Chest is clear to auscultation, no wheezing or crackles. ABDOMEN: Soft, nontender, nondistended, normoactive bowel sounds. No palpable organomegaly. MUSCULOSKELETAL: No joint swelling or deformity. EXTREMITIES: No cyanosis, clubbing, or pedal edema. NEUROLOGICAL: Gross neurological examination did not reveal any focal deficits. SKIN: No rashes. - Labs CBC & Chem 7: 05/05/19 05:46 05/05/19 05:46 Labs: Abnormal Lab Results - Last 24 Hours (Table) 05/05/19 05/05/19 Range/Units 05:46 05:46 RBC 4.08 L (4.30-5.90) m/uL Hgb 11.5 L (13.0-17.5) gm/dL MCV 100.7 H D (80.0-100.0) fL MCHC 28.1 L (31.0-37.0) g/dL RDW 23.9 H (11.5-15.5) % Nucleated RBCs 1 H (0-0) /100 WBC Macrocytosis Marked A Sodium 133 L (137-145) mmol/L Potassium 5.2 H (3.5-5.1) mmol/L Chloride 95 L (98-107) mmol/L Assessment and Plan Assessment: 1. EtOH intoxication/withdrawal 2. Atrial flutter with rapid ventricular response with 2-1 and varying block 3. Altered mental status/acute metabolic encephalopathy 4. Hypoxia/acute respiratory failure 5. Bilateral nodular lesions 6. Hyponatremia 7. Anemia possibly chronic disease 8. Foltx with multiple skin abrasions 9. COPD; not in exacerbation Patient remains on IV fluid hydration with CIWA protocol; patient is on empiric IV antibiotic therapy with cefazolin 2 g every 8 hours; blood cultures are obtained and pending; cardiology has seen patient and recommending to continue with IV Cardizem with plan to increase beta blockers in form of metoprolol up to 50 mg 3 times a day and decrease Lipitor; we will consult GI for further r ecommendations on alcoholic liver disease; pulmonary service to see patient for abnormal chest x-ray
[2019-05-05] MEDS: NICOTINE 21MG/24HR PATCH TRANSDERM SCH (16:15)
[2019-05-05] MEDS: IPRATROPIUM-ALBUTEROL 3 ML NEB INHALATION PRN (20:06)
[2019-05-06 06:21] LABS: African American GFR (CKD) >90 (>60 ml/min/1.73 sqM); Anion Gap 8 mmol/L; Blood Urea Nitrogen 20 mg/dL (9-20); Calcium 9.1 mg/dL (8.4-10.2); Carbon Dioxide 32 mmol/L (22-30); Chloride 95 mmol/L (98-107); Glucose 96 mg/dL (74-99); Magnesium 1.6 mg/dL (1.6-2.3); Non-African American GFR(CKD) 87 (>60 ml/min/1.73 sqM); Potassium 4.8 mmol/L (3.5-5.1); Sodium 135 mmol/L (137-145)
[2019-05-06] MEDS: LORazepam 2 MG/ML INJ IV PRN (06:38)
[2019-05-06 06:42] LABS: Anisocytosis Moderate; Basophils # (A) 0.1 k/uL (0-0.2); Basophils % (A) 1 %; Eosinophils # (A) 0.2 k/uL (0-0.7); Eosinophils % (A) 2 %; HCT 39.1 % (39.0-53.0); HGB 11.3 gm/dL (13.0-17.5); Hypochromasia Marked; Lymphocytes # (A) 1.3 k/uL (1.0-4.8); Lymphocytes % (A) 15 %; MCH 28.1 pg (25.0-35.0); MCHC 28.9 g/dL (31.0-37.0); MCV 97.1 fL (80.0-100.0); Macrocytosis Moderate; Monocytes # (A) 0.7 k/uL (0-1.0); Monocytes % (A) 8 %; Neutrophils # (A) 6.2 k/uL (1.3-7.7); Neutrophils % (A) 71 %; Platelet Count 327 k/uL (150-450); RBC 4.03 m/uL (4.30-5.90); RDW 23.4 % (11.5-15.5); WBC 8.7 k/uL (3.8-10.6)
[2019-05-06] MEDS: PANTOPRAZOLE 40 MG TABLET PO SCH ×2 (06:53→07:49)
[2019-05-06] MEDS: THIAMINE 100 MG TAB PO SCH ×2 (06:53→15:47)
[2019-05-06] MEDS: IPRATROPIUM-ALBUTEROL 3 ML NEB INHALATION PRN ×2 (07:47→19:52)
[2019-05-06] MEDS: VERAPAMIL 80 MG TAB PO SCH ×4 (07:48→21:55)
[2019-05-06] MEDS: ATORVASTATIN 20 MG TAB PO SCH (07:48)
[2019-05-06] MEDS: GABAPENTIN 400 MG CAP PO SCH ×2 (07:49→21:54)
[2019-05-06] MEDS: hydrOXYzine PAMOATE 25 MG CAP PO SCH ×2 (07:49→21:54)
[2019-05-06] MEDS: METOPROLOL TARTRATE 50 MG TAB PO SCH ×3 (07:49→21:54)
[2019-05-06] MEDS: NICOTINE 21MG/24HR PATCH TRANSDERM SCH (07:51)
[2019-05-06] MEDS: BACITRACIN 500 UNIT/GM OINT 28.4 GM TUBE TOPICAL SCH (07:53)
[2019-05-06] MEDS: HEPARIN SODIUM,PORCINE 5,000 UNIT/ML 1 ML VIAL SQ SCH ×2 (07:54→21:55)
[2019-05-06] MEDS: FERROUS SULFATE 325 MG TAB PO SCH ×2 (07:55→21:55)
[2019-05-06] MEDS: CYCLOBENZAPRINE 10 MG TAB PO SCH ×3 (07:55→21:54)
[2019-05-06] MEDS: FUROSEMIDE 10 MG/ML 2 ML VIAL IV SCH (07:56)
[2019-05-06] MEDS: SPIRONOLACTONE 25 MG TAB PO SCH ×2 (07:57→21:54)
[2019-05-06] MEDS: MAGNESIUM SULFATE-D5W PMX 1 GM in DEXTROSE/WATER 1 100ML.BAG IVPB SCH ×2 (09:24→10:31)
--- NOTE | 2019-05-06 12:00 | P.PN ---
Subjective This is a pleasant 54-year-old male past medical history significant forcirrhosis of the liver, alcoholism, COPD, dyslipidemia and chronic nicotine dependence. He is seen and examined sitting up eating breakfast in no acute distress. HEENT denies symptoms of chest pain, shortness of breath, dizziness or palpitations. Blood pressure 108/70 heart rate 110. He continues to be in atrial fibrillation. Currently maintained on atorvastatin 20 mg daily, Lasix 20 mg IV twice a day per primary care team, metoprolol 50 mg 3 times a day, A ldactone 50 mg twice a day and verapamil 80 mg 4 times a day. Laboratory data reviewed, WBC 8.7, hemoglobin 11.3, platelets 327, sodium 135, potassium 4.8, creatinine 0.90 and magnesium 1.6. Repeat chest x-ray ordered yesterday reveals a miliary pattern throughout the lungs secondary to old granulomatous disease, tuberculosis to be ruled out. He has been seen by pulmonary care team and they have added bronchodilators and IV Solu-Medrol. GENERAL: Well-appearing, well-nourished and in no acute distress. NECK: Supple without JVD or thyromegaly. LUNGS: Diminished bilaterally. Breath sounds clear to auscultation bilaterally. Respiration equal and unlabored. No wheezes, rales or rhonchi. HEART: Irregular rate and rhythm with systolic ejection murmur at the left sternal border, no rubs or gallops. S1 and S2 heard. EXTREMITIES: Normal range of motion, no edema. No clubbing or cyanosis. Per ipheral pulses intact. ASSESSMENT Paroxysmal atrial fibrillation with rapid ventricular response, new onset Alcoholic cirrhosis COPD Dyslipidemia Chronic nicotine dependence PLAN Stable from a cardiac perspective. Continue on current rate control regimen. 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 Recommend PO lasix 20 mg BID. Follow up in the office with Dr. Hutchinson in 2 weeks. We will follow as needed. Nurse Practitioner note has been reviewed, I agree with a documented findings and plan of care. Patient was seen and examined. Objective - Vital Signs Vital signs: Vital Signs Temp 97.5 F L 05/06/19 08:00 Pulse 110 H 05/06/19 08:00 Resp 16 05/06/19 08:00 BP 108/70 05/06/19 08:00 Pulse Ox 98 05/06/19 08:00 Intake & Output 05/05/19 05/06/19 05/06/19 18:59 06:59 18:59 Intake Total 1190 240 360 Output Total 600 900 Balance 590 -660 360 Weight 122.3 kg Intake: IV 100 ceFAZolin 2 gm In Sodium 100 Chloride 0.9% 50 ml @ 100 mls/hr IVPB Q8HR [facility] Rx# :[id number] Intake, IV Titration 250 Amount Magnesium Sulfate-D5w Pmx 200 1 gm In Dextrose/Water 1 100ml.bag @ 100 mls/hr IVPB Q1H [facility] Rx#: [id number] ceFAZolin 2 gm In Sodium 50 Chloride 0.9% 50 ml @ 100 mls/hr IVPB Q8HR [facility] Rx# :[id number] Oral 840 240 360 Output: Urine 600 900 Other: Voiding Method Toilet Toilet Toilet Urinal Urinal Urinal # Voids 1 # Bowel Movements 1 - Labs CBC & Chem 7: 05/06/19 05:25 05/06/19 05:25 Labs: Abnormal Lab Results - Last 24 Hours (Table) 05/05/19 05/06/19 05/06/19 Range/Units 05:46 05:25 05:25 RBC 4.03 L (4.30-5.90) m/uL Hgb 11.3 L (13.0-17.5) gm/dL MCHC 28.9 L (31.0-37.0) g/dL RDW 23.4 H (11.5-15.5) % Nucleated RBCs 1 H (0-0) /100 WBC Sodium 135 L (137-145) mmol/L Chloride 95 L (98-107) mmol/L Carbon Dioxide 32 H (22-30) mmol/L
--- NOTE | 2019-05-06 13:18 | P.PN ---
Subjective Progress Note Date: 05/06/19 Principal diagnosis: Fall secondary to alcohol intoxication. COPD exacerbation. A 54-year-old gentleman with a known history of alcoholism with daily and ongoing drinking. He presented here to the emergency room on 05/02/2019 after sustaining a fall. He was quite intoxicated. He was also found to be in atrial fibrillation with a rapid ventricular response. Serum alcohol level 160. Has a history of DVT, atrial fibrillation, obesity, and ongoing tobacco dependence, morbid obesity. He is seen today in consultation for his suspected COPD. Earlier today he developed restlessness anxiety agitation and was given Ativan and eventually Librium. He is currently arousable but hypoxic requiring 5 L high flow nasal cannula. X-ray shows old granulomatous disease. The patient is seen today 05/06/2019 in follow-up in the regular medical floor. He is awake and alert in no acute distress. Sitting up at the bedside. He is somewhat agitated and disoriented at times. Walking down the hallway naked. 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 Family is currently at the bedside. His breathing is improved today compared to yesterday. He is more awake and alert. Continue O2 saturation in the 90s on 5 L nasal cannula. Continued on bronchodilators. Objective - Vital Signs Vital signs: Vital Signs Temp 97.1 F L 05/06/19 10:49 Pulse 88 05/06/19 11:59 Resp 20 05/06/19 11:59 BP 102/75 05/06/19 11:59 Pulse Ox 95 05/06/19 11:59 Intake & Output 05/05/19 05/06/19 05/06/19 18:59 06:59 18:59 Intake Total 1190 240 610 Output Total 600 900 Balance 590 -660 610 Weight 122.3 kg Intake: IV 100 50 ceFAZolin 2 gm In Sodium 100 50 Chloride 0.9% 50 ml @ 100 mls/hr IVPB Q8HR [facility] Rx# :[id number] Intake, IV Titration 250 200 Amount Magnesium Sulfate-D5w Pmx 200 1 gm In Dextrose/Water 1 100ml.bag @ 100 mls/hr IVPB Q1H [facility] Rx#: [id number] Magnesium Sulfate-D5w Pmx 200 1 gm In Dextrose/Water 1 100ml.bag @ 100 mls/hr IVPB Q1H [facility] Rx#: [id number] ceFAZolin 2 gm In Sodium 50 Chloride 0.9% 50 ml @ 100 mls/hr IVPB Q8HR [facility] Rx# :[id number] Oral 840 240 360 Output: Urine 600 900 Other: Voiding Method Toilet Toilet Toilet Urinal Urinal Urinal # Voids 1 # Bowel Movements 1 - Exam GENERAL EXAM: Awake, alert 54-year-old gentleman, agitated at times, on 5 L nasal cannula, morbidly obese 54-year-old gentleman. HEAD: Normocephalic. EYES: Normal reaction of pupils, equal size. NOSE: Clear with pink turbinates. THROAT: No erythema or exudates. NECK: No masses, no JVD. CHEST: No chest wall deformity. LUNGS: Equal air entry with end expiratory wheeze, diminished. CVS: S1 and S2 normal with no audible murmur, regular rhythm. ABDOMEN: No hepatosplenomegaly, normal bowel sounds, no guarding or rigidity. SPINE: No scoliosis or deformity SKIN: No rashes CENTRAL NERVOUS SYSTEM: No focal deficits, tone is normal in all 4 extremities. EXTREMITIES: There is no peripheral edema. No clubbing, no cyanosis. Peripheral pulses are intact. - Labs CBC & Chem 7: 05/06/19 05:25 05/06/19 05:25 Labs: Abnormal Lab Results - Last 24 Hours (Table) 05/06/19 05/06/19 Range/Units 05:25 05:25 RBC 4.03 L (4.30-5.90) m/uL Hgb 11.3 L (13.0-17.5) gm/dL MCHC 28.9 L (31.0-37.0) g/dL RDW 23.4 H (11.5-15.5) % Sodium 135 L (137-145) mmol/L Chloride 95 L (98-107) mmol/L Carbon Dioxide 32 H (22-30) mmol/L Assessment and Plan Assessment: 1 Falls secondary to intoxication and some concern regarding alcohol withdrawal syndrome. 2 Atrial fibrillation with rapid ventricular response, not on anticoagulants due to frequent falls and medication compliance 3 Chronic and ongoing tobacco dependence suspect some component of chronic obstructive pulmonary disease 4 Liver cirrhosis. 5 Normocytic anemia 6 History of DVT 7 Hyperlipidemia. 8 Chronic alcohol abuse with pending DTs Plan: The patient was seen and evaluated by Dr. Donaldson, chest x-ray reviewed suspect old granulomatous disease Titrate FiO2 to maintain O2 saturations greater than 90% Continue CIWA protocol Continue bronchodilators No anticoagulants due to the patient's history of frequent falls and intoxication poor compliance Continue to monitor him here in the selective care unit. We'll continue to follow. I, the cosigning physician, performed a history & physical examination of the patient. Lungs sounds bilateral end expiratory wheeze, diminished Maintaining good O2 saturations in the 90s on 5 L/m per nasal cannula. I discussed the assessment and plan of care with my nurse practitioner, Duyen Hines. I attest to the above note as dictated by her.
--- NOTE | 2019-05-06 15:04 | P.PN ---
Subjective Progress Note Date: 05/06/19 Principal diagnosis: Atrial fibrillation with RVR EtOH intoxication/withdrawal Dyspnea 54-year-old gentleman who has a known history of atrial fibrillation, COPD, DVT, GERD, hyperlipidemia, liver disease, liver cirrhosis, chronic EtOH abuse since he was a teenager; admitted to the hospital with atrial flutter and EtOH intoxication/withdrawal 05/04/2019 Patient is seen and evaluated in room at bedside; patient remains in atrial fibrillation with controlled heart rate in 90s; cardiology is following and recommending to increase metoprolol up to 50 mg 3 times a day and decrease atorvastatin to 20 mg daily; patient remains on CIWA protocol; does have history of alcoholic liver disease/ascites; we will consult GI for further recommendations 05/05/2019 Patient is seen and evaluated at bedside; was quite anxious and agitated earlier today with a CIWA score of 15; patient was given IV Ativan per protocol; I have started patient on Librium 20 mg by mouth 4 times a day along with CIWA protocol Cardiology has evaluated patient for paroxysmal atrial fibrillation; verapamil is increased to 80 mg 4 times a day; cardiology recommending discharge if heart rate remained stable Patient remains quite dyspneic requiring 5 L of oxygen; pulmonary has evaluated patient; chest x-ray with possible old granulomatous disease; recommending to titrate FiO2 to maintain O2 saturation greater than 90%; patient is started on bronchodilators and IV Solu-Medrol Patient has been evaluated by GI service and recommending follow-up as an outpatient for EtOH induced liver disease 05/06/2019 Patient is seen and evaluated for follow-up; remains on selective care unit; patient was more agitated and disoriented earlier this morning and was walking down the hallway naked; remains on IV Ativan per CIWA protocol; somewhat more awake and alert at the time of my exam; we will continue with current dose of Li brium and possibly start tapering off in next 24 hours; patient remains on O2 5 L per nasal cannula keeping SpO2 greater than 92%; pulmonary service is following and recommending to continue with current bronchodilator therapy; we will continue with IV fluids, thiamine and folic acid; continue with current dose of Librium and Ativan per CIWA protocol; patient will follow-up with GI as an outpatient for EtOH induced liver disease Objective - Vital Signs Vital signs: Vital Signs Temp 97.1 F L 05/06/19 10:49 Pulse 75 05/06/19 10:49 Resp 20 05/06/19 10:49 BP 121/80 05/06/19 10:49 Pulse Ox 91 L 05/06/19 10:49 Intake & Output 05/05/19 05/06/19 05/06/19 18:59 06:59 18:59 Intake Total 1190 240 610 Output Total 600 900 Balance 590 -660 610 Weight 122.3 kg Intake: IV 100 50 ceFAZolin 2 gm In Sodium 100 50 Chloride 0.9% 50 ml @ 100 mls/hr IVPB Q8HR [facility] Rx# :[id number] Intake, IV Titration 250 200 Amount Magnesium Sulfate-D5w Pmx 200 1 gm In Dextrose/Water 1 100ml.bag @ 100 mls/hr IVPB Q1H [facility] Rx#: [id number] Magnesium Sulfate-D5w Pmx 200 1 gm In Dextrose/Water 1 100ml.bag @ 100 mls/hr IVPB Q1H [facility] Rx#: [id number] ceFAZolin 2 gm In Sodium 50 Chloride 0.9% 50 ml @ 100 mls/hr IVPB Q8HR [facility] Rx# :[id number] Oral 840 240 360 Output: Urine 600 900 Other: Voiding Method Toilet Toilet Toilet Urinal Urinal Urinal # Voids 1 # Bowel Movements 1 - Exam PHYSICAL EXAMINATION: GENERAL: The patient is alert and oriented x3, not in any acute distress. Well developed, well nourished. HEENT: Pupils are round and equally reacting to light. EOMI. No scleral icterus. No conjunctival pallor. Normocephalic, atraumatic. No pharyngeal erythema. No thyromegaly. CARDIOVASCULAR: S1 and S2 present. No murmurs, rubs, or gallops. PULMONARY: Chest is clear to auscultation, no wheezing or crackles. ABDOMEN: Soft, nontender, nondistended, normoactive bowel sounds. No palpable organomegaly. MUSCULOSKELETAL: No joint swelling or deformity. EXTREMITIES: No cyanosis, clubbing, or pedal edema. NEUROLOGICAL: Gross neurological examination did not reveal any focal deficits. SKIN: No rashes. - Labs CBC & Chem 7: 05/06/19 05:25 05/06/19 05:25 Labs: Abnormal Lab Results - Last 24 Hours (Table) 05/06/19 05/06/19 Range/Units 05:25 05:25 RBC 4.03 L (4.30-5.90) m/uL Hgb 11.3 L (13.0-17.5) gm/dL MCHC 28.9 L (31.0-37.0) g/dL RDW 23.4 H (11.5-15.5) % Sodium 135 L (137-145) mmol/L Chloride 95 L (98-107) mmol/L Carbon Dioxide 32 H (22-30) mmol/L Assessment and Plan Assessment: 1. EtOH intoxication/withdrawal 2. Atrial flutter with rapid ventricular response with 2-1 and varying block 3. Altered mental status/acute metabolic encephalopathy 4. Hypoxia/acute respiratory failure 5. Bilateral nodular lesions 6. Hyponatremia 7. Anemia possibly chronic disease 8. Foltx with multiple skin abrasions 9. COPD; not in exacerbation Patient remains on IV fluid hydration with CIWA protocol; patient is on empiric IV antibiotic therapy with cefazolin 2 g every 8 hours; blood cultures are obtained and pending; cardiology has seen patient and recommending to continue w ith IV Cardizem with plan to increase beta blockers in form of metoprolol up to 50 mg 3 times a day and decrease Lipitor; we will consult GI for further recommendations on alcoholic liver disease; pulmonary service to see patient for abnormal chest x-ray
[2019-05-06] MEDS: FUROSEMIDE 20 MG TAB PO SCH (15:47)
[2019-05-06 20:29] LABS: ABG Base Excess 5.3 mmol/L; ABG HCO3 31 mmol/L (21-25); ABG Oxygen Saturation 89.8 % (94-97); ABG PCO2 57 mmHg (35-45); ABG PH 7.35 (7.35-7.45); ABG PO2 66 mmHg (83-108); ABG TCO2 33 mmol/L (19-24); Allen Test Performed? Yes
--- NOTE | 2019-05-06 20:42 | XR ---
EXAMINATION TYPE: XR chest 1V portable DATE OF EXAM: 05/06/2019 COMPARISON: Yesterday HISTORY: Short of breath TECHNIQUE: Single view FINDINGS: Heart is borderline enlarged. There is no heart failure. There is calcific density througho ut the lungs consistent with old granulomatous disease. There is no pleural effusion. There are chest leads. Bony thorax is intact. IMPRESSION: Old granulomatous disease. No definite acute lung disease. No change compared to yesterda y. No obvious heart failure.
--- NOTE | 2019-05-06 21:24 | CT ---
EXAMINATION TYPE: CT angio chest DATE OF EXAM: 05/06/2019 COMPARISON: 03/30/2013 HISTORY: Elevated d-dimer, SOB CT DLP: 654 mGycm Automated exposure control for dose reduction was used. CONTRAST: Performed with IV Contrast, patient injected with 80 mL of Isovue 370. There are 3-D post processed images. There is patchy linear density in both lungs consistent with patchy scarring and subsegmental atelect asis. There is small right pleural effusion. Heart is top normal in size. There is no pericardial eff usion. There is normal contrast opacification of the pulmonary arteries. There are no filling defects. There are no filling defects. There are a few mediastinal lymph nodes that measure up to 1 cm. There are r ight bronchial lymph nodes up to 1 cm. There are old right side rib fractures. IMPRESSION: Patchy infiltrates and atelectasis and scarring in both lungs. Numerous scattered peripheral small pu lmonary nodules consistent with granulomatous disease. There is progression of the lung disease stephen red to old exam. No evidence of pulmonary embolism.
[2019-05-06] MEDS ORDERED: methylPREDNISolone SOD SUCCI 125 MG/2 ML VIAL IV STA (21:33)
[2019-05-06] MEDS ORDERED: FUROSEMIDE 10 MG/ML 4 ML VIAL IV STA (21:34)
[2019-05-06] MEDS ORDERED: VANCOMYCIN IV PER PHARMACY 1 EACH MISC MISCELLANE PRN (21:35)
[2019-05-06] MEDS ORDERED: VANCOMYCIN 2,000 MG in SODIUM CHLORIDE 0.9% 500 ML 500 ML IVPB ONE (22:00)
[2019-05-07] MEDS: IPRATROPIUM-ALBUTEROL 3 ML NEB INHALATION SCH ×4 (02:48→20:18)
[2019-05-07] MEDS: PANTOPRAZOLE 40 MG TABLET PO SCH (06:27)
[2019-05-07] MEDS: THIAMINE 100 MG TAB PO SCH ×2 (06:27→17:23)
[2019-05-07] MEDS: methylPREDNISolone SOD SUCCI 125 MG/2 ML VIAL IV SCH ×3 (06:27→20:40)
[2019-05-07 06:31] LABS: Anisocytosis Moderate; Basophils # (A) 0.1 k/uL (0-0.2); Basophils % (A) 1 %; Eosinophils % (A) 0 %; HCT 40.1 % (39.0-53.0); HGB 11.5 gm/dL (13.0-17.5); Hypochromasia Marked; Lymphocytes # (A) 0.4 k/uL (1.0-4.8); Lymphocytes % (A) 5 %; MCH 27.7 pg (25.0-35.0); MCHC 28.7 g/dL (31.0-37.0); MCV 96.5 fL (80.0-100.0); Macrocytosis Moderate; Mean Platelet Volume 7.1; Monocytes # (A) 0.1 k/uL (0-1.0); Monocytes % (A) 2 %; Neutrophils % (A) 92 %; Platelet Count 293 k/uL (150-450); RBC 4.15 m/uL (4.30-5.90); RDW 23.9 % (11.5-15.5); WBC 7.6 k/uL (3.8-10.6)
[2019-05-07 06:41] LABS: African American GFR (CKD) >90 (>60 ml/min/1.73 sqM); Anion Gap 8 mmol/L; Blood Urea Nitrogen 21 mg/dL (9-20); Calcium 9.3 mg/dL (8.4-10.2); Carbon Dioxide 32 mmol/L (22-30); Chloride 93 mmol/L (98-107); Glucose 126 mg/dL (74-99); Magnesium 1.5 mg/dL (1.6-2.3); Non-African American GFR(CKD) 88 (>60 ml/min/1.73 sqM); Potassium 5.5 mmol/L (3.5-5.1); Sodium 133 mmol/L (137-145)
--- NOTE | 2019-05-07 08:35 | P.PN ---
Subjective per records: 54-year-old gentleman who has a known history of atrial fibrillation, COPD, DVT, GERD, hyperlipidemia, liver disease, liver cirrhosis, chronic EtOH abuse since he was a teenager; admitted to the hospital with atrial flutter and EtOH intoxication/withdrawal 05/04/2019 Patient is seen and evaluated in room at bedside; patient remains in atrial fibrillation with controlled heart rate in 90s; cardiology is following and recommending to increase metoprolol up to 50 mg 3 times a day and decrease elizabet rvastatin to 20 mg daily; patient remains on CIWA protocol; does have history of alcoholic liver disease/ascites; we will consult GI for further recommendations 05/05/2019 Patient is seen and evaluated at bedside; was quite anxious and agitated earlier today with a CIWA score of 15; patient was given IV Ativan per protocol; I have started patient on Librium 20 mg by mouth 4 times a day along with CIWA protocol Cardiology has evaluated patient for paroxysmal atrial fibrillation; verapamil is increased to 80 mg 4 times a day; cardiology recommending discharge if heart rate remained stable Patient remains quite dyspneic requiring 5 L of oxygen; pulmonary has evaluated patient; chest x-ray with possible old granulomatous disease; recommending to titrate FiO2 to maintain O2 saturation greater than 90%; patient is started on bronchodilators and IV Solu-Medrol Patient has been evaluated by GI service and recommending follow-up as an outpatient for EtOH induced liver disease 05/06/2019 Patient is seen and evaluated for follow-up; remains on selective care unit; patient was more agitated and disoriented earlier this morning and was walking down the hallway naked; remains on IV Ativan per CIWA protocol; somewhat more awake and alert at the time of my exam; we will continue with current dose of Librium and possibly start tapering off in next 24 hours; patient remains on O2 5 L per nasal cannula keeping SpO2 greater than 92%; pulmonary service is following and recommending to continue with current bronchodilator therapy; we will continue with IV fluids, thiamine and folic acid; continue with current dose of Librium and Ativan per CIWA protocol; patient will follow-up with GI as an outpatient for EtOH induced liver disease Subjective: 05/07/2019 Patient is seen and examined by me for first time today. Patient is a pleasant 54 years old male, obese who presents with a fall related to his alcohol intoxication. Patient drinks 6 beers per day and smokes 1 pack per day, no illicit tracts. He he feels generally weak, today he is awake and alert 3, no signs of alcohol withdrawal or delirium tremens however remains on CIWA protocol and on Librium 25 mg by mouth every 8 hours. Also is on 6 L of oxygen via nasal cannula and he is saturating high 80s-low 90s, patient is not on home oxygen. CTA of the chest showing patchy infiltrates and atelectasis with numerous peripheral pulmonary nodule consistent with a granulomatous disease, pulmonary progressive disease. No pulmonary embolism. MAPS checked today shows he was not on [place], Librium, Ativan or benzodiazepine., However he was on gabapentin 600 mg 4 times a day. Patient couldn't walk to the bathroom with little difficulty. He denies exertional dyspnea. However he has cough and yellowish/clear phlegm. No chest pain. Patient remains on cefazolin, IV vancomycin, Librium and Ativan when necessary, Enrique is on solu-Medrol 60 mg PT/OT recommended home health care Review of systems CONSTITUTIONAL: No fever, no malaise, no fatigue. HEENT: No recent visual problems or hearing problems. Denied any sore throat. CARDIOVASCULAR: No orthopnea, PND, no palpitations, no syncope. PULMONARY: no hemoptysis. GASTROINTESTINAL: No diarrhea, no nausea, no vomiting, no abdominal pain. Normoactive bowel sounds. NEUROLOGICAL: No headaches, no weakness, no numbness. HEMATOLOGICAL: Denies any bleeding or petechiae. GENITOURINARY: Denies any burning micturition, frequency, or urgency. MUSCULOSKELETAL/RHEUMATOLOGICAL: Denies any joint pain, swelling, or any muscle pain. ENDOCRINE: Denies any polyuria or polydipsia. Active Medications Generic Name Dose Route Start Last Admin Trade Name Freq PRN Reason Stop Dose Admin Hydrocodone Bitart/Acetaminophen 1 each 05/02/19 19:45 05/03/19 23:02 [place] 5-325 PO 1 each Q6HR PRN Administration Pain Albuterol/Ipratropium 3 ml 05/03/19 02:00 05/06/19 19:52 Duone[place] 0.5 Mg-3 Mg/3 Ml Soln INHALATION 3 ml RT-Q6H PRN Administration Shortness Of Breath Albuterol/Ipratropium 3 ml 05/07/19 02:00 05/07/19 07:20 Duoneb 0.5 Mg-3 Mg/3 Ml Soln INHALATION 3 ml RT-Q6H [facility] Administration Atorvastatin Calcium 20 mg 05/05/19 09:00 05/06/19 07:48 Lipitor PO 20 mg DAILY [facility] Administration Bacitracin 1 applic 05/04/19 09:00 05/06/19 07:53 Bacitracin Oint TOPICAL 1 applic DAILY [facility] Administration Chlordiazepoxide HCl 25 mg 05/07/19 09:00 Librium PO TID [facility] Cyclobenzaprine HCl 10 mg 05/02/19 22:00 05/06/19 21:54 Flexeril PO 10 mg TID [facility] Administration Ferrous Sulfate 325 mg 05/02/19 21:00 05/06/19 21:55 Feosol PO 325 mg BID [facility] Administration Furosemide 20 mg 05/06/19 16:00 05/06/19 15:47 Lasix PO 20 mg BID@0900,1600 [facility] Administration Gabapentin 1,200 mg 05/02/19 21:00 05/06/19 21:54 Neurontin PO 1,200 mg BID [facility] Administration Heparin Sodium (Porcine) 5,000 unit 05/03/19 21:00 05/06/19 21:55 Heparin SQ 5,000 unit Q12HR [facility] Administration Hydroxyzine Pamoate 50 mg 05/02/19 21:00 05/06/19 21:54 Vistaril PO 50 mg HS [facility] Administration Hydroxyzine Pamoate 25 mg 05/03/19 09:00 05/06/19 07:49 Vistaril PO 25 mg QAM [facility] Administration Cefazolin Sodium 2 gm/ Sodium 50 mls @ 100 mls/hr 05/03/19 16:00 05/07/19 08:12 Chloride IVPB 100 mls/hr Q8HR [facility] Administration Vancomycin HCl 2,000 mg/ 500 mls @ 167 mls/hr 05/07/19 11:00 Sodium Chloride IVPB Q12H [facility] Meropenem 1 gm/ Sodium 100 mls @ 200 mls/hr 05/07/19 08:00 Chloride IVPB Q8HR [facility] Protocol Magnesium Sulfate/Dextrose 1 100 mls @ 100 mls/hr 05/07/19 08:00 gm/ IV Solution IVPB 05/07/19 09:59 Q1H [facility] Lorazepam 1 mg 05/02/19 16:25 05/03/19 02:44 Ativan IV 1 mg Q2HR PRN Administration CIWA 8 or 9 Lorazepam 1 mg 05/02/19 16:25 05/06/19 06:38 Ativan IV 1 mg Q1HR PRN Administration CIWA 10 to 15 Methylprednisolone Sodium Succinate 60 mg 05/07/19 06:00 05/07/19 06:27 Solu-Medrol IV 60 mg Q8H [facility] Administration Metoprolol Tartrate 50 mg 05/04/19 16:00 05/06/19 21:54 Lopressor PO 50 mg TID [facility] Administration Miscellaneous Information 1 each 05/03/19 10:11 Magnesium Per Protocol MISCELLANE DAILY PRN Per Protocol Protocol Miscellaneous Information 1 each 05/03/19 12:01 Magnesium Per Protocol MISCELLANE DAILY PRN Per Protocol Protocol Naloxone HCl 0.2 mg 05/02/19 16:30 Narcan IV Q2M PRN Opioid Reversal Nicotine 1 patch 05/05/19 16:15 05/06/19 07:51 Habitrol 21mg/24hr Patch TRANSDERM 1 patch DAILY [facility] Administration Pantoprazole Sodium 40 mg 05/04/19 07:30 05/07/19 06:27 Protonix PO 40 mg [id number] [facility] Administration Spironolactone 50 mg 05/02/19 21:00 05/06/19 21:54 Aldactone PO 50 mg BID [facility] Administration Thiamine HCl 100 mg 05/03/19 07:30 05/07/19 06:27 Vitamin B-1 PO 100 mg BID-W/MEALS [facility] Administration Verapamil HCl 80 mg 05/05/19 13:00 05/06/19 21:55 Isoptin PO 80 mg QID [facility] Administration Objective - Vital Signs Vital signs: Vital Signs Temp 98 F 05/07/19 00:00 Pulse 92 05/07/19 07:32 Resp 20 05/07/19 04:00 BP 115/84 05/07/19 04:00 Pulse Ox 93 L 05/07/19 04:00 Intake & Output 05/06/19 05/07/19 05/07/19 18:59 06:59 18:59 Intake Total 1330 Output Total 600 Balance 1330 -600 Weight 123.6 kg Intake: IV 50 ceFAZolin 2 gm In Sodium 50 Chloride 0.9% 50 ml @ 100 mls/hr IVPB Q8HR [facility] Rx# :[id number] Intake, IV Titration 200 Amount Magnesium Sulfate-D5w Pmx 200 1 gm In Dextrose/Water 1 100ml.bag @ 100 mls/hr IVPB Q1H [facility] Rx#: [id number] Oral 1080 Output: Urine 480 Stool 120 Other: Voiding Method Toilet Toilet Urinal Urinal # Voids 2 # Bowel Movements 1 - Exam -GENERAL: The patient is alert and oriented x3, not in any acute distress. Obese HEENT: Pupils are round and equally reacting to light. EOMI. No scleral icterus. No conjunctival pallor. Normocephalic, atraumatic. No pharyngeal erythema. No thyromegaly. CARDIOVASCULAR: S1 and S2 present. No murmurs, rubs, or gallops. -PULMONARY: Chest is clear to auscultation, decreased air entry on both sides. No obvious wheezing or crackles -ABDOMEN: Soft, nontender, distended due to fat (ultrasound showed no ascites), normoactive bowel sounds. No palpable organomegaly. MUSCULOSKELETAL: No joint swelling or deformity. EXTREMITIES: No cyanosis, clubbing, or pedal edema. NEUROLOGICAL: Gross neurological examination did not reveal any focal deficits. SKIN: No rashes. no petechiae. - Labs CBC & Chem 7: 05/07/19 05:48 05/07/19 05:48 Labs: Abnormal Lab Results - Last 24 Hours (Table) 05/06/19 05/06/19 05/07/19 Range/Units 20:09 20:10 05:48 RBC 4.15 L (4.30-5.90) m/uL Hgb 11.5 L (13.0-17.5) gm/dL MCHC 28.7 L (31.0-37.0) g/dL RDW 23.9 H (11.5-15.5) % Lymphocytes # 0.4 L (1.0-4.8) k/uL D-Dimer 2.17 H (<0.60) mg/L FEU ABG pCO2 57 H (35-45) mmHg ABG pO2 66 L (83-108) mmHg ABG HCO3 31 H (21-25) mmol/L ABG Total CO2 33 H (19-24) mmol/L ABG O2 Saturation 89.8 L (94-97) % Sodium (137-145) mmol/L Potassium (3.5-5.1) mmol/L Chloride (98-107) mmol/L Carbon Dioxide (22-30) mmol/L BUN (9-20) mg/dL Glucose (74-99) mg/dL Magnesium (1.6-2.3) mg/dL 05/07/19 Range/Units 05:48 RBC (4.30-5.90) m/uL Hgb (13.0-17.5) gm/dL MCHC (31.0-37.0) g/dL RDW (11.5-15.5) % Lymphocytes # (1.0-4.8) k/uL D-Dimer (<0.60) mg/L FEU ABG pCO2 (35-45) mmHg ABG pO2 (83-108) mmHg ABG HCO3 (21-25) mmol/L ABG Total CO2 (19-24) mmol/L ABG O2 Saturation (94-97) % Sodium 133 L (137-145) mmol/L Potassium 5.5 H (3.5-5.1) mmol/L Chloride 93 L (98-107) mmol/L Carbon Dioxide 32 H (22-30) mmol/L BUN 21 H (9-20) mg/dL Glucose 126 H (74-99) mg/dL Magnesium 1.5 L (1.6-2.3) mg/dL Assessment and Plan Assessment: An acute hypoxic respiratory failure Acute COPD exacerbation Alcohol intoxication and abuse Alcohol withdrawal Fall secondary to deconditioning and above Acute tracheobronchitis A. fib with RVR on anticoagulation due to noncompliance and high risk of falling Liver cirrhosis, alcoholic liver disease Obesity Electrolyte abnormality with hypo-magnesium anemia and hyperkalemia Progressive patchy infiltrate and atelectasis with a numerous peripheral small pulmonary nodule consistent with granulomatous disease with no pulmonary embolism. Evaluated by stave bolt equalizer Plan: This is a pleasant 54 years old male who presents with A. fib, alcohol abuse/withdrawal, fall, COPD. Continue with recommendation by pulmonary team, follow-up recommendation by cardiology team. Continue with antibiotics, continue with steroids. Continue with Librium and CIWA protocol. Continue with vitamins Labs and medication were reviewed.. Continue same treatment. Continue with symptomatic treatment. Resume home medication. Monitor lytes and vitals. DVT and GI prophylaxis. Further recommendations of the clinical course of the patient DVT prophylaxis: Subcutaneous heparin GI Prophylaxis: PPI PT/OT: Home health care, ordered Prognosis is guarded
[2019-05-07] MEDS: ATORVASTATIN 20 MG TAB PO SCH (08:58)
[2019-05-07] MEDS: GABAPENTIN 400 MG CAP PO SCH ×2 (08:58→20:36)
[2019-05-07] MEDS: CYCLOBENZAPRINE 10 MG TAB PO SCH ×3 (08:58→20:37)
[2019-05-07] MEDS: FERROUS SULFATE 325 MG TAB PO SCH ×2 (08:58→20:36)
[2019-05-07] MEDS: METOPROLOL TARTRATE 50 MG TAB PO SCH ×3 (08:59→20:37)
[2019-05-07] MEDS: hydrOXYzine PAMOATE 25 MG CAP PO SCH ×2 (08:59→20:36)
[2019-05-07] MEDS: SPIRONOLACTONE 25 MG TAB PO SCH ×2 (08:59→20:37)
[2019-05-07] MEDS: FUROSEMIDE 20 MG TAB PO SCH ×2 (08:59→15:47)
[2019-05-07] MEDS: VERAPAMIL 80 MG TAB PO SCH ×4 (08:59→20:37)
[2019-05-07] MEDS: NICOTINE 21MG/24HR PATCH TRANSDERM SCH (09:00)
[2019-05-07] MEDS: BACITRACIN 500 UNIT/GM OINT 28.4 GM TUBE TOPICAL SCH (09:01)
[2019-05-07] MEDS: HEPARIN SODIUM,PORCINE 5,000 UNIT/ML 1 ML VIAL SQ SCH ×2 (09:01→20:36)
[2019-05-07] MEDS: MEROPENEM 1 GM in SODIUM CHLORIDE 0.9% 100 ML IVPB SCH ×3 (09:25→23:38)
[2019-05-07] MEDS: MAGNESIUM SULFATE-D5W PMX 1 GM in DEXTROSE/WATER 1 100ML.BAG IVPB SCH ×2 (10:14→11:57)
[2019-05-07] MEDS: chlordiazePOXIDE 25 MG CAP PO SCH ×3 (10:14→20:37)
[2019-05-07] MEDS ORDERED: VANCOMYCIN 2,000 MG in SODIUM CHLORIDE 0.9% 500 ML 500 ML IVPB SCH (11:00)
--- NOTE | 2019-05-07 11:36 | P.PN ---
Subjective Progress Note Date: 05/07/19 Principal diagnosis: acute hypoxic respiratory failure due to acute COPD exacerbation A 54-year-old gentleman with a known history of alcoholism with daily and ongoing drinking. He presented here to the emergency room on 05/02/2019 after sustaining a fall. He was quite intoxicated. He was also found to be in atrial fibrillation with a rapid ventricular response. Serum alcohol level 160. Has a history of DVT, atrial fibrillation, obesity, and ongoing tobacco dependence, morbid obesity. He is seen today in consultation for his suspected COPD. Earlier today he developed restlessness anxiety agitation and was given Ativan and eventually Librium. He is currently arousable but hypoxic requiring 5 L high flow nasal cannula. X-ray shows old granulomatous disease. The patient is seen today 05/06/2019 in follow-up in the regular medical floor. He is awake and alert in no acute distress. Sitting up at the bedside. He is somewhat agitated and disoriented at times. Walking down the hallway naked. Looking for cigarettes and a choke setter. Family is currently at the bedside. His breathing is improved today compared to yesterday. He is more awake and alert. Continue O2 saturation in the 90s on 5 L nasal cannula. Continued on bronchodilators. On 05/07/2019 patient seen in follow-up on selective care unit, he is resting in bed, currently on 6 L of oxygen his pulse ox is 88%, still bronchospastic on today's exam, with basilar crackles, nonproductive cough. Patient is awake, and oriented 3, operative, non-agitated, and his confusion seems to have improved. last night was given a dose of IV Lasix, chest x-ray was negative for any acute pulmonary process, and showed old granulomatous disease, today patient continues on oral dose Lasix [address] angios of the chest was obtained in view of elevated d-dimer of 2.17, and was negative for any evidence of pulmonary embolism, and showed patchy infiltrates and atelectasis and scarring in both lungs, and numerous scattered peripheral small pulmonary nodules consistent with granulomatous disease. patient continues on Kefzol for skin abrasions involving his left lower extremity, and meropenem and vancomycin were added for possibility of pneumonic infiltrates Objective - Vital Signs Vital signs: Vital Signs Temp 97.4 F L 05/07/19 08:05 Pulse 113 H 05/07/19 08:05 Resp 18 05/07/19 08:05 BP 112/69 05/07/19 08:05 Pulse Ox 88 L 05/07/19 08:05 Intake & Output 05/06/19 05/07/19 05/07/19 18:59 06:59 18:59 Intake Total 1330 716 Output Total 600 Balance 1330 -600 716 Weight 123.6 kg Intake: IV 50 ceFAZolin 2 gm In Sodium 50 Chloride 0.9% 50 ml @ 100 mls/hr IVPB Q8HR LUCIA Rx# :[id number] Intake, IV Titration 200 Amount Magnesium Sulfate-D5w Pmx 200 1 gm In Dextrose/Water 1 100ml.bag @ 100 mls/hr IVPB Q1H LUCIA Rx#: [id number] Oral 1080 716 Output: Urine 480 Stool 120 Other: Voiding Method Toilet Toilet Toilet Urinal Urinal Urinal # Voids 2 # Bowel Movements 1 - Exam GENERAL EXAM: Alert, pleasant 54-year-old white male, on 6 L of oxygen with pulse ox of 88%, mildly dyspneic, in no apparent distress. HEAD: Normocephalic/atraumatic. healing abrasion on the left side of his forehead EYES: Normal reaction of pupils, equal size. Conjunctiva pink, sclera white. NOSE: Clear with pink turbinates. THROAT: No erythema or exudates. NECK: No masses, no JVD, no thyroid enlargement, no adenopathy. CHEST: No chest wall deformity. Symmetrical expansion. LUNGS: Equal air entry with diffuse wheezes CVS: Regular rate and rhythm, normal S1 and S2, no gallops, no murmurs, no rubs ABDOMEN: Soft, nontender. No hepatosplenomegaly, normal bowel sounds, no guarding or rigidity. EXTREMITIES: No clubbing, no edema, no cyanosis, 2+ pulses and upper and lower extremities. MUSCULOSKELETAL: Muscle strength and tone normal. SPINE: No scoliosis or deformity SKIN: abrasion on his left alcaraz, with limited amount of serous drainage CENTRAL NERVOUS SYSTEM: Alert and oriented -3. No focal deficits, tone is normal in all 4 extremities. PSYCHIATRIC: Alert and oriented -3. Appropriate affect. Intact judgment and insight. - Labs CBC & Chem 7: 05/07/19 05:48 05/07/19 05:48 Labs: Abnormal Lab Results - Last 24 Hours (Table) 05/06/19 05/06/19 05/07/19 Range/Units 20:09 20:10 05:48 RBC 4.15 L (4.30-5.90) m/uL Hgb 11.5 L (13.0-17.5) gm/dL MCHC 28.7 L (31.0-37.0) g/dL RDW 23.9 H (11.5-15.5) % Lymphocytes # 0.4 L (1.0-4.8) k/uL D-Dimer 2.17 H (<0.60) mg/L FEU ABG pCO2 57 H (35-45) mmHg ABG pO2 66 L (83-108) mmHg ABG HCO3 31 H (21-25) mmol/L ABG Total CO2 33 H (19-24) mmol/L ABG O2 Saturation 89.8 L (94-97) % Sodium (137-145) mmol/L Potassium (3.5-5.1) mmol/L Chloride (98-107) mmol/L Carbon Dioxide (22-30) mmol/L BUN (9-20) mg/dL Glucose (74-99) mg/dL Magnesium (1.6-2.3) mg/dL 05/07/19 Range/Units 05:48 RBC (4.30-5.90) m/uL Hgb (13.0-17.5) gm/dL MCHC (31.0-37.0) g/dL RDW (11.5-15.5) % Lymphocytes # (1.0-4.8) k/uL D-Dimer (<0.60) mg/L FEU ABG pCO2 (35-45) mmHg ABG pO2 (83-108) mmHg ABG HCO3 (21-25) mmol/L ABG Total CO2 (19-24) mmol/L ABG O2 Saturation (94-97) % Sodium 133 L (137-145) mmol/L Potassium 5.5 H (3.5-5.1) mmol/L Chloride 93 L (98-107) mmol/L Carbon Dioxide 32 H (22-30) mmol/L BUN 21 H (9-20) mg/dL Glucose 126 H (74-99) mg/dL Magnesium 1.5 L (1.6-2.3) mg/dL Assessment and Plan Plan: #1. acute hypoxic respiratory failure due to to acute exacerbation of COPD, chest x-rays showed old granulomatous disease but no acute pulmonary process, CTA chest was negative for any evidence of pulmonary embolism, and patchy infiltrates/atelectasis and scarring in both lungs #2. Falls secondary to intoxication and some concern regarding alcohol withdrawal syndrome. #3. Atrial fibrillation with rapid ventricular response, not on anticoagulants due to frequent falls and medication compliance #4. Chronic and ongoing tobacco dependence suspect some component of chronic obstructive pulmonary disease #5. Liver cirrhosis. #6. Normocytic anemia #7. History of DVT #8. Hyperlipidemia. #9. Chronic alcohol abuse with pending DTs Plan: Continue IV steroids, antibiotics, nebulized treatments, maintain aspiration precautions, provided incentive spirometer. Chest x-ray and CT chest reviewed, showing no acute pulmonary process, limited basilar infiltrate/atelectasis. maintaining safety precautions, monitor for signs of DTs I performed a history & physical examination of the patient and discussed their management with my nurse practitioner, Le Calderon. I reviewed the nurse practitioner's note and agree with the documented findings and plan of care. Lung sounds are positive for diffuse wheezes throughout the lung moore. The findings and the impression was discussed with the patient. I attest to the documentation by the nurse practitioner. Time with Patient: Less than 30
[2019-05-07 12:35] LABS: Glucose,Whole Blood 188 mg/dL (75-99)
[2019-05-07] MEDS: INSULIN ASPART (NovoLOG) 100 UNIT/ML VIAL SQ SCH ×3 (12:48→20:40)
[2019-05-07 17:21] LABS: Glucose,Whole Blood 145 mg/dL (75-99)
[2019-05-07 20:11] LABS: Glucose,Whole Blood 598 mg/dL (75-99)
[2019-05-07 20:12] LABS: Glucose,Whole Blood 169 mg/dL (75-99)
[2019-05-08] MEDS: IPRATROPIUM-ALBUTEROL 3 ML NEB INHALATION SCH ×5 (00:08→23:52)
[2019-05-08] MEDS: VANCOMYCIN 2,000 MG in SODIUM CHLORIDE 0.9% 500 ML 500 ML IVPB SCH ×2 (01:58→18:05)
[2019-05-08 06:18] LABS: Anisocytosis Moderate; Basophils % (A) 0 %; Eosinophils % (A) 0 %; HCT 38.6 % (39.0-53.0); HGB 10.9 gm/dL (13.0-17.5); Hypochromasia Marked; Lymphocytes # (A) 0.4 k/uL (1.0-4.8); Lymphocytes % (A) 3 %; MCH 27.6 pg (25.0-35.0); MCHC 28.3 g/dL (31.0-37.0); MCV 97.6 fL (80.0-100.0); Macrocytosis Moderate; Mean Platelet Volume 7.1; Monocytes # (A) 0.4 k/uL (0-1.0); Monocytes % (A) 4 %; Neutrophils # (A) 10.8 k/uL (1.3-7.7); Neutrophils % (A) 92 %; Platelet Count 292 k/uL (150-450); RBC 3.95 m/uL (4.30-5.90); RDW 23.9 % (11.5-15.5); WBC 11.8 k/uL (3.8-10.6)
[2019-05-08 06:20] LABS: Glucose,Whole Blood 195 mg/dL (75-99)
[2019-05-08 06:27] LABS: African American GFR (CKD) >90 (>60 ml/min/1.73 sqM); Anion Gap 8 mmol/L; Blood Urea Nitrogen 22 mg/dL (9-20); Calcium 9.3 mg/dL (8.4-10.2); Carbon Dioxide 35 mmol/L (22-30); Chloride 93 mmol/L (98-107); Glucose 132 mg/dL (74-99); Magnesium 1.7 mg/dL (1.6-2.3); Non-African American GFR(CKD) >90 (>60 ml/min/1.73 sqM); Potassium 5.1 mmol/L (3.5-5.1); Sodium 136 mmol/L (137-145)
[2019-05-08] MEDS: methylPREDNISolone SOD SUCCI 125 MG/2 ML VIAL IV SCH ×3 (06:33→20:05)
[2019-05-08] MEDS: THIAMINE 100 MG TAB PO SCH ×2 (06:33→18:06)
[2019-05-08] MEDS: INSULIN ASPART (NovoLOG) 100 UNIT/ML VIAL SQ SCH ×4 (06:33→22:22)
[2019-05-08] MEDS: PANTOPRAZOLE 40 MG TABLET PO SCH (06:33)
--- NOTE | 2019-05-08 08:54 | P.PN ---
Subjective per records: 54-year-old gentleman who has a known history of atrial fibrillation, COPD, DVT, GERD, hyperlipidemia, liver disease, liver cirrhosis, chronic EtOH abuse since he was a teenager; admitted to the hospital with atrial flutter and EtOH intoxication/withdrawal 05/04/2019 Patient is seen and evaluated in room at bedside; patient remains in atrial fibrillation with controlled heart rate in 90s; cardiology is following and recommending to increase metoprolol up to 50 mg 3 times a day and decrease elizabet rvastatin to 20 mg daily; patient remains on CIWA protocol; does have history of alcoholic liver disease/ascites; we will consult GI for further recommendations 05/05/2019 Patient is seen and evaluated at bedside; was quite anxious and agitated earlier today with a CIWA score of 15; patient was given IV Ativan per protocol; I have started patient on Librium 20 mg by mouth 4 times a day along with CIWA protocol Cardiology has evaluated patient for paroxysmal atrial fibrillation; verapamil is increased to 80 mg 4 times a day; cardiology recommending discharge if heart rate remained stable Patient remains quite dyspneic requiring 5 L of oxygen; pulmonary has evaluated patient; chest x-ray with possible old granulomatous disease; recommending to titrate FiO2 to maintain O2 saturation greater than 90%; patient is started on bronchodilators and IV Solu-Medrol Patient has been evaluated by GI service and recommending follow-up as an outpatient for EtOH induced liver disease 05/06/2019 Patient is seen and evaluated for follow-up; remains on selective care unit; patient was more agitated and disoriented earlier this morning and was walking down the hallway naked; remains on IV Ativan per CIWA protocol; somewhat more awake and alert at the time of my exam; we will continue with current dose of Librium and possibly start tapering off in next 24 hours; patient remains on O2 5 L per nasal cannula keeping SpO2 greater than 92%; pulmonary service is following and recommending to continue with current bronchodilator therapy; we will continue with IV fluids, thiamine and folic acid; continue with current dose of Librium and Ativan per CIWA protocol; patient will follow-up with GI as an outpatient for EtOH induced liver disease Subjective: 05/07/2019 Patient is seen and examined by me for first time today. Patient is a pleasant 54 years old male, obese who presents with a fall related to his alcohol intoxication. Patient drinks 6 beers per day and smokes 1 pack per day, no illicit tracts. He he feels generally weak, today he is awake and alert 3, no signs of alcohol withdrawal or delirium tremens however remains on CIWA protocol and on Librium 25 mg by mouth every 8 hours. Also is on 6 L of oxygen via nasal cannula and he is saturating high 80s-low 90s, patient is not on home oxygen. CTA of the chest showing patchy infiltrates and atelectasis with numerous peripheral pulmonary nodule consistent with a granulomatous disease, pulmonary progressive disease. No pulmonary embolism. MAPS checked today shows he was not on Aubrey, Librium, Ativan or benzodiazepine., However he was on gabapentin 600 mg 4 times a day. Patient couldn't walk to the bathroom with little difficulty. He denies exertional dyspnea. However he has cough and yellowish/clear phlegm. No chest pain. Patient remains on cefazolin, IV vancomycin, Librium and Ativan when necessary, Enrique is on solu-Medrol 60 mg PT/OT recommended home health care 05/08/2019 Patient is awake and oriented to time, place and person this morning, however he could not remember why he was in the hospital and what medical problems he had although I talked to him about them yesterday. And I reoriented him again about his medical problem today and eventually he agrees to stay in the hospital and take medication. Patient was trying to leave AMA yesterday, family came to visit him yesterday and eventually he stayed in the hospital. This morning he was still in the bed side nurse that he wanted to leave again and he was refusing his medication, when I went to see the patient and family wanted him with his illnesses he then agrees to stay in the hospital and take medication. Sitter is at bedside for safety. We going to call psych consult to assess his capacity as he was refusing treatment at times and wanted to leave AMA. Currently patient is ag reeable to send hospital but if he tries to leave we will petition him, also will keep sitter at bedside. Patient is slightly tachycardic and he is saturating 93% on 6 L oxygen. A febrile. He has leukocytosis of 11.8 K today but also is on steroids. BMP and electrolytes are unremarkable. Patient remains on cefazolin and IV vancomycin, he remains on Librium 25 mg decided to CIWA protocol, he is on Solu-Medrol 60 mg and gabapentin 1200 twice daily. Patient authorized me to talk to his family including his sister Remedios at [phone], after pt allowed me to you. I call her and discussed the case with her and she agreeable with the plan Discussed with staff Review of systems CONSTITUTIONAL: No fever, no malaise, no fatigue. HEENT: No recent visual problems or hearing problems. Denied any sore throat. CARDIOVASCULAR:no syncope. PULMONARY: no hemoptysis. GASTROINTESTINAL: No diarrhea, no nausea, no vomiting, no abdominal pain. Normoactive bowel sounds. NEUROLOGICAL: No headaches, no weakness, no numbness. HEMATOLOGICAL: Denies any bleeding or petechiae. GENITOURINARY: Denies any burning micturition, frequency, or urgency. MUSCULOSKELETAL/RHEUMATOLOGICAL: Denies any joint pain, swelling, or any muscle pain. ENDOCRINE: Denies any polyuria or polydipsia. Active Medications Generic Name Dose Route Start Last Admin Trade Name Freq PRN Reason Stop Dose Admin Hydrocodone Bitart/Acetaminophen 1 each 05/02/19 19:45 05/03/19 23:02 Aubrey 5-325 PO 1 each Q6HR PRN Administration Pain Albuterol/Ipratropium 3 ml 05/03/19 02:00 05/06/19 19:52 Duoneb 0.5 Mg-3 Mg/3 Ml Soln INHALATION 3 ml RT-Q6H PRN Administration Shortness Of Breath Albuterol/Ipratropium 3 ml 05/07/19 02:00 05/08/19 07:44 Duoneb 0.5 Mg-3 Mg/3 Ml Soln INHALATION Not Given RT-Q6H LUCIA Atorvastatin Calcium 20 mg 05/05/19 09:00 05/07/19 08:58 Lipitor PO 20 mg DAILY LUCIA Administration Bacitracin 1 applic 05/04/19 09:00 05/07/19 09:01 Bacitracin Oint TOPICAL 1 applic DAILY LUCIA Administration Chlordiazepoxide HCl 25 mg 05/07/19 09:00 05/07/19 20:37 Librium PO 25 mg TID LUCIA Administration Cyclobenzaprine HCl 10 mg 05/02/19 22:00 05/07/19 20:37 Flexeril PO 10 mg TID LUCIA Administration Ferrous Sulfate 325 mg 05/02/19 21:00 05/07/19 20:36 Feosol PO 325 mg BID LUCIA Administration Furosemide 40 mg 05/08/19 09:00 Lasix PO BID@0900,1600 LUCIA Gabapentin 1,200 mg 05/02/19 21:00 05/07/19 20:36 Neurontin PO 1,200 mg BID LUCIA Administration Heparin Sodium (Porcine) 5,000 unit 05/03/19 21:00 05/07/19 20:36 Heparin SQ 5,000 unit Q12HR LUCIA Administration Hydroxyzine Pamoate 50 mg 05/02/19 21:00 05/07/19 20:36 Vistaril PO 50 mg HS LUCIA Administration Hydroxyzine Pamoate 25 mg 05/03/19 09:00 05/07/19 08:59 Vistaril PO 25 mg QAM LUCIA Administration Cefazolin Sodium 2 gm/ Sodium 50 mls @ 100 mls/hr 05/03/19 16:00 05/07/19 22:50 Chloride IVPB 100 mls/hr Q8HR LUCIA Administration Meropenem 1 gm/ Sodium 100 mls @ 200 mls/hr 05/07/19 08:00 05/07/19 23:38 Chloride IVPB 200 mls/hr Q8HR LUCIA Administration Protocol Vancomycin HCl 2,000 mg/ 500 mls @ 167 mls/hr 05/08/19 02:00 05/08/19 01:58 Sodium Chloride IVPB 167 mls/hr Q12H LUCIA Administration Insulin Aspart 0 unit 05/07/19 17:30 05/08/19 06:33 Novolog SQ 5 unit ACHS LUCIA Administration Protocol Lorazepam 1 mg 05/02/19 16:25 05/03/19 02:44 Ativan IV 1 mg Q2HR PRN Administration CIWA 8 or 9 Lorazepam 1 mg 05/02/19 16:25 05/06/19 06:38 Ativan IV 1 mg Q1HR PRN Administration CIWA 10 to 15 Methylprednisolone Sodium Succinate 60 mg 05/07/19 06:00 05/08/19 06:33 Solu-Medrol IV 60 mg Q8H LUCIA Administration Metoprolol Tartrate 50 mg 05/04/19 16:00 05/07/19 20:37 Lopressor PO 50 mg TID LUCIA Administration Miscellaneous Information 1 each 05/03/19 10:11 Magnesium Per Protocol MISCELLANE DAILY PRN Per Protocol Protocol Miscellaneous Information 1 each 05/03/19 12:01 Magnesium Per Protocol MISCELLANE DAILY PRN Per Protocol Protocol Naloxone HCl 0.2 mg 05/02/19 16:30 Narcan IV Q2M PRN Opioid Reversal Nicotine 1 patch 05/05/19 16:15 05/07/19 09:00 Habitrol 21mg/24hr Patch TRANSDERM 1 patch DAILY LUCIA Administration Pantoprazole Sodium 40 mg 05/04/19 07:30 05/08/19 06:33 Protonix PO 40 mg [id number] LUCIA Administration Spironolactone 50 mg 05/02/19 21:00 05/07/19 20:37 Aldactone PO 50 mg BID LUCIA Administration Thiamine HCl 100 mg 05/03/19 07:30 05/08/19 06:33 Vitamin B-1 PO 100 mg BID-W/MEALS LUCIA Administration Verapamil HCl 80 mg 05/05/19 13:00 05/07/19 20:37 Isoptin PO 80 mg QID LUCIA Administration Objective - Vital Signs Vital signs: Vital Signs Temp 98 F 05/08/19 03:00 Pulse 111 H 05/08/19 03:00 Resp 18 05/08/19 03:00 BP 135/91 05/08/19 03:00 Pulse Ox 93 L 05/08/19 03:00 Intake & Output 05/07/19 05/08/19 05/08/19 18:59 06:59 18:59 Intake Total 1296 240 Output Total 400 60 Balance 896 180 Weight 127.1 kg Intake: IV 50 ceFAZolin 2 gm In Sodium 50 Chloride 0.9% 50 ml @ 100 mls/hr IVPB Q8HR LUCIA Rx# :[id number] Intake, IV Titration 300 Amount Magnesium Sulfate-D5w Pmx 200 1 gm In Dextrose/Water 1 100ml.bag @ 100 mls/hr IVPB Q1H LUCIA Rx#: [id number] Meropenem 1 gm In Sodium 100 Chloride 0.9% 100 ml @ 200 mls/hr IVPB Q8HR LUCIA Rx#:[id number] Oral 946 240 Output: Urine 400 Stool 60 Other: Voiding Method Toilet Toilet Urinal Urinal - Exam -GENERAL: The patient is alert and oriented x3, not in any acute distress. Obese HEENT: Pupils are round and equally reacting to light. EOMI. No scleral icterus. No conjunctival pallor. Normocephalic, atraumatic. No pharyngeal erythema. No thyromegaly. CARDIOVASCULAR: S1 and S2 present. No murmurs, rubs, or gallops. -PULMONARY: Chest is clear to auscultation, decreased air entry on both sides. No obvious wheezing or crackles -ABDOMEN: Soft, nontender, distended due to fat (ultrasound showed no ascites), normoactive bowel sounds. No palpable organomegaly. MUSCULOSKELETAL: No joint swelling or deformity. EXTREMITIES: No cyanosis, clubbing, or pedal edema. NEUROLOGICAL: Gross neurological examination did not reveal any focal deficits. SKIN: No rashes. no petechiae. - Labs CBC & Chem 7: 05/08/19 05:33 05/08/19 05:33 Labs: Abnormal Lab Results - Last 24 Hours (Table) 05/07/19 05/07/19 05/07/19 Range/Units 12:15 17:14 20:08 WBC (3.8-10.6) k/uL RBC (4.30-5.90) m/uL Hgb (13.0-17.5) gm/dL Hct (39.0-53.0) % MCHC (31.0-37.0) g/dL RDW (11.5-15.5) % Neutrophils # (1.3-7.7) k/uL Lymphocytes # (1.0-4.8) k/uL Sodium (137-145) mmol/L Chloride (98-107) mmol/L Carbon Dioxide (22-30) mmol/L BUN (9-20) mg/dL Glucose (74-99) mg/dL POC Glucose (mg/dL) 188 H 145 H 598 H (75-99) mg/dL 05/07/19 05/08/19 05/08/19 Range/Units 20:10 05:33 05:33 WBC 11.8 H (3.8-10.6) k/uL RBC 3.95 L (4.30-5.90) m/uL Hgb 10.9 L (13.0-17.5) gm/dL Hct 38.6 L (39.0-53.0) % MCHC 28.3 L (31.0-37.0) g/dL RDW 23.9 H (11.5-15.5) % Neutrophils # 10.8 H (1.3-7.7) k/uL Lymphocytes # 0.4 L (1.0-4.8) k/uL Sodium 136 L (137-145) mmol/L Chloride 93 L (98-107) mmol/L Carbon Dioxide 35 H (22-30) mmol/L BUN 22 H (9-20) mg/dL Glucose 132 H (74-99) mg/dL POC Glucose (mg/dL) 169 H (75-99) mg/dL 05/08/19 Range/Units 06:19 WBC (3.8-10.6) k/uL RBC (4.30-5.90) m/uL Hgb (13.0-17.5) gm/dL Hct (39.0-53.0) % MCHC (31.0-37.0) g/dL RDW (11.5-15.5) % Neutrophils # (1.3-7.7) k/uL Lymphocytes # (1.0-4.8) k/uL Sodium (137-145) mmol/L Chloride (98-107) mmol/L Carbon Dioxide (22-30) mmol/L BUN (9-20) mg/dL Glucose (74-99) mg/dL POC Glucose (mg/dL) 195 H (75-99) mg/dL Assessment and Plan Assessment: An acute hypoxic respiratory failure Acute COPD exacerbation Alcohol intoxication and abuse Alcohol withdrawal Fall secondary to deconditioning and above Acute tracheobronchitis A. fib with RVR on anticoagulation due to noncompliance and high risk of falling Liver cirrhosis, alcoholic liver disease Obesity Electrolyte abnormality with hypo-magnesium anemia and hyperkalemia Progressive patchy infiltrate and atelectasis with a numerous peripheral small pulmonary nodule consistent with granulomatous disease with no pulmonary embolism. Evaluated by counter hand Plan: This is a pleasant 54 years old male who presents with A. fib, alcohol abuse/withdrawal, fall, COPD. Continue with recommendation by pulmonary team, follow-up recommendation by cardiology team. Continue with antibiotics, continue with steroids. Continue with Librium and CIWA protocol. Continue with vitamins Keep sitter at bedside, psych consult for capacity, patient agreeable to stay in the hospital for now, we'll going to petition the patient if he decides to leave A. Discussed with staff Labs and medication were reviewed.. Continue same treatment. Continue with symptomatic treatment. Resume home medication. Monitor lytes and vitals. DVT and GI prophylaxis. Further recommendations of the clinical course of the patient DVT prophylaxis: Subcutaneous heparin GI Prophylaxis: PPI PT/OT: Home health care, ordered Prognosis is guarded
[2019-05-08] MEDS: FERROUS SULFATE 325 MG TAB PO SCH ×2 (09:47→20:05)
[2019-05-08] MEDS: SPIRONOLACTONE 25 MG TAB PO SCH ×2 (09:47→20:03)
[2019-05-08] MEDS: ATORVASTATIN 20 MG TAB PO SCH (09:47)
[2019-05-08] MEDS: BACITRACIN 500 UNIT/GM OINT 28.4 GM TUBE TOPICAL SCH (09:48)
[2019-05-08] MEDS: NICOTINE 21MG/24HR PATCH TRANSDERM SCH (09:48)
[2019-05-08] MEDS: FUROSEMIDE 40 MG TAB PO SCH ×2 (09:48→18:04)
[2019-05-08] MEDS: CYCLOBENZAPRINE 10 MG TAB PO SCH ×3 (09:48→20:04)
[2019-05-08] MEDS: HEPARIN SODIUM,PORCINE 5,000 UNIT/ML 1 ML VIAL SQ SCH ×2 (09:48→20:04)
[2019-05-08] MEDS: VERAPAMIL 80 MG TAB PO SCH ×4 (09:48→22:22)
[2019-05-08] MEDS: hydrOXYzine PAMOATE 25 MG CAP PO SCH ×2 (09:48→20:04)
[2019-05-08] MEDS: chlordiazePOXIDE 25 MG CAP PO SCH ×3 (09:48→20:03)
[2019-05-08] MEDS: METOPROLOL TARTRATE 50 MG TAB PO SCH ×3 (09:48→20:03)
[2019-05-08] MEDS: GABAPENTIN 400 MG CAP PO SCH ×2 (09:54→20:04)
[2019-05-08 11:54] LABS: Glucose,Whole Blood 139 mg/dL (75-99)
--- NOTE | 2019-05-08 11:57 | P.PN ---
Subjective Progress Note Date: 05/08/19 Principal diagnosis: acute hypoxic respiratory failure due to acute COPD exacerbation A 54-year-old gentleman with a known history of alcoholism with daily and ongoing drinking. He presented here to the emergency room on 05/02/2019 after sustaining a fall. He was quite intoxicated. He was also found to be in atrial fibrillation with a rapid ventricular response. Serum alcohol level 160. Has a history of DVT, atrial fibrillation, obesity, and ongoing tobacco dependence, morbid obesity. He is seen today in consultation for his suspected COPD. Earlier today he developed restlessness anxiety agitation and was given Ativan and eventually Librium. He is currently arousable but hypoxic requiring 5 L high flow nasal cannula. X-ray shows old granulomatous disease. The patient is seen today 05/06/2019 in follow-up in the regular medical floor. He is awake and alert in no acute distress. Sitting up at the bedside. He is somewhat agitated and disoriented at times. Walking down the hallway naked. Looking for cigarettes and a polysom tech. Family is currently at the bedside. His breathing is improved today compared to yesterday. He is more awake and alert. Continue O2 saturation in the 90s on 5 L nasal cannula. Continued on bronchodilators. On 05/07/2019 patient seen in follow-up on selective care unit, he is resting in bed, currently on 6 L of oxygen his pulse ox is 88%, still bronchospastic on today's exam, with basilar crackles, nonproductive cough. Patient is awake, and oriented 3, operative, non-agitated, and his confusion seems to have improved. last night was given a dose of IV Lasix, chest x-ray was negative for any acute pulmonary process, and showed old granulomatous disease, today patient continues on oral dose Lasix [address] angios of the chest was obtained in view of elevated d-dimer of 2.17, and was negative for any evidence of pulmonary embolism, and showed patchy infiltrates and atelectasis and scarring in both lungs, and numerous scattered peripheral small pulmonary nodules consistent with granulomatous disease. patient continues on Kefzol for skin abrasions involving his left lower extremity, and meropenem and vancomycin were added for possibility of pneumonic infiltrates On 05/08/2019 patient seen in follow-up on selective care unit. He is resting comfortably in bed, he states his breathing is improving, he sounds better on today's exam, still bronchospastic but less wheezy, yesterday we increased the patient's oral dose of Lasix, and currently patient is on 40 mg orally twice daily, remains on empiric antibiotics, he is not producing any significant amount of phlegm, remains afebrile, FiO2 is being weaned down, currently patient is down to 5 L. Mentation seems to be improving, patient is answering questions appropriately, seems to be cooperative for the most part but at times may get impulsive, and for that reason patient has a safety patrol officer at the bedside. he remains on combination of vancomycin and meropenem, and cefazolin Objective - Vital Signs Vital signs: Vital Signs Temp 98 F 05/08/19 03:00 Pulse 84 05/08/19 11:30 Resp 18 05/08/19 03:00 BP 135/91 05/08/19 03:00 Pulse Ox 93 L 05/08/19 03:00 Intake & Output 05/07/19 05/08/19 05/08/19 18:59 06:59 18:59 Intake Total 1296 240 360 Output Total 400 60 Balance 896 180 360 Weight 127.1 kg Intake: IV 50 ceFAZolin 2 gm In Sodium 50 Chloride 0.9% 50 ml @ 100 mls/hr IVPB Q8HR [facility] Rx# :[id number] Intake, IV Titration 300 Amount Magnesium Sulfate-D5w Pmx 200 1 gm In Dextrose/Water 1 100ml.bag @ 100 mls/hr IVPB Q1H [facility] Rx#: [id number] Meropenem 1 gm In Sodium 100 Chloride 0.9% 100 ml @ 200 mls/hr IVPB Q8HR LUCIA Rx#:[id number] Oral 946 240 360 Output: Urine 400 Stool 60 Other: Voiding Method Toilet Toilet Urinal Urinal - Exam GENERAL EXAM: Alert, pleasant 54-year-old white male, on 6 L of oxygen with pulse ox of 93%, mildly dyspneic, in no apparent distress. HEAD: Normocephalic/atraumatic. healing abrasion on the left side of his forehead EYES: Normal reaction of pupils, equal size. Conjunctiva pink, sclera white. NOSE: Clear with pink turbinates. THROAT: No erythema or exudates. NECK: No masses, no JVD, no thyroid enlargement, no adenopathy. CHEST: No chest wall deformity. Symmetrical expansion. LUNGS: Equal air entry with diffuse wheezes CVS: Regular rate and rhythm, normal S1 and S2, no gallops, no murmurs, no rubs ABDOMEN: Soft, nontender. No hepatosplenomegaly, normal bowel sounds, no guarding or rigidity. EXTREMITIES: No clubbing, no edema, no cyanosis, 2+ pulses and upper and lower extremities. MUSCULOSKELETAL: Muscle strength and tone normal. SPINE: No scoliosis or deformity SKIN: abrasion on his left alcaraz, with limited amount of serous drainage CENTRAL NERVOUS SYSTEM: Alert and oriented -3. No focal deficits, tone is normal in all 4 extremities. PSYCHIATRIC: Alert and oriented -3. Appropriate affect. Intact judgment and insight. - Labs CBC & Chem 7: 05/08/19 05:33 05/08/19 05:33 Labs: Abnormal Lab Results - Last 24 Hours (Table) 05/07/19 05/07/19 05/07/19 Range/Units 12:15 17:14 20:08 WBC (3.8-10.6) k/uL RBC (4.30-5.90) m/uL Hgb (13.0-17.5) gm/dL Hct (39.0-53.0) % MCHC (31.0-37.0) g/dL RDW (11.5-15.5) % Neutrophils # (1.3-7.7) k/uL Lymphocytes # (1.0-4.8) k/uL Sodium (137-145) mmol/L Chloride (98-107) mmol/L Carbon Dioxide (22-30) mmol/L BUN (9-20) mg/dL Glucose (74-99) mg/dL POC Glucose (mg/dL) 188 H 145 H 598 H (75-99) mg/dL 05/07/19 05/08/19 05/08/19 Range/Units 20:10 05:33 05:33 WBC 11.8 H (3.8-10.6) k/uL RBC 3.95 L (4.30-5.90) m/uL Hgb 10.9 L (13.0-17.5) gm/dL Hct 38.6 L (39.0-53.0) % MCHC 28.3 L (31.0-37.0) g/dL RDW 23.9 H (11.5-15.5) % Neutrophils # 10.8 H (1.3-7.7) k/uL Lymphocytes # 0.4 L (1.0-4.8) k/uL Sodium 136 L (137-145) mmol/L Chloride 93 L (98-107) mmol/L Carbon Dioxide 35 H (22-30) mmol/L BUN 22 H (9-20) mg/dL Glucose 132 H (74-99) mg/dL POC Glucose (mg/dL) 169 H (75-99) mg/dL 05/08/19 Range/Units 06:19 WBC (3.8-10.6) k/uL RBC (4.30-5.90) m/uL Hgb (13.0-17.5) gm/dL Hct (39.0-53.0) % MCHC (31.0-37.0) g/dL RDW (11.5-15.5) % Neutrophils # (1.3-7.7) k/uL Lymphocytes # (1.0-4.8) k/uL Sodium (137-145) mmol/L Chloride (98-107) mmol/L Carbon Dioxide (22-30) mmol/L BUN (9-20) mg/dL Glucose (74-99) mg/dL POC Glucose (mg/dL) 195 H (75-99) mg/dL Assessment and Plan Plan: #1. acute hypoxic respiratory failure due to to acute exacerbation of COPD, chest x-rays showed old granulomatous disease but no acute pulmonary process, CTA chest was negative for any evidence of pulmonary embolism, and patchy infiltrates/atelectasis and scarring in both lungs #2. Falls secondary to intoxication and some concern regarding alcohol withdrawal syndrome. #3. Atrial fibrillation with rapid ventricular response, not on anticoagulants due to frequent falls and medication compliance #4. Chronic and ongoing tobacco dependence suspect some component of chronic obstructive pulmonary disease #5. Liver cirrhosis. #6. Normocytic anemia #7. History of DVT #8. Hyperlipidemia. #9. Chronic alcohol abuse with pending DTs Plan: Continue with current antibiotics, yesterday we increased the patient's dose of oral Lasix, he is breathing easier, continue weaning FiO2, maintaining safety precautions, encouraged the patient to sit up in the chair, less bronchospastic less dyspneic on today's exam, weaning FiO2, mentation seems to be improving, maintaining safety patrol officer at the bedside, follow electrolytes and renal profile on daily labs I performed a history & physical examination of the patient and discussed their management with my nurse practitioner, Le Calderon. I reviewed the nurse practitioner's note and agree with the documented findings and plan of care. Lung sounds are positive for diffuse wheezes throughout the lung moore. The findings and the impression was discussed with the patient. I attest to the documentation by the nurse practitioner. Time with Patient: Less than 30
[2019-05-08] MEDS: MEROPENEM 1 GM in SODIUM CHLORIDE 0.9% 100 ML IVPB SCH ×3 (12:37→22:44)
--- NOTE | 2019-05-08 13:18 | P.CN ---
Psychiatric Consult - . Consult date: 05/08/19 Consult:: 05/08/19 11:20 IDENTIFYING DATA: This patient is a 54-year-old male with a history of liver cirrhosis and alcohol abuse and significant medical comorbidities including A. fib COPD and history of DVT who currently lives alone in a house has 1 kid is single and collects Social Security HISTORY OF PRESENT ILLNESS: The patient was brought into the hospital on 05/02/2019 for evaluation after multiple falls, garbled speech, abdominal disten tion with a history liver failure and alcohol intoxication and also sustaining a head injury at home after a fall. Patient was admitted to the medical floors and has been receiving treatment and has been for the most part cooperative until this morning when patient began refusing treatment and medications and names that he wanted to sign out AMA. Psychiatry was asked to see patient for assessment of capacity. Patient was seen at the bedside and appears to be ill and obese and was breathing through a mask. Patient was directable and agreeable to speak to life underwriter. He states that he denies any depression or any problems with his mood and states that this morning he felt "frustrated" and felt like he wanted to go home. He spoke about the events that led him to the hospital and how he fell and hit his head on the floor in the morning time and claimed to have been drinking. Approximately 3-4 that morning. He claims that this has happened in the past patient has not been caring for himself. He states that he was agreeable to stay in the hospital and not leave AMA as "then I'd have to pay for the bill and had a wanted do that". She also states that he understands that "I could " if he goes against medical doctor's recommendations and is in cleared. Patient does not elaborate much on the risks besides possible and states that he wants to go home to watch TV however does usually lessen the doctor's recommendations. At this time he denies any withdrawal symptoms from alcohol denies any tremors denies any seizures or cravings from alcohol. At this time patient denies any suicidal or homical ideations, intent or plan. Patient denies any auditory, visual hallucinations and denies any paranoia or delusions. He admits to drinking alcohol for several years approximately 6 beers a day and denies any rehab in the past however has gone to AA meetings. He claims to smoke cigarettes daily and also marijuana approximately one joint a day. He denies any other recreational drugs. PAST PSYCHIATRIC HISTORY: He denies any mental health admissions and denies any psychiatric outpatient follow-up. Patient denies any suicide attempts in the past or being on any psychotropic medications. PAST MEDICAL HISTORY: Liver cirrhosis, A. fib, COPD, DVT, GERD, OA, HLP. ALLERGIES: as per EMR. CHEMICAL DEPENDENCY HISTORY: as per HPI. FAMILY PSYCHIATRIC/SUBSTANCE USE HISTORY: Denies SOCIAL HISTORY: He states that he was born and raised in the [facility] and worked at [employer] in the past and hasn't worked since 1999. Patient states that he completed up until the ninth grade in school and is currently living alone in a house has 1 kid and is single and collects Social Security. MENTAL STATUS EXAM: General Appearance: Patient appears to be obese, ill, older than stated age is alert, and directable. Poor hygiene and grooming and has one abrasion which is healing over his forehead. Behavior: Patient is calmly lying in bed without any agitated behavior. Speech: Patient's speech is nonpressured. Garbled and difficult to understand at times. Mood/Affect: Patient reports their mood is "fine", affect is congruent Suicidality/Homicidality: Patient denies having any suicidal or homicidal ideation intent or plan. Perceptions: Patient denies any auditory or visual hallucinations. Though content/process: There is no evidence of any delusional thought content and thought process is linear and goal-directed. Memory and concentration: AOX3, grossly intact for the purposes of this session. Can spell "WORLD" backwards, fair abstraction and judgement. can identify objects correctly. Judgment and insight: poor/impulsive IMPRESSIONS: Alcohol-induced mood disorder, currently in late withdrawal Nicotine dependence PLAN: -At this time patient does NOT meet criteria for inpatient psychiatric admission. -Patient DOES have decision making capacity at this time and is able to give some reason and communicate/appreciate the risks, benefits to treatment. This however may fluctuate as patient appears to be impulsive and may be craving/withdrawing from alcohol and nicotine. Patient is willing to stay at this time and continue with treatment. -Would recommend the following medication changes/additions: Attempt to cut down/titrated off Librium and cut down on steroids, benzodiazepines and Flexeril whenever possible as this may contribute to acute confusion/delirium in a patient with multiple medical comorbidities who is hospitalized for a significant amount of time. This will be at the discretion of the primary team. -Psychiatry will sign off at this point, please call with any questions. 05/08/19 13:03
[2019-05-08 14:25] VITALS: BMI 35.9
[2019-05-08 16:56] LABS: Glucose,Whole Blood 293 mg/dL (75-99)
[2019-05-08 20:31] LABS: Glucose,Whole Blood 180 mg/dL (75-99)
[2019-05-08] MEDS: LORazepam 2 MG/ML INJ IV PRN (22:21)
[2019-05-09] MEDS: VANCOMYCIN 2,000 MG in SODIUM CHLORIDE 0.9% 500 ML 500 ML IVPB SCH ×2 (01:17→14:44)
[2019-05-09] MEDS: HYDROcodone/APAP 5-325MG 1 EACH TAB PO PRN (05:19)
[2019-05-09] MEDS: PANTOPRAZOLE 40 MG TABLET PO SCH (05:19)
[2019-05-09] MEDS: methylPREDNISolone SOD SUCCI 125 MG/2 ML VIAL IV SCH ×3 (05:20→20:31)
[2019-05-09] MEDS: THIAMINE 100 MG TAB PO SCH ×2 (05:20→17:25)
[2019-05-09 06:06] LABS: Glucose,Whole Blood 166 mg/dL (75-99)
[2019-05-09 06:19] LABS: Anisocytosis Moderate; Basophils % (A) 0 %; Eosinophils % (A) 0 %; HCT 39.9 % (39.0-53.0); HGB 11.1 gm/dL (13.0-17.5); Hypochromasia Marked; Lymphocytes # (A) 0.3 k/uL (1.0-4.8); Lymphocytes % (A) 3 %; MCH 27.4 pg (25.0-35.0); MCHC 27.9 g/dL (31.0-37.0); MCV 98.3 fL (80.0-100.0); Macrocytosis Moderate; Mean Platelet Volume 7.2; Monocytes # (A) 0.6 k/uL (0-1.0); Monocytes % (A) 5 %; Neutrophils % (A) 91 %; Platelet Count 300 k/uL (150-450); RBC 4.06 m/uL (4.30-5.90); RDW 23.9 % (11.5-15.5)
[2019-05-09 06:27] LABS: African American GFR (CKD) >90 (>60 ml/min/1.73 sqM); Anion Gap 6 mmol/L; Blood Urea Nitrogen 28 mg/dL (9-20); Calcium 9.6 mg/dL (8.4-10.2); Carbon Dioxide 38 mmol/L (22-30); Chloride 94 mmol/L (98-107); Glucose 139 mg/dL (74-99); Non-African American GFR(CKD) >90 (>60 ml/min/1.73 sqM); Potassium 5.4 mmol/L (3.5-5.1); Sodium 138 mmol/L (137-145)
[2019-05-09] MEDS: INSULIN ASPART (NovoLOG) 100 UNIT/ML VIAL SQ SCH ×4 (06:32→22:04)
[2019-05-09] MEDS: IPRATROPIUM-ALBUTEROL 3 ML NEB INHALATION SCH ×5 (07:27→23:54)
--- NOTE | 2019-05-09 08:00 | XR ---
EXAMINATION TYPE: XR chest 2V DATE OF EXAM: 05/09/2019 COMPARISON: 05/06/2019: 13 INDICATION: Dyspnea TECHNIQUE: Frontal and lateral views of the chest are obtained. FINDINGS: The heart size is normal. The pulmonary vasculature is normal. Diffuse increased nodularity is present throughout bilateral lung previously. IMPRESSION: 1. Diffuse nodularity throughout bilateral lung moore.
[2019-05-09] MEDS: NICOTINE 21MG/24HR PATCH TRANSDERM SCH (08:38)
[2019-05-09] MEDS: MEROPENEM 1 GM in SODIUM CHLORIDE 0.9% 100 ML IVPB SCH ×3 (08:38→22:05)
[2019-05-09] MEDS: GABAPENTIN 400 MG CAP PO SCH ×2 (08:39→20:28)
[2019-05-09] MEDS: METOPROLOL TARTRATE 50 MG TAB PO SCH ×3 (08:39→20:27)
[2019-05-09] MEDS: CYCLOBENZAPRINE 10 MG TAB PO SCH ×3 (08:39→20:29)
[2019-05-09] MEDS: FERROUS SULFATE 325 MG TAB PO SCH ×2 (08:39→20:29)
[2019-05-09] MEDS: HEPARIN SODIUM,PORCINE 5,000 UNIT/ML 1 ML VIAL SQ SCH ×2 (08:39→20:29)
[2019-05-09] MEDS: FUROSEMIDE 40 MG TAB PO SCH ×2 (08:39→17:25)
[2019-05-09] MEDS: SPIRONOLACTONE 25 MG TAB PO SCH ×2 (08:39→20:28)
[2019-05-09] MEDS: VERAPAMIL 80 MG TAB PO SCH ×4 (08:39→20:28)
[2019-05-09] MEDS: hydrOXYzine PAMOATE 25 MG CAP PO SCH ×2 (08:39→20:28)
[2019-05-09] MEDS: ATORVASTATIN 20 MG TAB PO SCH (08:39)
[2019-05-09] MEDS: BACITRACIN 500 UNIT/GM OINT 28.4 GM TUBE TOPICAL SCH (08:40)
[2019-05-09] MEDS: chlordiazePOXIDE 25 MG CAP PO SCH (08:54)
[2019-05-09] MEDS ORDERED: FUROSEMIDE 10 MG/ML 4 ML VIAL IV STA (10:23)
--- NOTE | 2019-05-09 10:27 | P.PN ---
Subjective per records: 54-year-old gentleman who has a known history of atrial fibrillation, COPD, DVT, GERD, hyperlipidemia, liver disease, liver cirrhosis, chronic EtOH abuse since he was a teenager; admitted to the hospital with atrial flutter and EtOH intoxication/withdrawal 05/04/2019 Patient is seen and evaluated in room at bedside; patient remains in atrial fibrillation with controlled heart rate in 90s; cardiology is following and rec ommending to increase metoprolol up to 50 mg 3 times a day and decrease atorvastatin to 20 mg daily; patient remains on CIWA protocol; does have history of alcoholic liver disease/ascites; we will consult GI for further recommendations 05/05/2019 Patient is seen and evaluated at bedside; was quite anxious and agitated earlier today with a CIWA score of 15; patient was given IV Ativan per protocol; I have started patient on Librium 20 mg by mouth 4 times a day along with CIWA protocol Cardiology has evaluated patient for paroxysmal atrial fibrillation; verapamil is increased to 80 mg 4 times a day; cardiology recommending discharge if heart rate remained stable Patient remains quite dyspneic requiring 5 L of oxygen; pulmonary has evaluated patient; chest x-ray with possible old granulomatous disease; recommending to titrate FiO2 to maintain O2 saturation greater than 90%; patient is started on bronchodilators and IV Solu-Medrol Patient has been evaluated by GI service and recommending follow-up as an outpatient for EtOH induced liver disease 05/06/2019 Patient is seen and evaluated for follow-up; remains on selective care unit; patient was more agitated and disoriented earlier this morning and was walking down the hallway naked; remains on IV Ativan per CIWA protocol; somewhat more awake and alert at the time of my exam; we will continue with current dose of Librium and possibly start tapering off in next 24 hours; patient remains on O2 5 L per nasal cannula keeping SpO2 greater than 92%; pulmonary service is following and recommending to continue with current bronchodilator therapy; we will continue with IV fluids, thiamine and folic acid; continue with current dose of Librium and Ativan per CIWA protocol; patient will follow-up with GI as an outpatient for EtOH induced liver disease Subjective: 05/07/2019 Patient is seen and examined by me for first time today. Patient is a pleasant 54 years old male, obese who presents with a fall related to his alcohol intox ication. Patient drinks 6 beers per day and smokes 1 pack per day, no illicit tracts. He he feels generally weak, today he is awake and alert 3, no signs of alcohol withdrawal or delirium tremens however remains on CIWA protocol and on Librium 25 mg by mouth every 8 hours. Also is on 6 L of oxygen via nasal cannula and he is saturating high 80s-low 90s, patient is not on home oxygen. CTA of the chest showing patchy infiltrates and atelectasis with numerous peripheral pulmonary nodule consistent with a granulomatous disease, pulmonary progressive disease. No pulmonary embolism. MAPS checked today shows he was not on [place], Librium, Ativan or benzodiazepine., However he was on gabapentin 600 mg 4 times a day. Patient couldn't walk to the bathroom with little difficulty. He denies e xertional dyspnea. However he has cough and yellowish/clear phlegm. No chest pain. Patient remains on cefazolin, IV vancomycin, Librium and Ativan when necessary, Enrique is on solu-Medrol 60 mg PT/OT recommended home health care 05/08/2019 Patient is awake and oriented to time, place and person this morning, however he could not remember why he was in the hospital and what medical problems he had although I talked to him about them yesterday. And I reoriented him again about his medical problem today and eventually he agrees to stay in the hospital and take medication. Patient was trying to leave AMA yesterday, family came to visit him yesterday and eventually he stayed in the hospital. This morning he was still in the bed side nurse that he wanted to leave again and he was refusing his medication, when I went to see the patient and family wanted him with his illnesses he then agrees to stay in the hospital and take medication. Sitter is at bedside for safety. We going to call psych consult to assess his capacity as he was refusing treatment at times and wanted to leave AMA. Currently patient is agreeable to send hospital but if he tries to leave we will petition him, also will keep sitter at bedside. Patient is slightly tachycardic and he is saturating 93% on 6 L oxygen. A febrile. He has leukocytosis of 11.8 K today but also is on steroids. BMP and electrolytes are unremarkable. Patient remains on cefazolin and IV vancomycin, he remains on Librium 25 mg decided to CIWA protocol, he is on Solu-Medrol 60 mg and gabapentin 1200 twice daily. Patient authorized me to talk to his family including his sister Remedios at [phone], after pt allowed me to you. I call her and discussed the case with her and she agreeable with the plan Discussed with staff 05/09/2019 Patient is awake and oriented day but his more sleepy. Patient showed understanding as by psychiatrist evaluation patient has capacity to make medical decision. I explained that to the patient and informed him he is not ready to be discharged. He is willing to stay in the hospital for now. I told the patient were not holding him against his will, however is not medically clear. Patient still on 6 liters ofxygen via nasal cannula. He is Still coughing and have some breathing difficulty. He denies chest pain. We will lower his Librium to 25 mg twice a day. Still tachycardic at 120-125. He saturating 85-93% on 5-6 L oxygen via nasal cannula. His WBC is 12.0 K. Hemoglobin stable. Potassium 5.4. Low potassium diet is ordered. Repeat chest x-ray showing diffuse nodularity throughout both lung moore oriented patient remains on vancomycin, we going to switch cefazolin to cefepime. Patient also on meropenem. Review of systems CONSTITUTIONAL: No fever, no malaise, no fatigue. HEENT: No recent visual problems or hearing problems. Denied any sore throat. CARDIOVASCULAR: no syncope. PULMONARY: no hemoptysis. GASTROINTESTINAL: No diarrhea, no nausea, no vomiting, no abdominal pain. Normoactive bowel sounds. NEUROLOGICAL: No headaches, no weakness, no numbness. HEMATOLOGICAL: Denies any bleeding or petechiae. GENITOURINARY: Denies any burning micturition, frequency, or urgency. MUSCULOSKELETAL/RHEUMATOLOGICAL: Denies any joint pain, swelling, or any muscle pain. ENDOCRINE: Denies any polyuria or polydipsia. Active Medications Generic Name Dose Route Start Last Admin Trade Name Freq PRN Reason Stop Dose Admin Hydrocodone Bitart/Acetaminophen 1 each 05/02/19 19:45 05/09/19 05:19 [place]wick 5-325 PO 1 each Q6HR PRN Administration Pain Albuterol/Ipratropium 3 ml 05/03/19 02:00 05/06/19 19:52 Duoneb 0.5 Mg-3 Mg/3 Ml Soln INHALATION 3 ml RT-Q6H PRN Administration Shortness Of Breath Albuterol/Ipratropium 3 ml 05/07/19 02:00 05/09/19 07:27 Duoneb 0.5 Mg-3 Mg/3 Ml Soln INHALATION 3 ml RT-Q6H [facility] Administration Atorvastatin Calcium 20 mg 05/05/19 09:00 05/09/19 08:39 Lipitor PO 20 mg DAILY LUCIA Administration Bacitracin 1 applic 05/04/19 09:00 05/09/19 08:40 Bacitracin Oint TOPICAL 1 applic DAILY LUCIA Administration Chlordiazepoxide HCl 25 mg 05/09/19 21:00 Librium PO BID LUCIA Cyclobenzaprine HCl 10 mg 05/02/19 22:00 05/09/19 08:39 Flexeril PO 10 mg TID LUCIA Administration Ferrous Sulfate 325 mg 05/02/19 21:00 05/09/19 08:39 Feosol PO 325 mg BID [facility] Administration Furosemide 40 mg 05/08/19 09:00 05/09/19 08:39 Lasix PO 40 mg BID@0900,1600 [facility] Administration Gabapentin 1,200 mg 05/02/19 21:00 05/09/19 08:39 Neurontin PO 1,200 mg BID [facility]UCIA Administration Heparin Sodium (Porcine) 5,000 unit 05/03/19 21:00 05/09/19 08:39 Heparin SQ 5,000 unit Q12HR [facility] Administration Hydroxyzine Pamoate 50 mg 05/02/19 21:00 05/08/19 20:04 Vistaril PO 50 mg HS [facility] Administration Hydroxyzine Pamoate 25 mg 05/03/19 09:00 05/09/19 08:39 Vistaril PO 25 mg QAM [facility] Administration Meropenem 1 gm/ Sodium 100 mls @ 200 mls/hr 05/07/19 08:00 05/09/19 08:38 Chloride IVPB 200 mls/hr Q8HR [facility] Administration Protocol Vancomycin HCl 2,000 mg/ 500 mls @ 167 mls/hr 05/08/19 02:00 05/09/19 01:17 Sodium Chloride IVPB 167 mls/hr Q12H [facility] Administration Cefepime HCl 1 gm/ Sodium 50 mls @ 100 mls/hr 05/09/19 11:00 Chloride IVPB Q12HR [facility] Insulin Aspart 0 unit 05/07/19 17:30 05/09/19 06:32 Novolog SQ 3 unit ACHS [facility] Administration Protocol Lorazepam 1 mg 05/02/19 16:25 05/08/19 22:21 Ativan IV 1 mg Q2HR PRN Administration CIWA 8 or 9 Lorazepam 1 mg 05/02/19 16:25 05/06/19 06:38 Ativan IV 1 mg Q1HR PRN Administration CIWA 10 to 15 Methylprednisolone Sodium Succinate 60 mg 05/07/19 06:00 05/09/19 05:20 Solu-Medrol IV 60 mg Q8H [facility] Administration Metoprolol Tartrate 50 mg 05/04/19 16:00 05/09/19 08:39 Lopressor PO 50 mg TID [facility]IA Administration Miscellaneous Information 1 each 05/03/19 12:01 Magnesium Per Protocol MISCELLANE DAILY PRN Per Protocol Protocol Miscellaneous Information 0 each 05/09/19 13:00 Vancomycin Trough Due MISCELLANE 05/09/19 13:01 DIRECTED ONE Naloxone HCl 0.2 mg 05/02/19 16:30 Narcan IV Q2M PRN Opioid Reversal Nicotine 1 patch 05/05/19 16:15 05/09/19 08:38 Habitrol 21mg/24hr Patch TRANSDERM 1 patch DAILY [facility] Administration Pantoprazole Sodium 40 mg 05/04/19 07:30 05/09/19 05:19 Protonix PO 40 mg AC-[id number] [facility] Administration Spironolactone 50 mg 05/02/19 21:00 05/09/19 08:39 Aldactone PO 50 mg BID [facility]UC[facility] Administration Thiamine HCl 100 mg 05/03/19 07:30 05/09/19 05:20 Vitamin B-1 PO 100 mg BID-W/MEALS [facility] Administration Verapamil HCl 80 mg 05/05/19 13:00 05/09/19 08:39 Isoptin PO 80 mg QID [facility] Administration Objective - Vital Signs Vital signs: Vital Signs Temp 97.6 F 05/09/19 08:00 Pulse 125 H 05/09/19 08:00 Resp 18 05/09/19 08:00 BP 120/87 05/09/19 08:00 Pulse Ox 85 L 05/09/19 07:30 Intake & Output 05/08/19 05/09/19 05/09/19 18:59 06:59 18:59 Intake Total 1670 770 240 Output Total 510 Balance 1670 260 240 Weight 127.1 kg 125.4 kg Intake: IV 50 50 ceFAZolin 2 gm In Sodium 50 50 Chloride 0.9% 50 ml @ 100 mls/hr IVPB Q8HR [facility] Rx# :[id number] Intake, IV Titration 100 600 Amount Meropenem 1 gm In Sodium 100 100 Chloride 0.9% 100 ml @ 200 mls/hr IVPB Q8HR [facility] Rx#:[id number] Vancomycin 2,000 mg In 500 Sodium Chloride 0.9% 500 ml 500 ml @ 167 mls/hr IVPB Q12H [facility] Rx#: [id number] Oral 1520 120 240 Output: Urine 450 Stool 60 Other: Voiding Method Toilet Urinal # Voids 1 - Exam -GENERAL: The patient is alert and oriented x3, not in any acute distress. Obese HEENT: Pupils are round and equally reacting to light. EOMI. No scleral icterus. No conjunctival pallor. Normocephalic, atraumatic. No pharyngeal erythema. No thyromegaly. CARDIOVASCULAR: S1 and S2 present. No murmurs, rubs, or gallops. -PULMONARY: Chest is clear to auscultation, decreased air entry on both sides. No obvious wheezing or crackles -ABDOMEN: Soft, nontender, distended due to fat (ultrasound showed no ascites), normoactive bowel sounds. No palpable organomegaly. MUSCULOSKELETAL: No joint swelling or deformity. EXTREMITIES: No cyanosis, clubbing, or pedal edema. NEUROLOGICAL: Gross neurological examination did not reveal any focal deficits. SKIN: No rashes. no petechiae. - Labs CBC & Chem 7: 05/09/19 05:43 05/09/19 05:43 Labs: Abnormal Lab Results - Last 24 Hours (Table) 05/08/19 05/08/19 05/08/19 Range/Units 11:51 16:47 20:29 WBC (3.8-10.6) k/uL RBC (4.30-5.90) m/uL Hgb (13.0-17.5) gm/dL MCHC (31.0-37.0) g/dL RDW (11.5-15.5) % Neutrophils # (1.3-7.7) k/uL Lymphocytes # (1.0-4.8) k/uL Potassium (3.5-5.1) mmol/L Chloride (98-107) mmol/L Carbon Dioxide (22-30) mmol/L BUN (9-20) mg/dL Glucose (74-99) mg/dL POC Glucose (mg/dL) 139 H 293 H 180 H (75-99) mg/dL 05/09/19 05/09/19 05/09/19 Range/Units 05:43 05:43 06:05 WBC 12.0 H (3.8-10.6) k/uL RBC 4.06 L (4.30-5.90) m/uL Hgb 11.1 L (13.0-17.5) gm/dL MCHC 27.9 L (31.0-37.0) g/dL RDW 23.9 H (11.5-15.5) % Neutrophils # 11.0 H (1.3-7.7) k/uL Lymphocytes # 0.3 L (1.0-4.8) k/uL Potassium 5.4 H (3.5-5.1) mmol/L Chloride 94 L (98-107) mmol/L Carbon Dioxide 38 H (22-30) mmol/L BUN 28 H (9-20) mg/dL Glucose 139 H (74-99) mg/dL POC Glucose (mg/dL) 166 H (75-99) mg/dL Assessment and Plan Assessment: acute hypoxic respiratory failure Acute COPD exacerbation Acute tracheobronchitis A. fib with RVR on anticoagulation due to noncompliance and high risk of falling Alcohol intoxication and abuse Alcohol withdrawal Fall secondary to deconditioning and above Liver cirrhosis, alcoholic liver disease Obesity Electrolyte abnormality with hypo-magnesium anemia and hyperkalemia Progressive patchy infiltrate and atelectasis with a numerous peripheral small pulmonary nodule consistent with granulomatous disease with no pulmonary embolism. Evaluated by wool dyer Plan: This is a pleasant 54 years old male who presents with A. fib, alcohol abuse/withdrawal, fall, COPD. Continue with recommendation by pulmonary team, follow-up recommendation by cardiology team. Continue with antibiotics and check cefazolin to cefepime, continue with steroids. Continue with Librium at low dose and CIWA protocol. Continue with vitamins. Keep sitter at bedside, psych consult for capacity, patient agreeable to stay in the hospital for now, we'll going to petition the patient if he decides to leave AMA. Discussed with staff Labs and medication were reviewed.. Continue same treatment. Continue with symptomatic treatment. Resume home medication. Monitor lytes and vitals. DVT and GI prophylaxis. Further recommendations of the clinical course of the patient DVT prophylaxis: Subcutaneous heparin GI Prophylaxis: PPI PT/OT: Home health care, ordered Prognosis is guarded
[2019-05-09 12:16] LABS: Glucose,Whole Blood 167 mg/dL (75-99)
[2019-05-09] MEDS: CEFEPIME 1 GM in SODIUM CHLORIDE 0.9% 50 ML IVPB SCH ×2 (12:21→20:27)
[2019-05-09] MEDS ORDERED: VANCOMYCIN TROUGH DUE 1 EACH MISC MISCELLANE ONE (13:00)
--- NOTE | 2019-05-09 14:15 | P.PN ---
Subjective Progress Note Date: 05/09/19 Principal diagnosis: acute hypoxic respiratory failure due to acute COPD exacerbation A 54-year-old gentleman with a known history of alcoholism with daily and ongoing drinking. He presented here to the emergency room on 05/02/2019 after sustaining a fall. He was quite intoxicated. He was also found to be in atrial fibrillation with a rapid ventricular response. Serum alcohol level 160. Has a history of DVT, atrial fibrillation, obesity, and ongoing tobacco dependence, morbid obesity. He is seen today in consultation for his suspected COPD. Earlier today he developed restlessness anxiety agitation and was given Ativan and eventually Librium. He is currently arousable but hypoxic requiring 5 L high flow nasal cannula. X-ray shows old granulomatous disease. The patient is seen today 05/06/2019 in follow-up in the regular medical floor. He is awake and alert in no acute distress. Sitting up at the bedside. He is somewhat agitated and disoriented at times. Walking down the hallway naked. Looking for cigarettes and a sorter upholstery parts. Family is currently at the bedside. His breathing is improved today compared to yesterday. He is more awake and alert. Continue O2 saturation in the 90s on 5 L nasal cannula. Continued on bronchodilators. On 05/07/2019 patient seen in follow-up on selective care unit, he is resting in bed, currently on 6 L of oxygen his pulse ox is 88%, still bronchospastic on today's exam, with basilar crackles, nonproductive cough. Patient is awake, and oriented 3, operative, non-agitated, and his confusion seems to have improved. last night was given a dose of IV Lasix, chest x-ray was negative for any acute pulmonary process, and showed old granulomatous disease, today patient continues on oral dose Lasix [address] angios of the chest was obtained in view of elevated d-dimer of 2.17, and was negative for any evidence of pulmonary embolism, and showed patchy infiltrates and atelectasis and scarring in both lungs, and numerous scattered peripheral small pulmonary nodules consistent with granulomatous disease. patient continues on Kefzol for skin abrasions involving his left lower extremity, and meropenem and vancomycin were added for possibility of pneumonic infiltrates On 05/08/2019 patient seen in follow-up on selective care unit. He is resting comfortably in bed, he states his breathing is improving, he sounds better on today's exam, still bronchospastic but less wheezy, yesterday we increased the patient's oral dose of Lasix, and currently patient is on 40 mg orally twice daily, remains on empiric antibiotics, he is not producing any significant amount of phlegm, remains afebrile, FiO2 is being weaned down, currently patient is down to 5 L. Mentation seems to be improving, patient is answering questions appropriately, seems to be cooperative for the most part but at times may get impulsive, and for that reason patient has a occupational safety specialist at the bedside. he remains on combination of vancomycin and meropenem, and cefazolin On 05/09/2019 patient seen in follow-up on selective care unit, he is resting comfortably in bed, in no acute distress, still remains on 6 L of oxygen, and we have not been able to wean it down, patient earlier was turned down to 4 L and his pulse ox dropped to 84%, remains tachycardic with a heart rate up but in sinus mechanism. Afebrile. Still bronchospastic on today's exam, with some coarse bibasilar crackles. Congested cough, but no significant phlegm production, patient continues on cefepime, meropenem and vancomycin. IV steroids and nebulized bronchodilators. Patient seems to be appropriate, patient is cooperative, no signs of DTs Objective - Vital Signs Vital signs: Vital Signs Temp 97.6 F 05/09/19 08:00 Pulse 124 H 05/09/19 13:14 Resp 20 05/09/19 12:00 BP 113/81 05/09/19 12:00 Pulse Ox 90 L 05/09/19 12:05 Intake & Output 05/08/19 05/09/19 05/09/19 18:59 06:59 18:59 Intake Total 1670 770 240 Output Total 510 120 Balance 1670 260 120 Weight 127.1 kg 125.4 kg Intake: IV 50 50 ceFAZolin 2 gm In Sodium 50 50 Chloride 0.9% 50 ml @ 100 mls/hr IVPB Q8HR [facility] Rx# :[id number] Intake, IV Titration 100 600 Amount Meropenem 1 gm In Sodium 100 100 Chloride 0.9% 100 ml @ 200 mls/hr IVPB Q8HR [facility] Rx#:[id number] Vancomycin 2,000 mg In 500 Sodium Chloride 0.9% 500 ml 500 ml @ 167 mls/hr IVPB Q12H [facility] Rx#: [id number] Oral 1520 120 240 Output: Urine 450 Stool 60 120 Other: Voiding Method Toilet Toilet Urinal Urinal # Voids 1 - Exam GENERAL EXAM: Alert, pleasant 54-year-old white male, on 6 L of oxygen with pulse ox of 90%, mildly dyspneic, in no apparent distress. HEAD: Normocephalic/atraumatic. healing abrasion on the left side of his f orehead EYES: Normal reaction of pupils, equal size. Conjunctiva pink, sclera white. NOSE: Clear with pink turbinates. THROAT: No erythema or exudates. NECK: No masses, no JVD, no thyroid enlargement, no adenopathy. CHEST: No chest wall deformity. Symmetrical expansion. LUNGS: Equal air entry with diffuse wheezes, and basilar rales CVS: Regular rate and rhythm, normal S1 and S2, no gallops, no murmurs, no rubs ABDOMEN: Soft, nontender. No hepatosplenomegaly, normal bowel sounds, no guarding or rigidity. EXTREMITIES: No clubbing, no edema, no cyanosis, 2+ pulses and upper and lower extremities. MUSCULOSKELETAL: Muscle strength and tone normal. SPINE: No scoliosis or deformity SKIN: abrasion on his left alcaraz, with limited amount of serous drainage CENTRAL NERVOUS SYSTEM: Alert and oriented -3. No focal deficits, tone is normal in all 4 extremities. PSYCHIATRIC: Alert and oriented -3. Appropriate affect. Intact judgment and insight. - Labs CBC & Chem 7: 05/09/19 05:43 05/09/19 05:43 Labs: Abnormal Lab Results - Last 24 Hours (Table) 05/08/19 05/08/19 05/09/19 Range/Units 16:47 20:29 05:43 WBC 12.0 H (3.8-10.6) k/uL RBC 4.06 L (4.30-5.90) m/uL Hgb 11.1 L (13.0-17.5) gm/dL MCHC 27.9 L (31.0-37.0) g/dL RDW 23.9 H (11.5-15.5) % Neutrophils # 11.0 H (1.3-7.7) k/uL Lymphocytes # 0.3 L (1.0-4.8) k/uL Potassium (3.5-5.1) mmol/L Chloride (98-107) mmol/L Carbon Dioxide (22-30) mmol/L BUN (9-20) mg/dL Glucose (74-99) mg/dL POC Glucose (mg/dL) 293 H 180 H (75-99) mg/dL 05/09/19 05/09/19 05/09/19 Range/Units 05:43 06:05 12:14 WBC (3.8-10.6) k/uL RBC (4.30-5.90) m/uL Hgb (13.0-17.5) gm/dL MCHC (31.0-37.0) g/dL RDW (11.5-15.5) % Neutrophils # (1.3-7.7) k/uL Lymphocytes # (1.0-4.8) k/uL Potassium 5.4 H (3.5-5.1) mmol/L Chloride 94 L (98-107) mmol/L Carbon Dioxide 38 H (22-30) mmol/L BUN 28 H (9-20) mg/dL Glucose 139 H (74-99) mg/dL POC Glucose (mg/dL) 166 H 167 H (75-99) mg/dL Assessment and Plan Plan: #1. acute hypoxic respiratory failure due to to acute exacerbation of COPD, chest x-rays showed old granulomatous disease but no acute pulmonary process, CTA chest was negative for any evidence of pulmonary embolism, and patchy infiltrates/atelectasis and scarring in both lungs #2. Falls secondary to intoxication and some concern regarding alcohol wit hdrawal syndrome. #3. Atrial fibrillation with rapid ventricular response, not on anticoagulants due to frequent falls and medication compliance #4. Chronic and ongoing tobacco dependence suspect some component of chronic obstructive pulmonary disease #5. Liver cirrhosis. #6. Normocytic anemia #7. History of DVT #8. Hyperlipidemia. #9. Chronic alcohol abuse with pending DTs Plan: We'll give the patient dose of IV Lasix today, continue with maintenance dose Lasix, still bronchospastic, we were unable to wean the oxygen down, remains on 6 L, continue current antibiotics, will send a procalcitonin level. No altered mentation, no fever. Today's chest x-ray has been reviewed showing stable findings of diffuse nodularity involving both lungs related to old granulomatous disease. No new pulmonary infiltrates. I performed a history & physical examination of the patient and discussed their management with my nurse practitioner, Le Calderon. I reviewed the nurse practitioner's note and agree with the documented findings and plan of care. Lung sounds are positive for diffuse wheezes throughout the lung moore. The findings and the impression was discussed with the patient. I attest to the documentation by the nurse practitioner. Time with Patient: Less than 30
[2019-05-09 17:01] LABS: Glucose,Whole Blood 192 mg/dL (75-99)
[2019-05-09 20:49] LABS: Glucose,Whole Blood 214 mg/dL (75-99)
[2019-05-09] MEDS ORDERED: chlordiazePOXIDE 25 MG CAP PO SCH (21:00)
[2019-05-10] MEDS: VANCOMYCIN 2,250 MG in SODIUM CHLORIDE 0.9% 500 ML 500 ML IVPB SCH ×3 (00:10→23:09)
[2019-05-10] MEDS: methylPREDNISolone SOD SUCCI 125 MG/2 ML VIAL IV SCH ×3 (03:56→21:17)
[2019-05-10] MEDS: PANTOPRAZOLE 40 MG TABLET PO SCH (05:24)
[2019-05-10] MEDS: THIAMINE 100 MG TAB PO SCH ×2 (05:24→17:58)
[2019-05-10 06:09] LABS: Glucose,Whole Blood 175 mg/dL (75-99)
[2019-05-10] MEDS: INSULIN ASPART (NovoLOG) 100 UNIT/ML VIAL SQ SCH ×3 (06:15→18:12)
[2019-05-10 07:03] LABS: African American GFR (CKD) >90 (>60 ml/min/1.73 sqM); Anisocytosis Moderate; Blood Urea Nitrogen 33 mg/dL (9-20); Calcium 9.9 mg/dL (8.4-10.2); Chloride 89 mmol/L (98-107); Glucose 135 mg/dL (74-99); HCT 41.8 % (39.0-53.0); HGB 11.8 gm/dL (13.0-17.5); Hypochromasia Marked; MCH 28.1 pg (25.0-35.0); MCHC 28.1 g/dL (31.0-37.0); MCV 100.1 fL (80.0-100.0); Macrocytosis Marked; Magnesium 1.5 mg/dL (1.6-2.3); Mean Platelet Volume 7.3; Non-African American GFR(CKD) >90 (>60 ml/min/1.73 sqM); Platelet Count 327 k/uL (150-450); Potassium 5.1 mmol/L (3.5-5.1); RBC 4.18 m/uL (4.30-5.90); RDW 23.6 % (11.5-15.5); Sodium 139 mmol/L (137-145); WBC 11.4 k/uL (3.8-10.6)
[2019-05-10 07:10] LABS: Anion Gap 5 mmol/L
[2019-05-10 07:17] LABS: Lymphocytes # (M) 0.46 k/uL (1.0-4.8); Monocytes # (M) 0.57 k/uL (0-1.0); Neutrophils # (M) 10.37 k/uL (1.3-7.7); Neutrophils % (M) 91 %; Nucleated Red Blood Cells 0 /100 WBC (0-0); Total Cells Counted 100
[2019-05-10] MEDS: IPRATROPIUM-ALBUTEROL 3 ML NEB INHALATION SCH ×3 (07:21→20:31)
[2019-05-10 07:48] LABS: Carbon Dioxide 45 mmol/L (22-30)
[2019-05-10] MEDS: MEROPENEM 1 GM in SODIUM CHLORIDE 0.9% 100 ML IVPB SCH ×3 (08:41→23:09)
[2019-05-10 09:30] LABS: ABG Oxygen Saturation 91.2 % (94-97); ABG PH 7.29 (7.35-7.45); ABG PO2 73 mmHg (83-108); ABG TCO2 47 mmol/L (19-24); Allen Test Performed? Yes
[2019-05-10 09:36] LABS: ABG HCO3 44 mmol/L (21-25); ABG PCO2 92 mmHg (35-45)
--- NOTE | 2019-05-10 09:53 | XR ---
EXAMINATION TYPE: XR chest 1V portable DATE OF EXAM: 05/10/2019 COMPARISON: 05/09/2019 HISTORY: Hypoxic respiratory failure TECHNIQUE: Single frontal view of the chest is obtained. FINDINGS: There are innumerable bilateral subcentimeter pulmonary nodules. Minimal retrocardiac line ar airspace disease, likely atelectasis. Cardia mediastinal silhouette is upper limits of normal and stable. Osseous structures are grossly intact. IMPRESSION: 1. Linear left basilar retrocardiac airspace disease, likely atelectasis. 2. Innumerable pulmonary nodules, which can be seen with granulomatous disease, tuberculosis, or sequ agata of varicella pneumonia.
--- NOTE | 2019-05-10 09:59 | P.PN ---
Subjective per records: 54-year-old gentleman who has a known history of atrial fibrillation, COPD, DVT, GERD, hyperlipidemia, liver disease, liver cirrhosis, chronic EtOH abuse since he was a teenager; admitted to the hospital with atrial flutter and EtOH intoxication/withdrawal 05/04/2019 Patient is seen and evaluated in room at bedside; patient remains in atrial fibrillation with controlled heart rate in 90s; cardiology is following and rec ommending to increase metoprolol up to 50 mg 3 times a day and decrease atorvastatin to 20 mg daily; patient remains on CIWA protocol; does have history of alcoholic liver disease/ascites; we will consult GI for further recommendations 05/05/2019 Patient is seen and evaluated at bedside; was quite anxious and agitated earlier today with a CIWA score of 15; patient was given IV Ativan per protocol; I have started patient on Librium 20 mg by mouth 4 times a day along with CIWA protocol Cardiology has evaluated patient for paroxysmal atrial fibrillation; verapamil is increased to 80 mg 4 times a day; cardiology recommending discharge if heart rate remained stable Patient remains quite dyspneic requiring 5 L of oxygen; pulmonary has evaluated patient; chest x-ray with possible old granulomatous disease; recommending to titrate FiO2 to maintain O2 saturation greater than 90%; patient is started on bronchodilators and IV Solu-Medrol Patient has been evaluated by GI service and recommending follow-up as an outpatient for EtOH induced liver disease 05/06/2019 Patient is seen and evaluated for follow-up; remains on selective care unit; patient was more agitated and disoriented earlier this morning and was walking down the hallway naked; remains on IV Ativan per CIWA protocol; somewhat more awake and alert at the time of my exam; we will continue with current dose of Librium and possibly start tapering off in next 24 hours; patient remains on O2 5 L per nasal cannula keeping SpO2 greater than 92%; pulmonary service is following and recommending to continue with current bronchodilator therapy; we will continue with IV fluids, thiamine and folic acid; continue with current dose of Librium and Ativan per CIWA protocol; patient will follow-up with GI as an outpatient for EtOH induced liver disease Subjective: 05/07/2019 Patient is seen and examined by me for first time today. Patient is a pleasant 54 years old male, obese who presents with a fall related to his alcohol intox ication. Patient drinks 6 beers per day and smokes 1 pack per day, no illicit tracts. He he feels generally weak, today he is awake and alert 3, no signs of alcohol withdrawal or delirium tremens however remains on CIWA protocol and on Librium 25 mg by mouth every 8 hours. Also is on 6 L of oxygen via nasal cannula and he is saturating high 80s-low 90s, patient is not on home oxygen. CTA of the chest showing patchy infiltrates and atelectasis with numerous peripheral pulmonary nodule consistent with a granulomatous disease, pulmonary progressive disease. No pulmonary embolism. MAPS checked today shows he was not on [place], Librium, Ativan or benzodiazepine., However he was on gabapentin 600 mg 4 times a day. Patient couldn't walk to the bathroom with little difficulty. He denies e xertional dyspnea. However he has cough and yellowish/clear phlegm. No chest pain. Patient remains on cefazolin, IV vancomycin, Librium and Ativan when necessary, Enrique is on solu-Medrol 60 mg PT/OT recommended home health care 05/08/2019 Patient is awake and oriented to time, place and person this morning, however he could not remember why he was in the hospital and what medical problems he had although I talked to him about them yesterday. And I reoriented him again about his medical problem today and eventually he agrees to stay in the hospital and take medication. Patient was trying to leave AMA yesterday, family came to visit him yesterday and eventually he stayed in the hospital. This morning he was still in the bed side nurse that he wanted to leave again and he was refusing his medication, when I went to see the patient and family wanted him with his illnesses he then agrees to stay in the hospital and take medication. Sitter is at bedside for safety. We going to call psych consult to assess his capacity as he was refusing treatment at times and wanted to leave AMA. Currently patient is agreeable to send hospital but if he tries to leave we will petition him, also will keep sitter at bedside. Patient is slightly tachycardic and he is saturating 93% on 6 L oxygen. A febrile. He has leukocytosis of 11.8 K today but also is on steroids. BMP and electrolytes are unremarkable. Patient remains on cefazolin and IV vancomycin, he remains on Librium 25 mg decided to CIWA protocol, he is on Solu-Medrol 60 mg and gabapentin 1200 twice daily. Patient authorized me to talk to his family including his sister Remedios at [phone], after pt allowed me to you. I call her and discussed the case with her and she agreeable with the plan Discussed with staff 05/09/2019 Patient is awake and oriented day but his more sleepy. Patient showed understanding as by psychiatrist evaluation patient has capacity to make medical decision. I explained that to the patient and informed him he is not ready to be discharged. He is willing to stay in the hospital for now. I told the patient were not holding him against his will, however is not medically clear. Patient still on 6 liters ofxygen via nasal cannula. He is Still coughing and have some breathing difficulty. He denies chest pain. We will lower his Librium to 25 mg twice a day. Still tachycardic at 120-125. He saturating 85-93% on 5-6 L oxygen via nasal cannula. His WBC is 12.0 K. Hemoglobin stable. Potassium 5.4. Low potassium diet is ordered. Repeat chest x-ray showing diffuse nodularity throughout both lung moore oriented patient remains on vancomycin, we going to switch cefazolin to cefepime. Patient also on meropenem. 05/10/2019 Patient today is more obtunded, he is awake to verbal and tactile stimuli but more drowsy. He's wheezing significantly. ABG showing that he is retaining CO2 with pH of 7.29 and pCO2 of 92. Patient will be placed on BiPAP machine. His heart rate is around 120, blood pressure 1:30/93, he saturating 95% on 6 L. No fever. WBC is 11.4 K, hemoglobin is 11.8. Creatinine 0.8 Librium was stopped. His CIWA score is around 3. We will continue with Ativan as needed. Review of systems: n/a Active Medications Generic Name Dose Route Start Last Admin Trade Name Freq PRN Reason Stop Dose Admin Hydrocodone Bitart/Acetaminophen 1 each 05/02/19 19:45 05/09/19 05:19 [place] 5-325 PO 1 each Q6HR PRN Administration Pain Albuterol/Ipratropium 3 ml 05/03/19 02:00 05/06/19 19:52 Duoneb 0.5 Mg-3 Mg/3 Ml Soln INHALATION 3 ml RT-Q6H PRN Administration Shortness Of Breath Albuterol/Ipratropium 3 ml 05/07/19 02:00 05/10/19 07:21 Duoneb 0.5 Mg-3 Mg/3 Ml Soln INHALATION 3 ml RT-Q6H LUCIA Administration Atorvastatin Calcium 20 mg 05/05/19 09:00 05/09/19 08:39 Lipitor PO 20 mg DAILY LUCIA Administration Bacitracin 1 applic 05/04/19 09:00 05/09/19 08:40 Bacitracin Oint TOPICAL 1 applic DAILY LUCIA Administration Cyclobenzaprine HCl 10 mg 05/02/19 22:00 05/09/19 20:29 Flexeril PO 10 mg TID LUCIA Administration Ferrous Sulfate 325 mg 05/02/19 21:00 05/09/19 20:29 Feosol PO 325 mg BID LUCIA Administration Furosemide 40 mg 05/10/19 09:15 Lasix IV Q8HR LUCIA Gabapentin 1,200 mg 05/02/19 21:00 05/09/19 20:28 Neurontin PO 1,200 mg BID LUCIA Administration Heparin Sodium (Porcine) 5,000 unit 05/03/19 21:00 05/09/19 20:29 Heparin SQ 5,000 unit Q12HR LUCIA Administration Hydroxyzine Pamoate 50 mg 05/02/19 21:00 05/09/19 20:28 Vistaril PO 50 mg HS LUCIA Administration Hydroxyzine Pamoate 25 mg 05/03/19 09:00 05/09/19 08:39 Vistaril PO 25 mg QAM LUCIA Administration Meropenem 1 gm/ Sodium 100 mls @ 200 mls/hr 05/07/19 08:00 05/10/19 08:41 Chloride IVPB 200 mls/hr Q8HR LUCIA Administration Protocol Cefepime HCl 1 gm/ Sodium 50 mls @ 100 mls/hr 05/09/19 11:00 05/09/19 20:27 Chloride IVPB 100 mls/hr Q12HR LUCIA Administration Vancomycin HCl 2,250 mg/ 500 mls @ 167 mls/hr 05/10/19 00:00 05/10/19 00:10 Sodium Chloride IVPB 167 mls/hr Q12H LUCIA Administration Insulin Aspart 0 unit 05/07/19 17:30 05/10/19 06:15 Novolog SQ Not Given ACHS [facility] Protocol Lorazepam 1 mg 05/02/19 16:25 05/08/19 22:21 Ativan IV 1 mg Q2HR PRN Administration CIWA 8 or 9 Lorazepam 1 mg 05/02/19 16:25 05/06/19 06:38 Ativan IV 1 mg Q1HR PRN Administration CIWA 10 to 15 Methylprednisolone Sodium Succinate 60 mg 05/07/19 06:00 05/10/19 03:56 Solu-Medrol IV 60 mg Q8H LUCIA Administration Metoprolol Tartrate 50 mg 05/04/19 16:00 05/09/19 20:27 Lopressor PO 50 mg TID LUCIA Administration Miscellaneous Information 1 each 05/03/19 12:01 Magnesium Per Protocol MISCELLANE DAILY PRN Per Protocol Protocol Naloxone HCl 0.2 mg 05/02/19 16:30 Narcan IV Q2M PRN Opioid Reversal Nicotine 1 patch 05/05/19 16:15 05/09/19 08:38 Habitrol 21mg/24hr Patch TRANSDERM 1 patch DAILY LUCIA Administration Pantoprazole Sodium 40 mg 05/04/19 07:30 05/10/19 05:24 Protonix PO 40 mg [id number] LUCIA Administration Spironolactone 50 mg 05/02/19 21:00 05/09/19 20:28 Aldactone PO 50 mg BID LUCIA Administration Thiamine HCl 100 mg 05/03/19 07:30 05/10/19 05:24 Vitamin B-1 PO 100 mg BID-W/MEALS LUCIA Administration Verapamil HCl 80 mg 05/05/19 13:00 05/09/19 20:28 Isoptin PO 80 mg QID LUCIA Administration Objective - Vital Signs Vital signs: Vital Signs Temp 97.9 F 05/10/19 03:58 Pulse 127 H 05/10/19 08:00 Resp 19 05/10/19 08:00 BP 130/93 05/10/19 08:00 Pulse Ox 95 05/10/19 08:00 Intake & Output 05/09/19 05/10/19 05/10/19 18:59 06:59 18:59 Intake Total 840 670 Output Total 180 400 Balance 660 270 Weight 123.1 kg Intake: IV 50 ceFAZolin 2 gm In Sodium 50 Chloride 0.9% 50 ml @ 100 mls/hr IVPB Q8HR LUCIA Rx# :[id number] Intake, IV Titration 500 Amount Vancomycin 2,250 mg In 500 Sodium Chloride 0.9% 500 ml 500 ml @ 167 mls/hr IVPB Q12H LUCIA Rx#: [id number] Oral 840 120 Output: Urine 400 Stool 180 Other: Voiding Method Toilet Toilet Toilet Urinal Urinal Urinal # Voids 4 2 - Exam -GENERAL: The patient is alert and oriented x3, not in any acute distress. Obese HEENT: Pupils are round and equally reacting to light. EOMI. No scleral icterus. No conjunctival pallor. Normocephalic, atraumatic. No pharyngeal erythema. No thyromegaly. CARDIOVASCULAR: S1 and S2 present. No murmurs, rubs, or gallops. -PULMONARY: Chest is clear to auscultation, decreased air entry on both sides. No obvious wheezing or crackles -ABDOMEN: Soft, nontender, distended due to fat (ultrasound showed no ascites), normoactive bowel sounds. No palpable organomegaly. MUSCULOSKELETAL: No joint swelling or deformity. EXTREMITIES: No cyanosis, clubbing, or pedal edema. NEUROLOGICAL: Gross neurological examination did not reveal any focal deficits. SKIN: No rashes. no petechiae. - Labs CBC & Chem 7: 05/10/19 05:38 05/10/19 05:38 Labs: Abnormal Lab Results - Last 24 Hours (Table) 05/09/19 05/09/19 05/09/19 Range/Units 12:14 16:57 20:47 WBC (3.8-10.6) k/uL RBC (4.30-5.90) m/uL Hgb (13.0-17.5) gm/dL MCV (80.0-100.0) fL MCHC (31.0-37.0) g/dL RDW (11.5-15.5) % Neutrophils # (Manual) (1.3-7.7) k/uL Lymphocytes # (Manual) (1.0-4.8) k/uL Macrocytosis ABG pH (7.35-7.45) ABG pCO2 (35-45) mmHg ABG pO2 (83-108) mmHg ABG HCO3 (21-25) mmol/L ABG Total CO2 (19-24) mmol/L ABG O2 Saturation (94-97) % Chloride (98-107) mmol/L Carbon Dioxide (22-30) mmol/L BUN (9-20) mg/dL Glucose (74-99) mg/dL POC Glucose (mg/dL) 167 H 192 H 214 H (75-99) mg/dL Magnesium (1.6-2.3) mg/dL 05/10/19 05/10/19 05/10/19 Range/Units 05:38 05:38 06:08 WBC 11.4 H (3.8-10.6) k/uL RBC 4.18 L (4.30-5.90) m/uL Hgb 11.8 L (13.0-17.5) gm/dL MCV 100.1 H (80.0-100.0) fL MCHC 28.1 L (31.0-37.0) g/dL RDW 23.6 H (11.5-15.5) % Neutrophils # (Manual) 10.37 H (1.3-7.7) k/uL Lymphocytes # (Manual) 0.46 L (1.0-4.8) k/uL Macrocytosis Marked A ABG pH (7.35-7.45) ABG pCO2 (35-45) mmHg ABG pO2 (83-108) mmHg ABG HCO3 (21-25) mmol/L ABG Total CO2 (19-24) mmol/L ABG O2 Saturation (94-97) % Chloride 89 L (98-107) mmol/L Carbon Dioxide 45 H* (22-30) mmol/L BUN 33 H (9-20) mg/dL Glucose 135 H (74-99) mg/dL POC Glucose (mg/dL) 175 H (75-99) mg/dL Magnesium 1.5 L (1.6-2.3) mg/dL 05/10/19 Range/Units 09:23 WBC (3.8-10.6) k/uL RBC (4.30-5.90) m/uL Hgb (13.0-17.5) gm/dL MCV (80.0-100.0) fL MCHC (31.0-37.0) g/dL RDW (11.5-15.5) % Neutrophils # (Manual) (1.3-7.7) k/uL Lymphocytes # (Manual) (1.0-4.8) k/uL Macrocytosis ABG pH 7.29 L (7.35-7.45) ABG pCO2 92 H* (35-45) mmHg ABG pO2 73 L (83-108) mmHg ABG HCO3 44 H* (21-25) mmol/L ABG Total CO2 47 H (19-24) mmol/L ABG O2 Saturation 91.2 L (94-97) % Chloride (98-107) mmol/L Carbon Dioxide (22-30) mmol/L BUN (9-20) mg/dL Glucose (74-99) mg/dL POC Glucose (mg/dL) (75-99) mg/dL Magnesium (1.6-2.3) mg/dL Assessment and Plan Assessment: acute hypoxic and hypercapnic respiratory failure Acute COPD exacerbation Acute tracheobronchitis A. fib with RVR on anticoagulation due to noncompliance and high risk of falling Alcohol intoxication and abuse Alcohol withdrawal Fall secondary to deconditioning and above Liver cirrhosis, alcoholic liver disease Obesity Electrolyte abnormality with hypo-magnesium anemia and hyperkalemia Progressive patchy infiltrate and atelectasis with a numerous peripheral small pulmonary nodule consistent with granulomatous disease with no pulmonary embolism. Evaluated by printed circuit board layout designer Plan: This is a pleasant 54 years old male who presents with A. fib, alcohol abuse/withdrawal, fall, COPD. Continue with recommendation by pulmonary team, follow-up recommendation by cardiology team. Continue with antibiotics and check cefazolin to cefepime, continue with steroids. Discontinue Librium and continue with CIWA protocol on as needed basis. Continue with vitamins. Continue with BiPAP as needed Patient was willing to stay in the hospital lately Labs and medication were reviewed.. Continue same treatment. Continue with symptomatic treatment. Resume home medication. Monitor lytes and vitals. DVT and GI prophylaxis. Further recommendations of the clinical course of the patient DVT prophylaxis: Subcutaneous heparin GI Prophylaxis: PPI PT/OT: Home health care, ordered Prognosis is guarded
[2019-05-10] MEDS: CEFEPIME 1 GM in SODIUM CHLORIDE 0.9% 50 ML IVPB SCH ×2 (11:20→20:59)
[2019-05-10 12:07] LABS: Glucose,Whole Blood 269 mg/dL (75-99)
--- NOTE | 2019-05-10 12:20 | P.PN ---
Subjective Progress Note Date: 05/10/19 Principal diagnosis: acute hypoxic respiratory failure due to acute COPD exacerbation A 54-year-old gentleman with a known history of alcoholism with daily and ongoing drinking. He presented here to the emergency room on 05/02/2019 after sustaining a fall. He was quite intoxicated. He was also found to be in atrial fibrillation with a rapid ventricular response. Serum alcohol level 160. Has a history of DVT, atrial fibrillation, obesity, and ongoing tobacco dependence, morbid obesity. He is seen today in consultation for his suspected COPD. Earlier today he developed restlessness anxiety agitation and was given Ativan and eventually Librium. He is currently arousable but hypoxic requiring 5 L high flow nasal cannula. X-ray shows old granulomatous disease. The patient is seen today 05/06/2019 in follow-up in the regular medical floor. He is awake and alert in no acute distress. Sitting up at the bedside. He is somewhat agitated and disoriented at times. Walking down the hallway naked. Looking for cigarettes and a chauffeur airport limousine. Family is currently at the bedside. His breathing is improved today compared to yesterday. He is more awake and alert. Continue O2 saturation in the 90s on 5 L nasal cannula. Continued on bronchodilators. On 05/07/2019 patient seen in follow-up on selective care unit, he is resting in bed, currently on 6 L of oxygen his pulse ox is 88%, still bronchospastic on today's exam, with basilar crackles, nonproductive cough. Patient is awake, and oriented 3, operative, non-agitated, and his confusion seems to have improved. last night was given a dose of IV Lasix, chest x-ray was negative for any acute pulmonary process, and showed old granulomatous disease, today patient continues on oral dose Lasix [address] angios of the chest was obtained in view of elevated d-dimer of 2.17, and was negative for any evidence of pulmonary embolism, and showed patchy infiltrates and atelectasis and scarring in both lungs, and numerous scattered peripheral small pulmonary nodules consistent with granulomatous disease. patient continues on Kefzol for skin abrasions involving his left lower extremity, and meropenem and vancomycin were added for possibility of pneumonic infiltrates On 05/08/2019 patient seen in follow-up on selective care unit. He is resting comfortably in bed, he states his breathing is improving, he sounds better on today's exam, still bronchospastic but less wheezy, yesterday we increased the patient's oral dose of Lasix, and currently patient is on 40 mg orally twice daily, remains on empiric antibiotics, he is not producing any significant amount of phlegm, remains afebrile, FiO2 is being weaned down, currently patient is down to 5 L. Mentation seems to be improving, patient is answering questions appropriately, seems to be cooperative for the most part but at times may get impulsive, and for that reason patient has a safety tech at the bedside. he remains on combination of vancomycin and meropenem, and cefazolin On 05/09/2019 patient seen in follow-up on selective care unit, he is resting comfortably in bed, in no acute distress, still remains on 6 L of oxygen, and we have not been able to wean it down, patient earlier was turned down to 4 L and his pulse ox dropped to 84%, remains tachycardic with a heart rate up but in sinus mechanism. Afebrile. Still bronchospastic on today's exam, with some coarse bibasilar crackles. Congested cough, but no significant phlegm production, patient continues on cefepime, meropenem and vancomycin. IV steroids and nebulized bronchodilators. Patient seems to be appropriate, patient is cooperative, no signs of DTs On 05/10/2019 patient is asked any, he is satting 84% on 6 L, he is obviously cyanotic, gas was obtained showing acute on chronic hypercapnic respiratory failure with pCO2 of 92 and pH of 7.29, pO2 was 73 on 6 L of oxygen. BiPAP was ordered, however patient was combative, confused and he was attempting to go home. BiPAP was applied, stat chest x-ray was obtained, showing linear left basilar retrocardiac airspace disease could be related to atelectasis, and stable innumerable pulmonary nodules. Patient seems to be fluid overloaded with generalized pitting edema in his lower extremities up to his thighs and waist and his abdomen. His oral Lasix has been transitioned to IV Lasix, Riley catheter was placed. Patient continues on antibiotics, his pro-calcitonin level is pending, his been afebrile. bronchospastic on today's exam, continues on IV Solu-Medrol, will be transferred to the unit for closer monitoring repeat blood gas in 1 hour Objective - Vital Signs Vital signs: Vital Signs Temp 97.9 F 05/10/19 03:58 Pulse 130 H 05/10/19 11:23 Resp 19 05/10/19 08:00 BP 130/93 05/10/19 08:00 Pulse Ox 95 05/10/19 08:00 Intake & Output 05/09/19 05/10/19 05/10/19 18:59 06:59 18:59 Intake Total 840 670 0 Output Total 180 400 Balance 660 270 0 Weight 123.1 kg Intake: IV 50 ceFAZolin 2 gm In Sodium 50 Chloride 0.9% 50 ml @ 100 mls/hr IVPB Q8HR [facility] Rx# :[id number] Intake, IV Titration 500 Amount Vancomycin 2,250 mg In 500 Sodium Chloride 0.9% 500 ml 500 ml @ 167 mls/hr IVPB Q12H [facility] Rx#: [id number] Oral 840 120 0 Output: Urine 400 Stool 180 Other: Voiding Method Toilet Toilet Toilet Urinal Urinal Urinal # Voids 4 2 1 # Bowel Movements 0 - Exam GENERAL EXAM: 54-year-old white male, on 6 L of oxygen with pulse ox of 84%, confused, at times agitated, but mostly lethargic right now HEAD: Normocephalic/atraumatic. healing abrasion on the left side of his forehead EYES: Normal reaction of pupils, equal size. Conjunctiva pink, sclera white. NOSE: Clear with pink turbinates. THROAT: No erythema or exudates. NECK: No masses, no JVD, no thyroid enlargement, no adenopathy. CHEST: No chest wall deformity. Symmetrical expansion. LUNGS: Equal air entry with diffuse wheezes, and basilar rales CVS: Regular rate and rhythm, normal S1 and S2, no gallops, no murmurs, no rubs ABDOMEN: Soft, nontender. No hepatosplenomegaly, normal bowel sounds, no guarding or rigidity. EXTREMITIES: No clubbing, no edema, no cyanosis, 2+ pulses and upper and lower extremities. MUSCULOSKELETAL: Muscle strength and tone normal. SPINE: No scoliosis or deformity SKIN: abrasion on his left alcaraz, with limited amount of serous drainage CENTRAL NERVOUS SYSTEM: Alert and oriented -3. No focal deficits, tone is normal in all 4 extremities. PSYCHIATRIC: Alert and oriented -3. Appropriate affect. Intact judgment and insight. - Labs CBC & Chem 7: 05/10/19 05:38 05/10/19 05:38 Labs: Abnormal Lab Results - Last 24 Hours (Table) 05/09/19 05/09/19 05/09/19 Range/Units 12:14 16:57 20:47 WBC (3.8-10.6) k/uL RBC (4.30-5.90) m/uL Hgb (13.0-17.5) gm/dL MCV (80.0-100.0) fL MCHC (31.0-37.0) g/dL RDW (11.5-15.5) % Neutrophils # (Manual) (1.3-7.7) k/uL Lymphocytes # (Manual) (1.0-4.8) k/uL Macrocytosis ABG pH (7.35-7.45) ABG pCO2 (35-45) mmHg ABG pO2 (83-108) mmHg ABG HCO3 (21-25) mmol/L ABG Total CO2 (19-24) mmol/L ABG O2 Saturation (94-97) % Chloride (98-107) mmol/L Carbon Dioxide (22-30) mmol/L BUN (9-20) mg/dL Glucose (74-99) mg/dL POC Glucose (mg/dL) 167 H 192 H 214 H (75-99) mg/dL Magnesium (1.6-2.3) mg/dL 05/10/19 05/10/19 05/10/19 Range/Units 05:38 05:38 06:08 WBC 11.4 H (3.8-10.6) k/uL RBC 4.18 L (4.30-5.90) m/uL Hgb 11.8 L (13.0-17.5) gm/dL MCV 100.1 H (80.0-100.0) fL MCHC 28.1 L (31.0-37.0) g/dL RDW 23.6 H (11.5-15.5) % Neutrophils # (Manual) 10.37 H (1.3-7.7) k/uL Lymphocytes # (Manual) 0.46 L (1.0-4.8) k/uL Macrocytosis Marked A ABG pH (7.35-7.45) ABG pCO2 (35-45) mmHg ABG pO2 (83-108) mmHg ABG HCO3 (21-25) mmol/L ABG Total CO2 (19-24) mmol/L ABG O2 Saturation (94-97) % Chloride 89 L (98-107) mmol/L Carbon Dioxide 45 H* (22-30) mmol/L BUN 33 H (9-20) mg/dL Glucose 135 H (74-99) mg/dL POC Glucose (mg/dL) 175 H (75-99) mg/dL Magnesium 1.5 L (1.6-2.3) mg/dL 05/10/19 05/10/19 Range/Units 09:23 12:05 WBC (3.8-10.6) k/uL RBC (4.30-5.90) m/uL Hgb (13.0-17.5) gm/dL MCV (80.0-100.0) fL MCHC (31.0-37.0) g/dL RDW (11.5-15.5) % Neutrophils # (Manual) (1.3-7.7) k/uL Lymphocytes # (Manual) (1.0-4.8) k/uL Macrocytosis ABG pH 7.29 L (7.35-7.45) ABG pCO2 92 H* (35-45) mmHg ABG pO2 73 L (83-108) mmHg ABG HCO3 44 H* (21-25) mmol/L ABG Total CO2 47 H (19-24) mmol/L ABG O2 Saturation 91.2 L (94-97) % Chloride (98-107) mmol/L Carbon Dioxide (22-30) mmol/L BUN (9-20) mg/dL Glucose (74-99) mg/dL POC Glucose (mg/dL) 269 H (75-99) mg/dL Magnesium (1.6-2.3) mg/dL Assessment and Plan Plan: #1. acute hypoxic and hypercapnic respiratory failure due to to acute exacerbation of COPD, chest x-rays showed old granulomatous disease but no acute pulmonary process, CTA chest was negative for any evidence of pulmonary embolism, and patchy infiltrates/atelectasis and scarring in both lungs #2. Falls secondary to intoxication and some concern regarding alcohol withdrawal syndrome. #3. Atrial fibrillation with rapid ventricular response, not on anticoagulants due to frequent falls and medication compliance #4. Chronic and ongoing tobacco dependence suspect some component of chronic obstructive pulmonary disease #5. Liver cirrhosis. #6. Normocytic anemia #7. History of DVT #8. Hyperlipidemia. #9. Chronic alcohol abuse with pending DTs Plan: Blood gases were noted, chest x-ray has been noted, we'll give the patient Haldol and placed patient on BiPAP, transferred to the intensive care, in 1 hour, continue with IV Lasix at 40 mg every 8 hours, Riley has been placed, maintain accurate intake and output, daily weights. Has been afebrile, will continue same antibiotics, continue with IV steroids and nebulized bronchodilator is, we'll follow I performed a history & physical examination of the patient and discussed their management with my nurse practitioner, Le Calderon. I reviewed the nurse practitioner's note and agree with the documented findings and plan of care. Lung sounds are positive for diffuse wheezes throughout the lung moore. The findings and the impression was discussed with the patient. I attest to the do cumentation by the nurse practitioner. Time with Patient: Less than 30
[2019-05-10] MEDS: HALOPERIDOL LACTATE 5 MG/ML 1 ML VIAL IVP PRN (13:04)
[2019-05-10] MEDS ORDERED: HALOPERIDOL LACTATE 5 MG/ML 1 ML VIAL IVP ONE (13:04)
[2019-05-10] MEDS: LORazepam 2 MG/ML INJ IV STA (13:04)
[2019-05-10] MEDS ORDERED: MORPHINE SULFATE 4 MG/ML SYRINGE IM STA (13:18)
[2019-05-10] MEDS ORDERED: MORPHINE SULFATE 4 MG/ML SYRINGE IVP STA (13:20)
[2019-05-10 13:30] LABS: Glucose,Whole Blood 149 mg/dL (75-99)
[2019-05-10 14:18] LABS: ABG Base Excess 16.7 mmol/L; ABG Oxygen Saturation 94.6 % (94-97); ABG PH 7.34 (7.35-7.45); ABG PO2 79 mmHg (83-108); ABG TCO2 45 mmol/L (19-24); Allen Test Performed? Yes
[2019-05-10 14:23] LABS: ABG HCO3 42 mmol/L (21-25); ABG PCO2 78 mmHg (35-45)
[2019-05-10] MEDS: ATORVASTATIN 20 MG TAB PO SCH (15:00)
[2019-05-10] MEDS: BACITRACIN 500 UNIT/GM OINT 28.4 GM TUBE TOPICAL SCH (15:01)
[2019-05-10] MEDS: FERROUS SULFATE 325 MG TAB PO SCH ×2 (15:01→20:42)
[2019-05-10] MEDS: CYCLOBENZAPRINE 10 MG TAB PO SCH ×3 (15:01→21:17)
[2019-05-10] MEDS: HEPARIN SODIUM,PORCINE 5,000 UNIT/ML 1 ML VIAL SQ SCH ×2 (15:01→21:16)
[2019-05-10] MEDS: GABAPENTIN 400 MG CAP PO SCH ×2 (15:01→20:42)
[2019-05-10] MEDS: SPIRONOLACTONE 25 MG TAB PO SCH ×2 (15:02→21:16)
[2019-05-10] MEDS: METOPROLOL TARTRATE 50 MG TAB PO SCH ×3 (15:02→21:17)
[2019-05-10] MEDS: FUROSEMIDE 10 MG/ML 4 ML VIAL IV SCH ×3 (15:02→23:09)
[2019-05-10] MEDS: VERAPAMIL 80 MG TAB PO SCH ×3 (15:02→21:17)
[2019-05-10] MEDS: DEXMEDETOMIDINE/0.9% NACL(PMX) 400 MCG in EMPTY BAG 1 BAG IV SCH ×2 (15:21→23:32)
[2019-05-10] MEDS: NICOTINE 21MG/24HR PATCH TRANSDERM SCH (15:39)
[2019-05-10] MEDS ORDERED: METOPROLOL TARTRATE 5 MG/5 ML VIAL IVP ONE (18:04)
[2019-05-10 18:13] LABS: Glucose,Whole Blood 165 mg/dL (75-99)
[2019-05-10 18:49] LABS: Magnesium 1.6 mg/dL (1.6-2.3)
[2019-05-10 18:51] LABS: Potassium 5.7 mmol/L (3.5-5.1)
[2019-05-10] MEDS: MAGNESIUM SULFATE-D5W PMX 1 GM in DEXTROSE/WATER 1 100ML.BAG IVPB SCH ×2 (23:07→23:44)
[2019-05-11] MEDS: LORazepam 2 MG/ML INJ IV STA (00:05)
[2019-05-11] MEDS ORDERED: LORazepam 2 MG/ML INJ IV STA (00:08)
[2019-05-11] MEDS: INSULIN ASPART (NovoLOG) 100 UNIT/ML VIAL SQ SCH ×3 (00:10→12:36)
[2019-05-11] MEDS: IPRATROPIUM-ALBUTEROL 3 ML NEB INHALATION SCH ×3 (01:37→12:48)
[2019-05-11] MEDS: LORazepam 2 MG/ML INJ IV PRN ×4 (03:38→12:50)
[2019-05-11] MEDS: DEXMEDETOMIDINE/0.9% NACL(PMX) 400 MCG in EMPTY BAG 1 BAG IV SCH ×3 (03:45→13:02)
[2019-05-11 05:49] LABS: African American GFR (CKD) >90 (>60 ml/min/1.73 sqM); Magnesium 1.9 mg/dL (1.6-2.3); Non-African American GFR(CKD) >90 (>60 ml/min/1.73 sqM)
[2019-05-11] MEDS: methylPREDNISolone SOD SUCCI 125 MG/2 ML VIAL IV SCH (06:34)
[2019-05-11] MEDS: THIAMINE 100 MG TAB PO SCH (06:34)
[2019-05-11] MEDS: PANTOPRAZOLE 40 MG TABLET PO SCH (06:34)
[2019-05-11 07:00] LABS: Glucose,Whole Blood 154 mg/dL (75-99)
--- NOTE | 2019-05-11 07:18 | XR ---
EXAMINATION TYPE: XR chest 1V portable DATE OF EXAM: 05/11/2019 COMPARISON: 05/10/2019 HISTORY: Adventitious lung sounds. Shortness of breath. TECHNIQUE: Single frontal view of the chest is obtained. FINDINGS: In comparison to the prior of 05/10/2019 there is a new right middle lobe consolidation and peripheral left lower lung opacity. Innumerable pulmonary nodules remain. Cardiomediastinal silhouet te is stable. No acute osseous pathology. IMPRESSION: 1. New right middle lobe and left lower lung opacities that may represent atelectasis or pneumonia. 2. Redemonstration of innumerable bilateral pulmonary nodules, which can be seen with granulomatous d isease, tuberculosis, or sequela of varicella pneumonia.
[2019-05-11 07:21] LABS: Anisocytosis Moderate; HCT 46.2 % (39.0-53.0); HGB 13.1 gm/dL (13.0-17.5); Hypochromasia Marked; MCH 27.6 pg (25.0-35.0); MCHC 28.3 g/dL (31.0-37.0); MCV 97.4 fL (80.0-100.0); Macrocytosis Moderate; Mean Platelet Volume 7.2; Platelet Count 349 k/uL (150-450); RBC 4.74 m/uL (4.30-5.90); RDW 23.1 % (11.5-15.5); WBC 11.6 k/uL (3.8-10.6)
[2019-05-11 07:42] LABS: ALT 27 U/L (4-49); AST 29 U/L (17-59); African American GFR (CKD) >90 (>60 ml/min/1.73 sqM); Albumin 3.8 g/dL (3.5-5.0); Alkaline Phosphatase 81 U/L (38-126); Blood Urea Nitrogen 27 mg/dL (9-20); Calcium 9.5 mg/dL (8.4-10.2); Chloride 89 mmol/L (98-107); Glucose 141 mg/dL (74-99); Non-African American GFR(CKD) >90 (>60 ml/min/1.73 sqM); Potassium 5.2 mmol/L (3.5-5.1); Sodium 140 mmol/L (137-145); Total Protein 7.5 g/dL (6.3-8.2)
[2019-05-11 07:49] LABS: Anion Gap 10 mmol/L
[2019-05-11 07:50] LABS: Carbon Dioxide 41 mmol/L (22-30)
[2019-05-11] MEDS: FUROSEMIDE 10 MG/ML 4 ML VIAL IV SCH (08:22)
[2019-05-11] MEDS: CYCLOBENZAPRINE 10 MG TAB PO SCH (08:28)
[2019-05-11] MEDS: ATORVASTATIN 20 MG TAB PO SCH (08:28)
[2019-05-11] MEDS: MEROPENEM 1 GM in SODIUM CHLORIDE 0.9% 100 ML IVPB SCH (08:28)
[2019-05-11] MEDS: VERAPAMIL 80 MG TAB PO SCH ×2 (08:33→12:26)
[2019-05-11] MEDS: METOPROLOL TARTRATE 50 MG TAB PO SCH (08:33)
[2019-05-11] MEDS: SPIRONOLACTONE 25 MG TAB PO SCH (08:33)
[2019-05-11] MEDS: FERROUS SULFATE 325 MG TAB PO SCH (08:33)
[2019-05-11] MEDS: GABAPENTIN 400 MG CAP PO SCH (08:33)
[2019-05-11] MEDS: NICOTINE 21MG/24HR PATCH TRANSDERM SCH (08:48)
[2019-05-11] MEDS: HEPARIN SODIUM,PORCINE 5,000 UNIT/ML 1 ML VIAL SQ SCH (08:48)
[2019-05-11] MEDS ORDERED: ESMOLOL IN SODIUM CHLORIDE PMX 2.5 GM in SALINE 1 250ML.BAG IV SCH (09:00)
[2019-05-11] MEDS: CEFEPIME 1 GM in SODIUM CHLORIDE 0.9% 50 ML IVPB SCH (09:01)
[2019-05-11 09:40] VITALS: TEMP 97.8
[2019-05-11] MEDS: VANCOMYCIN 2,250 MG in SODIUM CHLORIDE 0.9% 500 ML 500 ML IVPB SCH (12:36)
[2019-05-11] MEDS: BACITRACIN 500 UNIT/GM OINT 28.4 GM TUBE TOPICAL SCH (12:39)
[2019-05-11 12:44] LABS: Glucose,Whole Blood 181 mg/dL (75-99)
--- NOTE | 2019-05-11 12:52 | P.PN ---
Subjective Progress Note Date: 05/11/19 Principal diagnosis: Acute hypoxic respiratory failure secondary to acute exacerbation of COPD A 54-year-old gentleman with a known history of alcoholism with daily and ongoing drinking. He presented here to the emergency room on 05/02/2019 after sustaining a fall. He was quite intoxicated. He was also found to be in atrial fibrillation with a rapid ventricular response. Serum alcohol level 160. Has a history of DVT, atrial fibrillation, obesity, and ongoing tobacco dependence, morbid obesity. He is seen today in consultation for his suspected COPD. Earlier today he developed restlessness anxiety agitation and was given Ativan and eventually Librium. He is currently arousable but hypoxic requiring 5 L high flow nasal cannula. X-ray shows old granulomatous disease. The patient is seen today 05/06/2019 in follow-up in the regular medical floor. He is awake and alert in no acute distress. Sitting up at the bedside. He is somewhat agitated and disoriented at times. Walking down the hallway naked. Looking for cigarettes and a audio visual design engineer. Family is currently at the bedside. His breathing is improved today compared to yesterday. He is more awake and alert. Continue O2 saturation in the 90s on 5 L nasal cannula. Continued on bronchodilators. On 05/07/2019 patient seen in follow-up on selective care unit, he is resting in bed, currently on 6 L of oxygen his pulse ox is 88%, still bronchospastic on today's exam, with basilar crackles, nonproductive cough. Patient is awake, and oriented 3, operative, non-agitated, and his confusion seems to have improved. last night was given a dose of IV Lasix, chest x-ray was negative for any acute pulmonary process, and showed old granulomatous disease, today patient continues on oral dose Lasix [address] angios of the chest was obtained in view of elevated d-dimer of 2.17, and was negative for any evidence of pulmonary embolism, and showed patchy infiltrates and atelectasis and scarring in both lungs, and numerous scattered peripheral small pulmonary nodules consistent with granulomatous disease. patient continues on Kefzol for skin abrasions involving his left lower extremity, and meropenem and vancomycin were added for possibility of pneumonic infiltrates On 05/08/2019 patient seen in follow-up on selective care unit. He is resting comfortably in bed, he states his breathing is improving, he sounds better on today's exam, still bronchospastic but less wheezy, yesterday we increased the patient's oral dose of Lasix, and currently patient is on 40 mg orally twice daily, remains on empiric antibiotics, he is not producing any significant amount of phlegm, remains afebrile, FiO2 is being weaned down, currently patient is down to 5 L. Mentation seems to be improving, patient is answering questions appropriately, seems to be cooperative for the most part but at times may get impulsive, and for that reason patient has a public safety officer at the bedside. he remains on combination of vancomycin and meropenem, and cefazolin On 05/09/2019 patient seen in follow-up on selective care unit, he is resting comfortably in bed, in no acute distress, still remains on 6 L of oxygen, and we have not been able to wean it down, patient earlier was turned down to 4 L and his pulse ox dropped to 84%, remains tachycardic with a heart rate up but in sinus mechanism. Afebrile. Still bronchospastic on today's exam, with some coarse bibasilar crackles. Congested cough, but no significant phlegm production, patient continues on cefepime, meropenem and vancomycin. IV steroids and nebulized bronchodilators. Patient seems to be appropriate, patient is cooperative, no signs of DTs On 05/10/2019 patient is asked any, he is satting 84% on 6 L, he is obviously cyanotic, gas was obtained showing acute on chronic hypercapnic respiratory failure with pCO2 of 92 and pH of 7.29, pO2 was 73 on 6 L of oxygen. BiPAP was ordered, however patient was combative, confused and he was attempting to go home. BiPAP was applied, stat chest x-ray was obtained, showing linear left basilar retrocardiac airspace disease could be related to atelectasis, and stable innumerable pulmonary nodules. Patient seems to be fluid overloaded with generalized pitting edema in his lower extremities up to his thighs and waist and his abdomen. His oral Lasix has been transitioned to IV Lasix, Riley catheter was placed. Patient continues on antibiotics, his pro-calcitonin level is pending, his been afebrile. bronchospastic on today's exam, continues on IV Solu-Medrol, will be transferred to the unit for closer monitoring repeat blood gas in 1 hour Patient was reevaluated today on 05/11/2019. Patient had a deterioration in his overall pulmonary status yesterday, he was transferred to the ICU with hypoxic and hypercapnic respiratory failure. Patient was placed on BiPAP, he was extremely combative, and he was doing poorly. Patient actually was about to be intubated and placed on mechanical ventilation because of his worsening mental status and inability to cooperate with BiPAP, however family changes CODE STATUS to DO NOT RESUSCITATE, and they are considering hospice. However they want home hospice, and considering the patient overall status at this point, I doubt he is stable enough to be transferred to home hospice. He probably would not make it home. I suggested to the family today possibly considering comfort care measures and take him off BiPAP, placed on a nonrebreather mask, and go with comfort care. They are still uncertain what they want to do, but his CODE STAT US nonetheless remains DO NOT RESUSCITATE. Patient remains on BiPAP, he is extremely difficult to arouse. I suspect that the patient has CO2 narcosis and hypercapnic respiratory failure. Labs from today including CBC, basic metabolic profile were all reviewed. No ABG was done today. Chest x-ray is suggestive of interstitial edema. Objective - Vital Signs Vital signs: Vital Signs Temp 97.8 F 05/11/19 07:30 Pulse 99 05/11/19 11:30 Resp 16 05/11/19 11:30 BP 157/104 05/11/19 11:30 Pulse Ox 91 L 05/11/19 11:30 Intake & Output 05/10/19 05/11/19 05/11/19 18:59 06:59 18:59 Intake Total 600 964.068 387.4 Output Total 1650 1315 1500 Balance -1050 -350.932 -1112.6 Weight 119.5 kg Intake: IV 600 780 180 0.9 KVO 180 30 Cefepime 1 gm In Sodium 100 50 Chloride 0.9% 50 ml @ 100 mls/hr IVPB Q12HR [facility] Rx #:[id number] Meropenem 1 gm In Sodium 100 100 Chloride 0.9% 100 ml @ 200 mls/hr IVPB Q8HR [facility] Rx#:[id number] Vancomycin 2,250 mg In 500 500 Sodium Chloride 0.9% 500 ml 500 ml @ 167 mls/hr IVPB Q12H [facility] Rx#: [id number] Intake, IV Titration 184.068 207.4 Amount Dexmedetomidine/0.9% NaCl 184.068 100 (Pmx) 400 mcg In Empty Bag 1 bag @ Titrate IV . Q0M [facility] Rx#:[id number] Esmolol in Sodium 107.4 Chloride Pmx 2.5 gm In Saline 1 250ml.bag @ 50 MCG/KG/MIN 35.85 mls/hr IV .Q6H59M [facility] Rx#: [id number] Oral 0 Output: Urine 1650 1315 1500 Other: Voiding Method Indwelling Catheter Indwelling Catheter Indwelling Catheter # Voids 1 # Bowel Movements 0 0 - Exam GENERAL EXAM: 54-year-old white male, unresponsive, on BiPAP. Head: Atraumatic normocephalic. HEENT: PERRLA, EOMI, no icterus. Moist mucous membranes. CHEST: No chest wall deformity. Symmetrical expansion. LUNGS: Diminished breath sounds at the bases, wheezing bilaterally. And bibasilar crackles noted. CVS: Regular rate and rhythm, normal S1 and S2, no gallops, no murmurs, no rubs ABDOMEN: Obese, Soft, nontender. No hepatosplenomegaly, normal bowel sounds, no guarding or rigidity. EXTREMITIES: No clubbing, no edema, no cyanosis, 2+ pulses and upper and lower extremities. SKIN: abrasion on his left alcaraz, with limited amount of serous drainage CENTRAL NERVOUS SYSTEM: Patient is obtunded, not arousable, suspect the patient has CO2 narcosis. On BiPAP - Labs CBC & Chem 7: 05/11/19 06:45 05/11/19 06:45 Labs: Abnormal Lab Results - Last 24 Hours (Table) 05/10/19 05/10/19 05/10/19 Range/Units 13:18 14:16 18:01 WBC (3.8-10.6) k/uL MCHC (31.0-37.0) g/dL RDW (11.5-15.5) % ABG pH 7.34 L (7.35-7.45) ABG pCO2 78 H* (35-45) mmHg ABG pO2 79 L (83-108) mmHg ABG HCO3 42 H* (21-25) mmol/L ABG Total CO2 45 H (19-24) mmol/L Potassium (3.5-5.1) mmol/L Chloride (98-107) mmol/L Carbon Dioxide (22-30) mmol/L BUN (9-20) mg/dL Glucose (74-99) mg/dL POC Glucose (mg/dL) 149 H 165 H (75-99) mg/dL 05/10/19 05/11/19 05/11/19 Range/Units 18:11 06:45 06:45 WBC 11.6 H (3.8-10.6) k/uL MCHC 28.3 L (31.0-37.0) g/dL RDW 23.1 H (11.5-15.5) % ABG pH (7.35-7.45) ABG pCO2 (35-45) mmHg ABG pO2 (83-108) mmHg ABG HCO3 (21-25) mmol/L ABG Total CO2 (19-24) mmol/L Potassium 5.7 H 5.2 H (3.5-5.1) mmol/L Chloride 89 L (98-107) mmol/L Carbon Dioxide 41 H* (22-30) mmol/L BUN 27 H (9-20) mg/dL Glucose 141 H (74-99) mg/dL POC Glucose (mg/dL) (75-99) mg/dL 05/11/19 Range/Units 06:49 WBC (3.8-10.6) k/uL MCHC (31.0-37.0) g/dL RDW (11.5-15.5) % ABG pH (7.35-7.45) ABG pCO2 (35-45) mmHg ABG pO2 (83-108) mmHg ABG HCO3 (21-25) mmol/L ABG Total CO2 (19-24) mmol/L Potassium (3.5-5.1) mmol/L Chloride (98-107) mmol/L Carbon Dioxide (22-30) mmol/L BUN (9-20) mg/dL Glucose (74-99) mg/dL POC Glucose (mg/dL) 154 H (75-99) mg/dL Assessment and Plan Assessment: #1. acute hypoxic and hypercapnic respiratory failure due to to acute exacerbation of COPD, chest x-rays showed old granulomatous disease but no acute pulmonary process, CTA chest was negative for any evidence of pulmonary embolism, and patchy infiltrates/atelectasis and scarring in both lungs #2. Falls secondary to intoxication and some concern regarding alcohol withdrawal syndrome. #3. Atrial fibrillation with rapid ventricular response, not on anticoagulants due to frequent falls and medication compliance #4. Chronic and ongoing tobacco dependence suspect some component of chronic obstructive pulmonary disease #5. Liver cirrhosis. #6. Normocytic anemia #7. History of DVT #8. Hyperlipidemia. #9. Chronic alcohol abuse Recommendation: Had a long discussion with his family including his brother and sister, CODE STATUS remains DO NOT RESUSCITATE, I have suggested comfort care measures. Family is insisting on taking him home with home hospice. We will let pediatric social worker handle this issue, We'll sign off and the patient. Based Time with Patient: Less than 30
[2019-05-11 12:56] VITALS: BP 154/103
[2019-05-11 13:31] VITALS: PULSE 138; RESP 23
[2019-05-11] MEDS: HALOPERIDOL LACTATE 5 MG/ML 1 ML VIAL IVP PRN (13:41)
--- NOTE | 2019-05-11 19:39 | P.DS ---
Providers Date of admission: 05/02/19 16:30 Attending physician: Michelle Wild Consults: 05/02/19 16:51 Consult Physician Routine Consulting Provider: Hola Elizabeth Consult Reason/Comments: afib Do you want consulting provider notified?: Yes 05/03/19 14:52 Consult Physician Routine Consulting Provider: Shelton Donaldson Consult Reason/Comments: bilate pulm nodules Do you want consulting provider notified?: Yes 05/08/19 08:08 Consult Physician Stat Consulting Provider: Suresh Gandara Consult Reason/Comments: to assess medical capacity , pt is trying to leave AMA and refused meds Do you want consulting provider notified?: Already Contacted Primary care physician: [facility] Course: hospital course: 54-year-old gentleman who has a known history of atrial fibrillation, COPD, DVT, GERD, hyperlipidemia, liver disease, liver cirrhosis, chronic EtOH abuse since he was a teenager; admitted to the hospital with atrial flutter and EtOH intoxication/withdrawal 05/04/2019 Patient is seen and evaluated in room at bedside; patient remains in atrial fibrillation with controlled heart rate in 90s; cardiology is following and recommending to increase metoprolol up to 50 mg 3 times a day and decrease atorvastatin to 20 mg daily; patient remains on CIWA protocol; does have history of alcoholic liver disease/ascites; we will consult GI for further recommendations 05/05/2019 Patient is seen and evaluated at bedside; was quite anxious and agitated earlier today with a CIWA score of 15; patient was given IV Ativan per protocol; I have started patient on Librium 20 mg by mouth 4 times a day along with CIWA protocol Cardiology has evaluated patient for paroxysmal atrial fibrillation; verapamil is increased to 80 mg 4 times a day; cardiology recommending discharge if heart rate remained stable Patient remains quite dyspneic requiring 5 L of oxygen; pulmonary has evaluated patient; chest x-ray with possible old granulomatous disease; recommending to titrate FiO2 to maintain O2 saturation greater than 90%; patient is started on bronchodilators and IV Solu-Medrol Patient has been evaluated by GI service and recommending follow-up as an outpatient for EtOH induced liver disease 05/06/2019 Patient is seen and evaluated for follow-up; remains on selective care unit; patient was more agitated and disoriented earlier this morning and was walking down the hallway naked; remains on IV Ativan per CIWA protocol; somewhat more awake and alert at the time of my exam; we will continue with current dose of Librium and possibly start tapering off in next 24 hours; patient remains on O2 5 L per nasal cannula keeping SpO2 greater than 92%; pulmonary service is following and recommending to continue with current bronchodilator therapy; we will continue with IV fluids, thiamine and folic acid; continue with current dose of Librium and Ativan per CIWA protocol; patient will follow-up with GI as an outpatient for EtOH induced liver disease Subjective: 05/07/2019 Patient is seen and examined by me for first time today. Patient is a pleasant 54 years old male, obese who presents with a fall related to his alcohol intoxication. Patient drinks 6 beers per day and smokes 1 pack per day, no illicit tracts. He he feels generally weak, today he is awake and alert 3, no signs of alcohol withdrawal or delirium tremens however remains on CIWA protocol and on Librium 25 mg by mouth every 8 hours. Also is on 6 L of oxygen via nasal cannula and he is saturating high 80s-low 90s, patient is not on home oxygen. CTA of the chest showing patchy infiltrates and atelectasis with numerous peripheral pulmonary nodule consistent with a granulomatous disease, pulmonary progressive disease. No pulmonary embolism. MAPS checked today shows he was not on [place], Librium, Ativan or benzodiazepine., However he was on gabapentin 600 mg 4 times a day. Patient couldn't walk to the bathroom with little difficulty. He denies exertional dyspnea. However he has cough and yellowish/clear phlegm. No chest pain. Patient remains on cefazolin, IV vancomycin, Librium and Ativan when necessary, Enrique is on solu-Medrol 60 mg PT/OT recommended home health care Dx: hospice care , end of life care . family made pt hospice care acute hypoxic and hypercapnic respiratory failure Acute COPD exacerbation Acute tracheobronchitis A. fib with RVR on anticoagulation due to noncompliance and high risk of falling Alcohol intoxication and abuse Alcohol withdrawal Fall secondary to deconditioning and above Liver cirrhosis, alcoholic liver disease Obesity Electrolyte abnormality with hypo-magnesium anemia and hyperkalemia Progressive patchy infiltrate and atelectasis with a numerous peripheral small pulmonary nodule consistent with granulomatous disease with no pulmonary embolism. Evaluated by draft roller picker 05/08/2019 Patient is awake and oriented to time, place and person this morning, however he could not remember why he was in the hospital and what medical problems he had although I talked to him about them yesterday. And I reoriented him again about his medical problem today and eventually he agrees to stay in the hospital and take medication. Patient was trying to leave AMA yesterday, family came to visit him yesterday and eventually he stayed in the hospital. This morning he was still in the bed side nurse that he wanted to leave again and he was refusing his medication, when I went to see the patient and family wanted him with his illnesses he then agrees to stay in the hospital and take medication. Sitter is at bedside for safety. We going to call psych consult to assess his capacity as he was refusing treatment at times and wanted to leave AMA. Currently patient is agreeable to send hospital but if he tries to leave we will petition him, also will keep sitter at bedside. Patient is slightly tachycardic and he is saturating 93% on 6 L oxygen. A febrile. He has leukocytosis of 11.8 K today but also is on steroids. BMP and electrolytes are unremarkable. Patient remains on cefazolin and IV vancomycin, he remains on Librium 25 mg decided to CIWA protocol, he is on Solu-Medrol 60 mg and gabapentin 1200 twice daily. Patient authorized me to talk to his family including his sister Remedios at [phone], after pt allowed me to you. I call her and discussed the case with her and she agreeable with the plan Discussed with staff 05/09/2019 Patient is awake and oriented day but his more sleepy. Patient showed understanding as by psychiatrist evaluation patient has capacity to make medical decision. I explained that to the patient and informed him he is not ready to be discharged. He is willing to stay in the hospital for now. I told the patient were not holding him against his will, however is not medically clear. Patient still on 6 liters ofxygen via nasal cannula. He is Still coughing and have some breathing difficulty. He denies chest pain. We will lower his Librium to 25 mg twice a day. Still tachycardic at 120-125. He saturating 85-93% on 5-6 L oxygen via nasal cannula. His WBC is 12.0 K. Hemoglobin stable. Potassium 5.4. Low potassium diet is ordered. Repeat chest x-ray showing diffuse nodularity throughout both lung moore oriented patient remains on vancomycin, we going to switch cefazolin to cefepime. Patient also on meropenem. 05/10/2019 Patient today is more obtunded, he is awake to verbal and tactile stimuli but more drowsy. He's wheezing significantly. ABG showing that he is retaining CO2 with pH of 7.29 and pCO2 of 92. Patient will be placed on BiPAP machine. His heart rate is around 120, blood pressure 1:30/93, he saturating 95% on 6 L. No fever. WBC is 11.4 K, hemoglobin is 11.8. Creatinine 0.8 Librium was stopped. His CIWA score is around 3. We will continue with Ativan as needed. 05/11/2018 pt remain in the ICU with no improvement in his course , before i come to see the pt , family were considering comfort care/hospice for the pt, during my exam the 2 sisters were at bed side and i discussed the case of the pt in length and details. his HR is 138, he is tachypneic at 23-26, confused and combative at t imes that needed restraints at times. bicarb is critically high at 41, k 5.2 on the high side, Last abg showing PH low of 7.34, high PCO2 of 78, despite being on BiPAP, and broad spectrum antibiotics, , high dose steroids and iv lasix, eventually family decided hospice, pulmonary service signed off. hospice,orders were ordered with the supervisor pleating who discussed them with the family and jenelle is DNR currently as well . -GENERAL: The patient is confused on BiPAP, combative at time on restraints HEENT: Pupils are round and equally reacting to light. EOMI. No scleral icterus. No conjunctival pallor. Normocephalic, atraumatic. No pharyngeal erythema. No thyromegaly. CARDIOVASCULAR: S1 and S2 present. No murmurs, rubs, or gallops. -PULMONARY: Chest is clear to auscultation, decreased air entry on both sides. with wheezing and capitation -ABDOMEN: Soft, nontender, distended due to fat (ultrasound showed no ascites), normoactive bowel sounds. No palpable organomegaly. MUSCULOSKELETAL: No joint swelling or deformity. EXTREMITIES: No cyanosis, clubbing, or pedal edema. SKIN: No rashes. no petechiae. time spent more than 35 min Patient Condition at Discharge: Stable Plan - Discharge Summary Discharge Rx Participant: No New Discharge Prescriptions: No Action RX: Gabapentin 1,200 mg PO BID RX: Cyclobenzaprine [Flexeril] 10 mg PO TID RX: Ipratropium [place] [Atrovent Hfa] 2 puff INHALATION RT-Q6H PRN PRN Reason: Shortness Of Breath RX: Diltiazem HCl [Diltiazem 24Hr CD] 120 mg PO DAILY RX: Omeprazole [PriLOSEC] 20 mg PO AC-BID RX: Atorvastatin [Lipitor] 40 mg PO DAILY RX: Furosemide [Lasix] 20 mg PO BID@0900,1600 #60 tab RX: Metoprolol Tartrate [Lopressor] 50 mg PO BID #60 tab RX: Ferrous Sulfate [Feosol] 325 mg PO BID #60 tab RX: Albuterol Sulfate [Ventolin HFA] 1 - 2 puff INHALATION RT-Q6H PRN PRN Reason: Shortness Of Breath RX: Thiamine [Vitamin B-1] 100 mg PO AC-BID RX: hydrOXYzine PAMOATE 25 mg PO QAM RX: hydrOXYzine PAMOATE 50 mg PO HS Discharge Medication List RX: Cyclobenzaprine [Flexeril] 10 mg PO TID 09/04/13 [History] RX: Gabapentin 1,200 mg PO BID 09/04/13 [History] RX: Ipratropium [place] [Atrovent Hfa] 2 puff INHALATION RT-Q6H PRN 09/04/13 [History] RX: Diltiazem HCl [Diltiazem 24Hr CD] 120 mg PO DAILY 10/17/17 [History] RX: Atorvastatin [Lipitor] 40 mg PO DAILY 10/18/17 [History] RX: Omeprazole [PriLOSEC] 20 mg PO AC-BID 10/18/17 [History] RX: Ferrous Sulfate [Feosol] 325 mg PO BID #60 tab 03/07/19 [Rx] RX: Furosemide [Lasix] 20 mg PO BID@0900,1600 #60 tab 03/07/19 [Rx] RX: Metoprolol Tartrate [Lopressor] 50 mg PO BID #60 tab 03/07/19 [Rx] RX: Albuterol Sulfate [Ventolin HFA] 1 - 2 puff INHALATION RT-Q6H PRN 03/15/19 [History] RX: Thiamine [Vitamin B-1] 100 mg PO AC-BID 05/02/19 [History] RX: hydrOXYzine PAMOATE 25 mg PO QAM 05/02/19 [History] RX: hydrOXYzine PAMOATE 50 mg PO HS 05/02/19 [History] Follow up Appointment(s)/Referral(s): Marli Hutchinson MD [STAFF PHYSICIAN] - 2 Weeks Dana Ledezma MD [STAFF PHYSICIAN] - 2 Weeks (egd and colonoscopy outpatient) [facility], [NON-STAFF] - Zander Rice DO [Primary Care Provider] - 1-2 days Patient Instructions/Handouts: Atrial Flutter (DC), Abuse of Alcohol (DC) Discharge Disposition: DISCH TO [facility]
[2019-05-12] MEDS ORDERED: VANCOMYCIN TROUGH DUE 1 EACH MISC MISCELLANE ONE (11:00)
== END 2019-05-11 13:44 | disposition hospice, inpatient (51) | DRG 308 ==
LOC: EC 14:23 → 3SCARD 16:30 → 2SICU 05-10 12:55
PROVIDERS: ADMIT Hospitalist; ATTEND Hospitalist
PROC: 5A09357 Assistance with Respiratory Ventilation, Less than 24 Consecutive Hours, Continuous Positive Airway Pressure (ICD-10-PCS; principal; 2019-05-10 16:30)
PROC: 05HD33Z Insertion of Infusion Device into Right Cephalic Vein, Percutaneous Approach (ICD-10-PCS; 2019-05-10 16:30)
DX: I48.3 Typical atrial flutter (principal); G93.41 Metabolic encephalopathy; J96.21 Acute and chronic respiratory failure with hypoxia; J96.22 Acute and chronic respiratory failure with hypercapnia; E87.1 Hypo-osmolality and hyponatremia; F10.231 Alcohol dependence with withdrawal delirium; J44.0 Chronic obstructive pulmonary disease with (acute) lower respiratory infection; J44.1 Chronic obstructive pulmonary disease with (acute) exacerbation; J98.11 Atelectasis; F10.24 Alcohol dependence with alcohol-induced mood disorder; L03.116 Cellulitis of left lower limb; L03.115 Cellulitis of right lower limb; D63.8 Anemia in other chronic diseases classified elsewhere; E66.9 Obesity, unspecified; Z68.33 Body mass index [BMI] 33.0-33.9, adult; E78.5 Hyperlipidemia, unspecified; E83.42 Hypomagnesemia; E87.5 Hyperkalemia; E87.70 Fluid overload, unspecified; F10.229 Alcohol dependence with intoxication, unspecified; Y90.6 Blood alcohol level of 120-199 mg/100 ml; F17.210 Nicotine dependence, cigarettes, uncomplicated; Z71.41 Alcohol abuse counseling and surveillance of alcoholic; F41.9 Anxiety disorder, unspecified; I10 Essential (primary) hypertension; I44.0 Atrioventricular block, first degree; I45.10 Unspecified right bundle-branch block; I48.0 Paroxysmal atrial fibrillation; J20.9 Acute bronchitis, unspecified; J84.10 Pulmonary fibrosis, unspecified; K21.9 Gastro-esophageal reflux disease without esophagitis; K70.31 Alcoholic cirrhosis of liver with ascites; R29.6 Repeated falls; D50.9 Iron deficiency anemia, unspecified; K72.90 Hepatic failure, unspecified without coma; M19.90 Unspecified osteoarthritis, unspecified site; D72.829 Elevated white blood cell count, unspecified; T38.0X5A Adverse effect of glucocorticoids and synthetic analogues, initial encounter; Z78.1 Physical restraint status; Z60.2 Problems related to living alone; Z51.5 Encounter for palliative care; Z66 Do not resuscitate; S00.81XA Abrasion of other part of head, initial encounter; W19.XXXA Unspecified fall, initial encounter; Z91.81 History of falling; Z79.51 Long term (current) use of inhaled steroids; Z79.899 Other long term (current) drug therapy; Z80.9 Family history of malignant neoplasm, unspecified; Z86.718 Personal history of other venous thrombosis and embolism; Z91.19 Patient's noncompliance with other medical treatment and regimen; Z96.641 Presence of right artificial hip joint; R45.1 Restlessness and agitation; Z88.1 Allergy status to other antibiotic agents; Z88.5 Allergy status to narcotic agent; Z88.0 Allergy status to penicillin
CPT/HCPCS: 36410; 36415; 36600; 70450; 71045; 71046; 71275; 72125; 76705; 76937; 80048; 80053; 80202; 80320; 81003; 82140; 82150; 82565; 82805; 83605; 83690; 83735; 84132; 84145; 84484; 85025; 85027; 85379; 85610; 85730; 93005; 94640; 94660; 94760; 96365; 96366; 96372; 96375; 96376; 99291

== ENCOUNTER 2019-05-11 13:23 | Inpatient (IN) | payer MEDICAID ==
[2019-05-11] MEDS ORDERED: ONDANSETRON 4 MG/2 ML VIAL IVP PRN (13:33)
[2019-05-11] MEDS ORDERED: LORazepam 2 MG/ML INJ IV PRN (13:33)
[2019-05-11] MEDS ORDERED: ACETAMINOPHEN SUPPOSITORY 650 MG SUPP RECTAL PRN (13:33)
[2019-05-11] MEDS ORDERED: HALOPERIDOL LACTATE 5 MG/ML 1 ML VIAL IVP PRN (13:45)
[2019-05-11] MEDS: MORPHINE SULFATE (100 MG/2 ML) 100 MG in SODIUM CHLORIDE 0.9% 100 ML IV SCH ×2 (14:54→21:38)
[2019-05-11] MEDS: LORazepam 2 MG/ML INJ IV PRN ×2 (15:27→18:21)
[2019-05-11] MEDS ORDERED: HALOPERIDOL LACTATE 5 MG/ML 1 ML VIAL IM STA (16:06)
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
== END 2019-05-11 22:10 | disposition expired | DRG 951 ==
LOC: 2SICU 14:14 → 4SSUR 15:52
PROVIDERS: ADMIT Internal Medicine; ATTEND Internal Medicine
DX: Z51.5 Encounter for palliative care (principal); Z66 Do not resuscitate; K74.60 Unspecified cirrhosis of liver; J44.9 Chronic obstructive pulmonary disease, unspecified; E78.5 Hyperlipidemia, unspecified; F17.200 Nicotine dependence, unspecified, uncomplicated; F41.9 Anxiety disorder, unspecified; I48.91 Unspecified atrial fibrillation; K21.9 Gastro-esophageal reflux disease without esophagitis; K64.9 Unspecified hemorrhoids; M19.90 Unspecified osteoarthritis, unspecified site; Z79.899 Other long term (current) drug therapy; Z96.641 Presence of right artificial hip joint; Z88.1 Allergy status to other antibiotic agents; Z88.0 Allergy status to penicillin; Z88.2 Allergy status to sulfonamides; Z88.8 Allergy status to other drugs, medicaments and biological substances; Z86.718 Personal history of other venous thrombosis and embolism; Z80.9 Family history of malignant neoplasm, unspecified; Z82.49 Family history of ischemic heart disease and other diseases of the circulatory system